=== PATIENT | female | born 1945 | race Caucasian/White ===

== ENCOUNTER → 2021-12-19 15:11 | Outpatient (BNVA) | payer MEDICARE, OTHER, SELFPAY | PROVIDERS: Referring Provider Student in an Organized Health Care Education/Training Program; Visit Provider Specialist | DX: M17.0 Bilateral primary osteoarthritis of knee (principal); M25.561 Pain in right knee; G89.29 Other chronic pain; M21.161 Varus deformity, not elsewhere classified, right knee; R22.41 Localized swelling, mass and lump, right lower limb; M21.162 Varus deformity, not elsewhere classified, left knee | CPT/HCPCS: 73560; 73565; 99204 ==

== ENCOUNTER 2022-01-08 16:22 | Outpatient (CLI) | payer MEDICARE, OTHER, SELFPAY ==
--- NOTE | 2022-01-08 16:15 | USCV_ITS ---
Kait Simmons Age: 76 Gender: F : 1945 Exam Date: 01/08/2022 16:36 Ordering Phys: Rajni Drummond MD Technologist: Miller Norton [place]am [place] [facility] [place] Indication: swelling PROCEDURES: Venous duplex imaging was performed in bilateral lower extremities. The following venous structures were evaluated: common femoral vein, profunda vein, proximal portion of the greater saphenous vein, superficial femoral vein, and the popliteal vein. In addition, the posterior tibial and peroneal trunk were evaluated. Serial compression, augmentation maneuvers, and spectral Doppler flow evaluation were performed. FINDINGS: Normal 2-D Doppler and augmentation and compressibility throughout the lower extremity venous structures. Additional imaging through the proximal calf veins also reveals no thrombus. Limited evaluation of the greater saphenous vein is patent with no thrombus.. CONCLUSIONS No evidence of right lower extremity DVT. No evidence of left lower extremity DVT. Triston Saunders MD (Electronically Signed) Final Date: 08 January 2022 17:02 S
== END 2022-01-08 16:23 | disposition home or self-care (01) ==
PROVIDERS: PCP Student in an Organized Health Care Education/Training Program; Visit Provider Specialist
DX: M79.89 Other specified soft tissue disorders (principal)
CPT/HCPCS: 93970

== ENCOUNTER 2022-01-15 16:11 | Observation (INO) | payer MEDICARE, OTHER, SELFPAY ==
[2022-01-08 13:17] VITALS: BMI 22.7
--- NOTE | 2022-01-08 14:01 | ANES.PREANE2 ---
Pre-Anesthetic Assessment Height/Weight: Height 1.57 m Weight 56.472 kg Preop Diagnosis: Degenerative osteoarthritis right knee Operation Date: 01/15/22 10:25 Proposed Procedures p RIGHT TOTAL KNEE WITH REVISION COMPONENTS 59778,M21.161,M21.162,M17.10(Right) - Rajni Drummond MD Familial anesthetic complications: Patient told she needs a glidescope size 3 - probable anterior airway Social No alcohol and No tobacco Exam alert, oriented x 3, clear to auscultation bilaterally and regular rate & rhythm Airway Submandibular: within normal limits Cervical ROM: within normal limits Mallampati: Class I Dentition: other (missing) Pulmonary None reported CV/HEM Hypertension None reported Hepatic None reported GI None reported Metabolic None reported Musc/skel None reported Neuropsych None reported Anesthetic Plan ASA status: 2 Anesthesia: MAC and Regional (specify below) Risk of > 500 ml blood loss (7ml/kg in children): Yes, adequate IV access and fluids planned Medications/Allergies Home Medications Medication Instructions Recorded Confirmed Last Taken Type lisinopril 20 mg tablet 20 mg PO DAILY 12/19/21 01/08/22 Unknown History Allergies Allergy/AdvReac Type Severity Reaction Status Date / Time prochlorperazine Allergy ALGY-Anaphy Verified 01/08/22 13:15 [From Compazine] laxis [facility] Anesthesia Social History Smoking and tobacco status: never smoked Second hand smoke exposure: No Smoking risk assessment/counseling performed?: No Alcohol intake: never Adopted: No Caregiver/support person: Yes Lives independently: No Household members: spouse Housing: House Marital status: Number of children: 0 Number of grandchildren: 0 Highest education level completed: High School Graduate service: No Current occupational status: retired Current occupational exposures/hazards: No Pets and animals: No Sexually active: Yes Current gender identity: Female Special abilio needs: No Agree to transfusion: Yes Data Anesthesia : 01/08/22 13:45 01/08/22 13:45 Cardiac Studies: No Data to Display
[2022-01-08 14:03] LABS: Basophils % 0.5 %; Eosinophils # 0.1 10^3/uL (0.0-0.8); Eosinophils % 0.9 %; Hematocrit 35.8 % (37.0-47.0); Hemoglobin 11.2 g/dL (11.5-15.3); Lymphocytes # 1.8 10^3/uL (0.8-4.8); Lymphocytes % 23.1 %; Mean Corpuscular HGB Conc 31.3 g/dL (30.0-36.0); Mean Corpuscular Hemoglobin 25.5 pg (28.0-34.0); Mean Corpuscular Volume 81.4 fl (81-99); Mean Platelet Volume 9.9 fL (7.4-10.4); Monocytes # 0.8 10^3/uL (0.2-0.9); Monocytes % 9.5 %; Neutrophils # 5.17 10^3/uL (1.8-7.7); Neutrophils % 65.6 %; Nucleated Red Blood Cells % 0 %; Platelet Count 316 10^3/cmm (130-400); Red Cell Distribution Width 18.6 % (12.1-15.1); White Blood Count 7.9 10^3/uL (4.0-10.0)
[2022-01-08 14:22] LABS: Alanine Aminotransferase 18 U/L (0-33); Albumin Level 4.3 g/dL (3.5-5.2); Alkaline Phosphatase 82 U/L (35-105); Anion Gap 11.5 (5-19); Aspartate Amino Transferase 21 U/L (0-32); Blood Urea Nitrogen 14 mg/dL (8-23); Calcium 9.7 mg/dL (8.5-10.5); Carbon Dioxide 28 mmol/L (22-29); Chloride 101 mmol/L (98-107); Globulin 3.4 g/dL (1.3-4.6); Glucose 93 mg/dL (65-115); Osmolality Calculated 282 mOsm/kg (285-295); Potassium 4.5 mmol/L (3.5-5.1); Sodium 136 mmol/L (136-145); Total Bilirubin 0.2 mg/dL (0.15-1.2); Total Protein 7.7 g/dL (6.6-8.7)
[2022-01-08 14:23] LABS: Add Urine Microscopic? YES; Bilirubin Urine Neg (Negative); Blood Urine Neg (Negative); Glucose Urine UA Norm (Normal); Ketones Urine Negative (Negative); Leukocyte Esterase Urine 2+ (Negative); Nitrate Urine Negative (Negative); Protein Urine Neg (Negative); Specific Gravity, Urine 1.005 (1.005-1.030); Urine Appearance Clear (CLEAR); Urine Color Yellow (Yellow); Urobilinogen Urine Norm (Negative); pH Urine 6 (5-7)
[2022-01-08 14:24] LABS: Add Urine Culture? No; RBC Urine 0-4 /hpf (0-2); Renal Epithelial Cells Urine 0-4 /hpf; Squamous Epithelial Cell Urine 0-4 /hpf (0-5); WBC Urine 0-4 /hpf (0-5)
[2022-01-15] VITALS (18 sets, daily range): BP systolic 149–186; BP diastolic 73–97; PULSE 80–97; RESP 14–20; TEMP 36.2–36.7; O2SAT 91–100
--- NOTE | 2022-01-15 09:07 | P.ANESUD_ITS ---
Pre-Anesthetic Update Pre-Anesthetic Assessment: Date of Surgery/Procedure: 01/15/22 Preop [place] gnosis: Degenerative osteoarthritis right knee Proposed Procedure: Operation Date: 01/15/22 10:25 Proposed Procedures p RIGHT TOTAL KNEE WITH REVISION COMPONENTS 74469,M21.161,M21.162,M17.10(Right) - Rajni Drummond MD Any changes to Pre-Anesthetic Assessment?: No Last Intake: Intake Last Liquid Date 01/14/22 Last Liquid Time 22:30 Last Solid Date 01/14/22 Last Solid Time 22:30 Vitals: Temperature 97.7 F 01/15/22 08:46 Temperature Source Temporal Artery S can 01/15/22 08:46 Pulse Rate 94 01/15/22 08:46 Pulse Rhythm 01/15/22 08:48 Pulse Strength 3+ Normal 01/15/22 08:48 Respiratory Rate 16 01/15/22 08:46 Blood Pressure 176/96 01/15/22 08:46 Blood Pressure Jessy n 122 01/15/22 08:46 Pulse Oximetry 99 01/15/22 08:46 Oxygen Delivery Me thod 01/15/22 08:48 Exam: Pre-Anes Outpt Exam: alert, oriented x 3, clear to auscultation bilaterally and regular rate & rhythm Other Pertinent Information: Other Pertinent Information: We discussed risk and benefits of general vs spinal anesthesia including DVT risk, infection, paralysis/catastrophic nerve injury, back bruising/pain, PDPH, conversion to general in case of spinal, PONV, sore throat (sometimes severe), corneal abrasion, positioning and peripheral nerve injuries, life threatening a llergic reaction, post operative ICU admission requiring prolonged intubation, stroke, heart attack, , post operative delirium and/or post operative cognitive decline, and rare incidences of recall (under general anesthesia). We discussed risk and benefits of nerve block for post op pain control including management of pain and titration of pain medications as signs/symptoms of nerve block wearing off begin to appear and/or prior bed. We discussed risk of failed nerve block, vascular injury or other vital structure injury, abscess/infection, LAST, and nerve injury. Patient re consents to spinal with adductor canal block for post op pain control. Cardiac Studies: No Data to Display
[2022-01-15] MEDS: acetaminophen 1,000 MG/100 ML PIGGYBACK 400 MG IV ×2 (09:40→17:02)
[2022-01-15] MEDS: sodium chloride 0.9% 1,000 ML 30 ML IV (09:43)
[2022-01-15] MEDS: CELEcoxib 200 mg Capsule 400 MG PO (09:45)
--- NOTE | 2022-01-15 09:48 | P.HPUD_ITS ---
Surgery/Procedure H&P Update DATE OF PROCEDURE: January 15, 2022 DATE H&P PERFORMED: 12/19/21 H&P UPDATE INFORMATION: I have reviewed H&P completed within last 30 days, I have examined patient prior to procedure, No changes to prior documentation and H&P is in [facility] [place] [facility] on date indicated PREOP DIAGNOSIS: Degenerative osteoarthritis right knee PLANNED PROCEDURE: Operation Date: 01/15/22 10:25 Proposed Procedures p RIGHT TOTAL KNEE WITH REVISION COMPONENTS 74574,M21.161,M21.162,M17.10(Right) - Rajni Drummond MD Related Problem List Diagnoses (1) Primary osteoarthritis of right knee: (2) Varus deformity, not elsewhere classified, right knee:
--- NOTE | 2022-01-15 10:26 | ANES.PROC ---
Anesthesia Procedures Procedure/Date: 01/15/22 Nerve Block ^: Nerve Block 1: Main Anesthesia: spinal anesthesia block Time Out Performed: Yes Consent: requested by attending/covering physician, from patient, risks and benefits reviewed and patient agrees to proceed Nerve block location: adductor canal Anesthesia monitors applied: pulse oximetry, EKG, BP cuff and oxygen Nerve block position: semi sitting Anesthetic Used: bupivacaine 0.5% Amount of anesthesia used (mL): 20 Ultrasound used to: recognize landmarks and visualize and ID femerol nerve Nerve Stimulator Used?: No Interscalene/Femoral BLK: 4 stimuplex 21 g needle used for position and inplane approach, visualize local anesthetic spread and no vascular puncture identified Injection: neg aspiration of heme Patient Tolerated Procedure: well Complications: none Additional Comments: After time out sterile prep, using sterile technique, and using real time US guidance for target selection needle was inserted with real time visualization of needle entry and real time visualization of needle advancement toward intended target. Negative aspiration. LA injected incrementally with negative aspiration every 5 cc and real time US visualization of LA spread throughout procedure. Tolerated well. Image(s) saved.
--- NOTE | 2022-01-15 10:28 | SUR.PHASEI ---
10:10 TIME OUT PERFORMED..NERVE BLOCK PERFORMED BY Kane. PATIENT TOLERATED WELL.
[2022-01-15] MEDS: ceFAZolin 2,000 MG in sodium chloride 0.9% (plus) 50 ML 100 MG IV ×2 (11:25→18:55)
[2022-01-15] MEDS: vancomycin 1,000 MG SDV 1000 MG XX (12:28)
[2022-01-15] MEDS: ceFAZolin 2,000 mg SDV 2000 MG IRRIGATION (12:30)
--- NOTE | 2022-01-15 14:50 | XRR_ITS ---
PROCEDURE INFORMATION: Exam: XR Right Knee Exam date and time: 01/15/2022 3:02 PM Age: 76 years old Clinical indication: Device placement; Joint replacement hardware; Prior surgery; Surgery date: Post-operative (0-2 days); Surgery type: Status post revision right knee arthroplasty TECHNIQUE: Imaging protocol: Radiologic exam of the Right knee. Views: 3 views. COMPARISON: CR XR knees AP WB w RT lmt ORTH 12/19/2021 3:16 PM FINDINGS: Bones/joints: Metallic knee replacement hardware is in place in good position showing no evidence of loosening. The [place] bones are unremarkable. Soft tissues: Postoperative soft tissue findings are seen in the anterior knee with effusions, subcutaneous emphysema, and metallic alix in place. XR/XR knee RT 3V* [id number] IMPRESSION: 1. Metallic knee replacement in good position. 2. No acute bony abnormality. 3. Postoperative soft tissue effects anterior knee
--- NOTE | 2022-01-15 14:53 | PM.OP ---
Operative Report Date of procedure: January 15, 2022 Pre-op diagnosis: Right knee severe degenerative osteoarthritis with varus deformity and significant bone loss Post-op diagnosis: Right knee severe degenerative osteoarthritis with varus deformity and significant bone loss Post-op findings: Large bone loss particularly medial femoral condyle with cystic change and complete obliteration of bone posteriorly. Severe degenerative osteoarthritis with valgus deformity and lack of range of motion. Procedure done: Revision cemented right total knee arthroplasty utilizing revision femoral and tibial components with augments Implants: [employer] total knee system with a size 2 universal cemented triathlon tibial baseplate, a triathlon total knee cemented stem size 12 mm x 50 mm, tibial augment, half blocks, size 2 x 5 mm for medial and lateral tibia, size 2 right posterior stabilized cemented triathlon femur with a size 2 x 10 mm posterior augment. The triathlon X3 total stabilizer plus tibial insert size 2 x 11 mm and an asymmetric patella size 29 x 9 mm Specimens removed/disposition: Bone, disposed of, and soft tissue cyst sent to pathology Pathology: Cyst Surgeon: Rajni Drummond Laborer Syrup Machine: [facility] operating room technicians Anesthesia: General (General intubated following failed attempt at spinal anesthesia, ASA 2, with supplemental block) Estimated blood loss (mL): 100 Tourniquet time (min): 90 (At 250 mmHg) IV fluids (mL): 1,200 Urine output (mL): 250 Complications: None Findings: Significant synovitis and joint effusion. Cystic pockets within the synovium consistent with a large joint effusion. Cystic changes within the bone consistent with a severe degenerative osteoarthritis. Large bone loss medial femoral condyle primarily posteriorly. Condition: stable Disposition: PACU (Then discharged to floor for postoperative rehabilitation and pain management) Brief History: Kait Simmons is a new 76 year old female patient who is here today due to right knee pain. Patient states that she has had pain since July of this year with no known injury.? Patient rated pain at 5/10 in clinic, but she had significant limitations in her activities of daily living. Patient has tried Aleve and ibuprofen but it did not help relieve pain.? Pain in her right knee wakes her up at night, and she is unable to go up/down stairs or walk long distances. After discussion in the office, the patient was noted to have severe deformity of the knee. There were large cystic changes within the knee. We discussed the need for total knee arthroplasty, but the patient was advised that this would essentially be a revision surgery rather than a primary as we would require wedges and stems to correct the deformity. She had significant posterior subluxation and varus deformity to the knee. Risks and complications were discussed with her. Consents were signed. Questions were answered. Procedure: The patient was brought to the operating theater, and after undergoing adequate general anesthesia, intubated, supplemented with regional block and sedation, ASA 2, the right lower extremity was prepped with Dura-Prep and draped in usual fashion following placement of a tourniquet high on the leg. The leg was then draped free. Following prepping and draping, the leg was exsanguinated, and the tourniquet was elevated to 250 mmHg for a total tourniquet time of 90 minutes.? Prior to elevation of the tourniquet, but following exposure of the site of surgery, a surgical pause was performed. At the time of the surgical pause, we confirmed the site and side of surgery. Additionally, we confirmed the appropriate and timely administration of preoperative antibiotics, Ancef 2 g. and Transexemic acid 1 g with an additional gram of Transexemic acid being given at the end of the surgical procedure. The availability of equipment was confirmed, and the patient's identity was verbalized as well. Following the surgical pause, an incision was made centering over the patella continuing proximally and distally as necessary to allow access to the knee joint. Dissection continued through skin and soft tissues using a scalpel. Hemostasis was obtained using electrocautery. The skin incision was followed by a median parapatellar arthrotomy. There was noted to be significant fluid within the joint. There was also noted to be a large cyst along the medial aspect of the suprapatellar pouch. This was resected and sent to pathology. Following this, the leg was extended and the patella was everted. The leg was then returned to flexed position.? The distal femur was exposed and a drill hole was made in this for placement of the distal femoral jig. The distal femoral jig was set at 5? of valgus. The distal femoral cutting block was then placed in appropriate position, and an monica wing was used to confirm an appropriate amount of distal femur would be resected.? The distal femoral resection was accomplished with 8 mm of bone being resected distally.? After the distal femoral resection had been accomplished, the femur was measured and it measured a size 2 anterior to posterior.? Medial lateral dimension was a size 1-2.? A size 2 femoral cutting block was placed in position, and we were then able to accomplish the anterior, posterior and chamfer cuts. This jig was then removed. There was noted to be a large cyst in the medial femoral condyle. This essentially encompassed the entire medial femoral condyle. There was deficiency of bone distally posteriorly and laterally. This was cleaned with a combination of curettes and a rongeur. Secondary to this large cyst, we placed a posterior cruciate retaining trial prosthesis, size 2, in place to allow us to retract the femur posteriorly and progressed with preparation of the proximal tibia. The posterior knee retractor was placed along with medial and lateral retractors. Further resection of the menisci was accomplished as we had better visualization. A complete meniscectomy was performed both medially and laterally with care being taken to protect the popliteus. Retractors were then placed so that the proximal tibia was well visualized. A drill hole was then made in the tibia for placement of the intramedullary guide. This guide was placed so that approximately 2 mm of bone would be resected from the deficient lateral tibial plateau, and with this, we resected approximately 9 mm from the nondeficient lateral aspect of the tibia. There was noted to be a small area on the posterior medial corner of the proximal tibia which was not resected, but we elected to leave this rather than proceed with further resection. The intramedullary guide was utilized supplemented with an extramedullary guide to assure appropriate alignment for the proximal tibial resection. The proximal tibial jig was then evaluated, pinned in position, and the proximal tibial resection was accomplished without difficulty. The jig was removed, and the proximal tibia was measured. It measured a size 2. At this point, a posterior cruciate retaining trial prosthesis was removed. We then placed the cutting guide to remove the notch for a posterior stabilized femoral component with matching tibial insert. The notch was removed uneventfully. Further evaluation of the medial femoral condyle caused me to elect to resect approximately 10 mm from the posterior aspect of the femur with plans to place a posterior femoral augment. Once we had resected for this augment, we had a contained femoral defect which was still large, but it was discharged closed posteriorly and nearly completely closed laterally. As there were no trials for the femur with posterior femoral augment, we performed a trial reduction with the actual femoral component with the augment in position. We then attempted a trial reduction with a size 2 by 13 mm insert.? Osteophytes were also removed from the tibia.? The femoral component was placed in position for the trial reduction, and the knee was placed through range of motion.? There was some laxity laterally, and therefore, we performed a slight medial release and a slight posterior release. We were then able to place a size 2 x 16 mm insert. With this, there was excellent stability with excellent varus-valgus alignment with appropriate patellar tracking.? Extension was noted to be full as well.? This was felt to be the appropriate size insert. There was full extension and flexion without lift off and the rotation of the tibia was marked.? Alignment was checked from the hip to the ankle, and this was noted to be appropriate as well. Rather than placed a 16mm insert in position, we elected to place augments on the tibia 5 mm medially and 5 mm laterally to allow us to use an 11 mm insert. A trial reduction was then accomplished with this construct, and we had the same appropriate range of motion, flexion, and extension. The wound was copiously irrigated. The surfaces were dried. Components were put together including the femur which had been previously constructed. The tibia was constructed with a medial and lateral augment as well as a short stem size 12 mm x 50 mm. Proximal tibia was prepared for the stem with a drill and a broach. This small area of posterior medial corner was drilled with a pin on power to allow cement penetration in this area. Cementing was then accomplished of the tibia and femoral components. The size 2 x 11 mm total stabilizer plus insert was placed in position. We did not use the fixation pin as we were repairing it with a posterior stabilized femoral component rather than a total stabilized femoral component. Attention was then directed to the patella. The patella was measured with a caliper.? We resected sufficient patella to leave approximately 14 mm of patella remaining.? Measurements of the patella then indicated that a size asymmetric 29 mm x 9 mm was the appropriate patellar size. We then placed the jig to drill for the 3 pegs of the cemented patella, and these drill holes were made without incident. The size 29 mm x 9 mm asymmetric patella was cemented into position without difficulty. It was held until cement had fully cured and all surfaces of the prosthetic components. Excess cement was cleared from all areas prior to cement curing. The knee was then placed through range of motion once again. All components were evaluated for any further extruded cement. The patella was noted to track nicely without evidence of subluxation.? Exparel was injected following placement of the components. The knee was irrigated with 20 mL of Betadine and 500 mL of normal saline, and this was allowed to remain in the knee for 3-4 minutes.? The knee was then copiously irrigated and suctioned dry. Attention was then directed to closure. Closure was accomplished with 0 Vicryl in the fascial tissues.? Following this, a 2-0 Monocryl was used in the subcutaneous tissues, and the skin was closed with skin alix. A sterile dressing was then placed consisting of Dermabond Prineo, Op Site, sterile soft roll, and an Justen wrap. The patient was returned the Recovery Room in a satisfactory condition. X-rays were obtained there.? The patient will be discharged to the floor for postoperative rehabilitation and pain management. Related Problem List Diagnoses (1) Primary osteoarthritis of right knee: (2) Varus deformity, not elsewhere classified, right knee:
--- NOTE | 2022-01-15 16:25 | PC.NURSE ---
Dr. Drummond contacted and notified of patients blood pressures of 182/93 and repeat of 174/83 via ADDING MACHINE OPERATOR. ADDING MACHINE OPERATOR notified RN Dr. Drummond gave orders to give daily blood pressure medication. ALBINO GOMEZ
--- NOTE | 2022-01-15 16:39 | PC.NURSE ---
Orders clarified on continuous IV infusion. Orders received to have 1/2 NS at 30 mls/hr. ALBINO GOMEZ
[2022-01-15] MEDS: chlorhexidine gluconate 0.12% Btl 473 mL 30 ML MUCOUS MEM ×2 (17:02→21:40)
[2022-01-15] MEDS: lisinopril 20 mg Tablet PO (17:02)
[2022-01-15] MEDS: sennosides-docusate Tablet 2 TAB PO (17:02)
[2022-01-15] MEDS: calcium carbonate 500 mg Chew Tablet 1000 MG PO (17:16)
[2022-01-15] MEDS: sodium chloride 0.45% 1,000 ML 30 ML IV (17:17)
[2022-01-15] MEDS: iron polysaccharide complex 150 mg Capsule PO (17:20)
[2022-01-15] MEDS: mupirocin oint 22 gm 1 APPLIC NASAL (18:23)
[2022-01-15] MEDS: CELEcoxib 200 mg Capsule PO (21:40)
[2022-01-16] VITALS: BP 150/74; PULSE 80; O2SAT 96
[2022-01-16] MEDS: acetaminophen 1,000 MG/100 ML PIGGYBACK 400 MG IV ×2 (01:25→09:54)
[2022-01-16] MEDS: ceFAZolin 2,000 MG in sodium chloride 0.9% (plus) 50 ML 100 MG IV ×2 (03:15→11:41)
[2022-01-16 04:00] VITALS: BP 159/72; PULSE 90; TEMP 36.8; O2SAT 96
[2022-01-16 04:52] LABS: Basophils % 0.2 %; Hematocrit 29.7 % (37.0-47.0); Hemoglobin 9.5 g/dL (11.5-15.3); Lymphocytes # 1.7 10^3/uL (0.8-4.8); Lymphocytes % 14.3 %; Mean Corpuscular Volume 81.1 fl (81-99); Mean Platelet Volume 10.5 fL (7.4-10.4); Monocytes # 1.1 10^3/uL (0.2-0.9); Monocytes % 9.5 %; Neutrophils # 8.88 10^3/uL (1.8-7.7); Neutrophils % 75.7 %; Nucleated Red Blood Cells % 0 %; Platelet Count 257 10^3/cmm (130-400); Red Blood Count 3.66 10^6/uL (4.1-5.3); Red Cell Distribution Width 17.7 % (12.1-15.1); White Blood Count 11.7 10^3/uL (4.0-10.0)
[2022-01-16 05:02] LABS: Blood Urea Nitrogen 9 mg/dL (8-23); Calcium 9.4 mg/dL (8.5-10.5); Carbon Dioxide 22 mmol/L (22-29); Chloride 97 mmol/L (98-107); Glucose 104 mg/dL (65-115); Osmolality Calculated 273 mOsm/kg (285-295); Sodium 132 mmol/L (136-145)
[2022-01-16] MEDS: cholecalciferol (vitamin D3) 1,000 unit Tablet 1000 UNIT PO (07:52)
[2022-01-16] MEDS: TRAMadol 50 mg Tablet PO ×2 (07:52→11:41)
[2022-01-16] MEDS: lisinopril 20 mg Tablet PO (07:52)
[2022-01-16] MEDS: sennosides-docusate Tablet 2 TAB PO (07:53)
[2022-01-16] MEDS: aspirin 325 mg EC Tablet PO (07:53)
[2022-01-16] MEDS: mupirocin oint 22 gm 1 APPLIC NASAL (07:54)
[2022-01-16] MEDS: chlorhexidine gluconate 0.12% Btl 473 mL 30 ML MUCOUS MEM (07:54)
[2022-01-16] MEDS: iron polysaccharide complex 150 mg Capsule PO (07:54)
[2022-01-16] MEDS: calcium carbonate 500 mg Chew Tablet 1000 MG PO (07:54)
--- NOTE | 2022-01-16 08:00 | PC.NURSE ---
Jonatan with PT notified of patient having pain medication and ready for therapy. ALBINO GOMEZ
--- NOTE | 2022-01-16 09:41 | PC.NURSE ---
Patient up to bathroom with standby assist with RN. Patient tolerates activity well. Patient catheter removed at this time.
[2022-01-16] MEDS: multivitamin therapeutic Tablet 1 TAB PO (09:54)
[2022-01-16] MEDS: oxyCODONE 5 mg IR Tab/Cap PO (09:54)
[2022-01-16] MEDS: CELEcoxib 200 mg Capsule PO (09:54)
--- NOTE | 2022-01-16 10:16 | PC.OT ---
OT EVALUATION COMPLETED. PATIENT DEMONSTRATES NO DEFICITS IN ADL. NO FURTHER SKILLED OT REQUIRED.
[2022-01-16 10:22] VITALS: BP 116/64; PULSE 86; TEMP 36.6; O2SAT 95
--- NOTE | 2022-01-16 13:23 | PC.NURSE ---
Dr. Drummond at bedside. Orders received for discharge. ALBINO GOMEZ
--- NOTE | 2022-01-16 14:23 | PM.DCS ---
Discharge Providers Date of Admission: 01/15/22 16:11 Date of Discharge: January 16, 2022 Attending Provider at Admission: Rajni Drummond MD Attending Provider at Discharge: Rajni Drummond MD Primary Care Provider: Saturnino Clifford Diagnoses at Discharge Discharge Diagnosis (1) History of revision of total replacement of right knee joint: Status: Acute Permanent problem details: Date of procedure: January 15, 2022 Diagnosis: Right knee severe degenerative osteoarthritis with varus deformity and significant bone loss Post-op findings: Large bone loss particularly medial femoral condyle with cystic change and complete obliteration of bone posteriorly. Severe degenerative osteoarthritis with valgus deformity and lack of range of motion. Procedure done: Revision cemented right total knee arthroplasty utilizing revision femoral and tibial components with augments Implants: The ViaCube total knee system with a size 2 universal cemented triathlon tibial baseplate, a triathlon total knee cemented stem size 12 mm x 50 mm, tibial augment, half blocks, size 2 x 5 mm for medial and lateral tibia, size 2 right posterior stabilized cemented triathlon femur with a size 2 x 10 mm posterior augment. The triathlon X3 total stabilizer plus tibial insert size 2 x 11 mm and an asymmetric patella size 29 x 9 mm (2) Primary osteoarthritis of right knee: Status: Acute (3) Varus deformity, not elsewhere classified, right knee: Status: Acute Reason for Visit Reason for Visit: unilateral primary osteoarthritis, right knee Brief History: Kait Simmons is a 76 year old female patient who initially presented to my office due to right knee pain. Patient states that she has had pain since July of this year with no known injury.? Patient rated pain at 5/10 in clinic, but she had significant limitations in her activities of daily living. Patient has tried Aleve and ibuprofen but it did not help relieve pain.? Pain in her right knee wakes her up at night, and she is unable to go up/down stairs or walk long distances.? After discussion in the office, the patient was noted to have severe deformity of the knee.? There were large cystic changes within the knee.? We discussed the need for total knee arthroplasty, but the patient was advised that this would essentially be a revision surgery rather than a primary as we would require wedges and stems to correct the deformity.? She had significant posterior subluxation and varus deformity to the knee.? Risks and complications were discussed with her.? Consents were signed.? Questions were answered. Hospital Course Hospital Course Patient was admitted to the hospital for same-day surgery in the form of total knee arthroplasty with revision components. The patient had severe deformities and bone loss within the knee requiring revision surgical intervention. Her surgery included tibial wedges and femoral wedges with cementing of the prosthetic components due to the degree of deformity. Patient tolerated the procedure well. She was admitted to the hospital under observation status postoperatively for pain management and rehabilitation. On the first postoperative day, she was doing well and wished to be discharged to home. Plans were made for outpatient rehabilitation. Physical Exam Const: COMMON NORMALS: no acute distress, average body habitus, patient oriented x3 and alert GENERAL APPEARANCE: cooperative and comfortable ORIENTATION/CONSCIOUSNESS: Yes awake HENMT: COMMON NORMALS: normocephalic and atraumatic HEAD & SCALP: normocephalic and atraumatic Eye: GENERAL EYE: appearance normal, both eyes and all related structures Chest: COMMONS NORMALS: normal inspection of the chest Resp: COMMON NORMALS: normal respiratory effort EFFORT & INSPECTION: Yes able to speak in complete sentences and Yes symmetric chest movement Extremity: RIGHT LOWER EXTREMITY: Yes knee joint (Dressing is removed to the OpSite, and the wound is benign without drainage) Right knee: Yes inspection (No ecchymosis.), Yes palpation (Minimal discomfort.) and Yes neurovascular exam (Intact distally with no evidence of DVT.) Neuro: COMMON NORMALS: patient oriented x3 SENSORIUM/ORIENTATION: Yes alert Psych: COMMON NORMALS: mental status grossly normal APPEARANCE: Yes grossly normal ATTITUDE: Yes calm and Yes engaged ATTENTION/CONCENTRATION: Yes attention grossly intact Skin: COMMON NORMALS: no rashes or lesions noted GENERAL SKIN EXAM: no rashes or lesions noted Urinary Catheter Management: Aparicio Latex: Cath Placed During This Visit: yes, but has since been removed by the nurse Reason for Continuing Indwelling Catheter: Not indwelling catheter Urinary Catheter Date of Insertion: 01/15/22 Urinary Catheter Time of Insertion: 11:45 Date Urinary Catheter Removed: 01/16/22 Time Urinary Catheter Discontinued: 09:42 Discharge Data Studies Completed and Pending Completed Studies During Hospitalization Category Date Time Status XR knee RT 3V* [id number] Urgent Exams 01/15/22 14:50 Completed Pending at discharge Category Date Time Status Pathology: Surgical [PTH] Routine Pth 01/15/22 14:11 Received Radiology Impressions Knee X-Ray 01/15/22 14:50 IMPRESSION: 1. Metallic knee replacement in good position. 2. No acute bony abnormality. 3. Postoperative soft tissue effects anterior knee Laboratory Results WBC 11.7 10^3/uL (4.0-10.0) H 01/16/22 04:04 RBC 3.66 10^6/uL (4.1-5.3) L 01/16/22 04:04 Hgb 9.5 g/dL (11.5-15.3) L 01/16/22 04:04 Hct 29.7 % (37.0-47.0) L 01/16/22 04:04 MCV 81.1 fl (81-99) 01/16/22 04:04 MCH 26.0 pg (28.0-34.0) L 01/16/22 04:04 MCHC 32.0 g/dL (30.0-36.0) 01/16/22 04:04 RDW 17.7 % (12.1-15.1) H 01/16/22 04:04 Plt Count 257 10^3/cmm (130-400) 01/16/22 04:04 MPV 10.5 fL (7.4-10.4) H 01/16/22 04:04 Neut % (Auto) 75.7 % 01/16/22 04:04 Lymph % (Auto) 14.3 % 01/16/22 04:04 [place] % (Auto) 9.5 % 01/16/22 04:04 Eos % (Auto) 0.0 % 01/16/22 04:04 Baso % (Auto) 0.2 % 01/16/22 04:04 Neut # (Auto) 8.88 10^3/uL (1.8-7.7) H 01/16/22 04:04 Lymph # (Auto) 1.7 10^3/uL (0.8-4.8) 01/16/22 04:04 [place] # (Auto) 1.1 10^3/uL (0.2-0.9) H 01/16/22 04:04 Eos # (Auto) 0.0 10^3/uL (0.0-0.8) 01/16/22 04:04 Baso # (Auto) 0.0 10^3/uL (0.0-0.1) 01/16/22 04:04 Nucleated RBC % (auto) 0 % 01/16/22 04:04 Nucleated RBCs # 0.0 /100WBC 01/16/22 04:04 Sodium 132 mmol/L (136-145) L 01/16/22 04:04 Potassium 4.0 mmol/L (3.5-5.1) 01/16/22 04:04 Chloride 97 mmol/L (98-107) L 01/16/22 04:04 Carbon Dioxide 22 mmol/L (22-29) 01/16/22 04:04 Anion Gap 17.0 (5-19) 01/16/22 04:04 BUN 9 mg/dL (8-23) 01/16/22 04:04 Creatinine 0.6 mg/dL (0.5-0.9) 01/16/22 04:04 GFR Calculation Not Reportable 01/16/22 04:04 Glucose 104 mg/dL (65-115) 01/16/22 04:04 Calculated Osmolality 273 mOsm/kg (285-295) L 01/16/22 04:04 Calcium 9.4 mg/dL (8.5-10.5) 01/16/22 04:04 Total Bilirubin 0.2 mg/dL (0.15-1.2) 01/08/22 13:45 AST 21 U/L (0-32) 01/08/22 13:45 ALT 18 U/L (0-33) 01/08/22 13:45 Alkaline Phosphatase 82 U/L (35-105) 01/08/22 13:45 Total Protein 7.7 g/dL (6.6-8.7) 01/08/22 13:45 Albumin 4.3 g/dL (3.5-5.2) 01/08/22 13:45 Globulin 3.4 g/dL (1.3-4.6) 01/08/22 13:45 Urine Color Yellow (Yellow) 01/08/22 14:00 Urine Appearance Clear (CLEAR) 01/08/22 14:00 Urine pH 6 (5-7) 01/08/22 14:00 Ur Specific [place] 1.005 (1.005-1.030) 01/08/22 14:00 Urine Protein Neg (Negative) 01/08/22 14:00 Urine Glucose (UA) Norm (Normal) 01/08/22 14:00 Urine Ketones Negative (Negative) 01/08/22 14:00 Urine Blood Neg (Negative) 01/08/22 14:00 Urine Nitrate Negative (Negative) 01/08/22 14:00 Urine Bilirubin Neg (Negative) 01/08/22 14:00 Urine Urobilinogen Norm mg/dL (Negative) 01/08/22 14:00 Ur Leukocyte Esterase 2+ (Negative) H 01/08/22 14:00 Urine RBC 0-4 /hpf (0-2) H 01/08/22 14:00 Urine WBC 0-4 /hpf (0-5) H 01/08/22 14:00 Ur Squamous Epith Cells 0-4 /hpf (0-5) H 01/08/22 14:00 Ur Renal Epithelial Cell 0-4 /hpf 01/08/22 14:00 Amorphous Sediment Not Reportable 01/08/22 14:00 Urine Bacteria None /hpf (NONE) 01/08/22 14:00 Vitals Last Vital Signs Temp 97.8 F 01/16/22 10:22 Pulse 86 01/16/22 10:22 Resp 14 01/15/22 22:00 BP 116/64 01/16/22 10:22 Pulse Ox 95 01/16/22 10:22 O2 Del Method 01/16/22 10:22 O2 Flow Rate 6 01/15/22 15:05 Discharge Plan Discharge Patient Disposition: Home Condition: Stable Prescriptions: New celecoxib 200 mg Capsule 200 mg PO DAILY 30 Days Qty: 30 0RF aspirin 325 mg Tablet,Delayed Release (Dr/Ec) 325 mg PO DAILY 30 Days Qty: 30 0RF oxycodone 5 mg Tablet 5 mg PO Q4H PRN (Reason: Moderate Pain) 7 Days Qty: 30 0RF Continued lisinopril 20 mg tablet 20 mg PO DAILY Discharge Orders: Discharge Order (Routine); Ordered 01/16/22 Ordered By: Rajni Drummond Other Ambulatory Orders: DME: Walker (Order) Location: None Selected Ordered By: Rajni Drummond Physical Therapy Eval and Treat Outpatient (Order) Timeframe: 6 Weeks Facility: [facility] - Location: Physical Therapy Ordered By: Rajni Drummond Referrals: Rajni Drummond MD [Physician] - 01/28/22 3:00 pm Discharge Diet: Advance as tolerated and Usual diet Discharge Activity: Increase activity as tolerated, Limit activity as instructed, Use walker/crutches as instructed and As per PT/OT instructions Patient Instructions: Osteoarthritis (DC), Joint Replacement Surgery (DC), Knee Replacement (DC), Opioid Safety, Post Operative Pain Activity Restrictions/Additional Instructions: Ice and elevate right lower extremity. You may weight-bear as tolerated. Range of motion and strengthening as tolerated. Discharge Attestations Time Spent in Discharge Care*: greater than 30 min Specific Discharge Activities: educating patient, discussing with window caser/social workers/dc planners, documenting/other paperwork and evaluating patient/reviewing data Quality Metrics Clinical Quality Measures [ No reported AMI, CVA or VTE this stay] Coding Level of Care Code Acute Chg FW DC note Diagnoses History of revision of total replacement of right knee joint Z96.651 Primary osteoarthritis of right knee M17.11 Varus deformity, not elsewhere classified, right knee M21.161
--- NOTE | 2022-01-16 14:59 | PC.NURSE ---
Spoke with Brittanie in case management. Orders faxed to [facility] for PT referral by CHRISTINE.
[2022-01-16 16:09] VITALS: BP 152/64; PULSE 81; RESP 16; TEMP 36.4
--- NOTE | 2022-01-16 17:03 | ANE.PACU2 ---
Inpatient post-anesthesia follow up: Airway intact: Yes Vital signs: Temperature 97.6 F Pulse Rate 81 Respiratory Rate 16 Blood Pressure 152/64 Pulse Oximetry 95 Oxygen Delivery Me thod Room Air Oxygen Flow Rate 6 Fraction of Inspir ed Oxygen Hydration adequate: Yes Nausea and vomiting: No Pain level: 1 Mental status: Baseline
== END 2022-01-16 15:15 | disposition home or self-care (01) ==
PROVIDERS: Admitting Provider Specialist; PCP Student in an Organized Health Care Education/Training Program; Visit Provider Specialist
PROC: (CPT 27447; principal; 2022-01-15 10:05)
DX: M17.11 Unilateral primary osteoarthritis, right knee (principal); M21.161 Varus deformity, not elsewhere classified, right knee; M21.162 Varus deformity, not elsewhere classified, left knee; M25.861 Other specified joint disorders, right knee; M85.861 Other specified disorders of bone density and structure, right lower leg
CPT/HCPCS: 27447; 36415; 51702; 73562; 80048; 80053; 81001; 85025; 88304; 97110; 97161; 97530; C1776; C9290; G0378; J1100; J1170; J2250; J2405; J2704; J3010; J3370; J3490; J7030

== ENCOUNTER → 2022-01-28 14:25 | Outpatient (BNVA) | payer MEDICARE, OTHER, SELFPAY | PROVIDERS: PCP Student in an Organized Health Care Education/Training Program; Visit Provider Nurse Practitioner Family | DX: Z96.651 Presence of right artificial knee joint (principal) | CPT/HCPCS: 73560; 73565; 99024 ==

== ENCOUNTER → 2022-02-25 14:42 | Outpatient (BNVA) | payer MEDICARE, OTHER, SELFPAY | PROVIDERS: PCP Student in an Organized Health Care Education/Training Program; Visit Provider Nurse Practitioner Family | DX: Z96.651 Presence of right artificial knee joint (principal) | CPT/HCPCS: 73560; 73565; 99024 ==

== ENCOUNTER → 2022-05-28 10:24 | Outpatient (BNVA) | payer MEDICARE, OTHER, SELFPAY | PROVIDERS: PCP Student in an Organized Health Care Education/Training Program; Visit Provider Nurse Practitioner Family | DX: Z96.651 Presence of right artificial knee joint (principal); M17.12 Unilateral primary osteoarthritis, left knee; M21.162 Varus deformity, not elsewhere classified, left knee; R53.83 Other fatigue; Z01.818 Encounter for other preprocedural examination; M25.561 Pain in right knee; G89.29 Other chronic pain | CPT/HCPCS: 73560; 73565; 80053; 82728; 83540; 84443; 85025; 99215 ==

== ENCOUNTER → 2022-07-10 10:29 | Outpatient (BNVA) | payer MEDICARE, OTHER, SELFPAY | PROVIDERS: PCP Family Medicine; Visit Provider Nurse Practitioner Family | DX: M21.162 Varus deformity, not elsewhere classified, left knee (principal); M17.12 Unilateral primary osteoarthritis, left knee | CPT/HCPCS: 73560; 73565; 73700; 80053; 81003; 85025; 99214 ==

== ENCOUNTER 2022-07-10 12:10 | Outpatient (CLI) | payer MEDICARE, OTHER, SELFPAY | END 2022-07-10 12:11 | disposition home or self-care (01) | LOC: RT 07-11 12:12 | PROVIDERS: PCP Family Medicine; Visit Provider Specialist | DX: Z13.6 Encounter for screening for cardiovascular disorders (principal); I49.9 Cardiac arrhythmia, unspecified | CPT/HCPCS: 93005 ==

== ENCOUNTER 2022-07-30 16:04 | Observation (INO) | payer MEDICARE, OTHER, SELFPAY ==
[2022-07-10 13:03] VITALS: BMI 22.2
--- NOTE | 2022-07-10 13:13 | ANES.PREANE2 ---
Pre-Anesthetic Assessment Height/Weight: Height 1.57 m Weight 55.111 kg Preop Diagnosis: Degenerative osteoarthritis right knee Operation Date: 07/30/22 07:00 Proposed Procedures p left total knee arthroplasty with hannah guidance 66127,m17.10(Left) - Rajni Drummond MD Familial anesthetic complications: None Social No alcohol and No tobacco Exam alert, oriented x 3, clear to auscultation bilaterally and regular rate & rhythm Airway Mallampati: Class I Dentition: other (missing) Comments: Comments: was told she needs a glidescope size 3 CV/HEM Hypertension Severe anemia - of unknown origin. Received 3 units after the blood draw of 4.6 hgb. NO Hx of kidney disease, no apparent bleeding, no dark stools or blood in stool. Was told she just needed to continue to aggressively take iron supplements. patient states she hasn't felt fatigued since the transfusion. Anesthetic Plan ASA status: 2 Anesthesia: Regional (specify below) Other: spinal and adductor Risk of > 500 ml blood loss (7ml/kg in children): Yes, adequate IV access and fluids planned Medications/Allergies Home Medications Medication Instructions Recorded Confirmed Last Taken Type lisinopril 20 mg tablet 20 mg PO DAILY 12/19/21 07/10/22 01/14/22 08:00 History Allergies Allergy/AdvReac Type Severity Reaction Status Date / Time prednisolone Allergy Unknown Verified 07/10/22 13:00 prochlorperazine Allergy ALGY-Anaphy Verified 07/10/22 11:08 [From Compazine] laxis [facility] Anesthesia Social History Smoking and tobacco status: never smoked Second hand smoke exposure: No Smoking risk assessment/counseling performed?: No Alcohol intake: never Adopted: No Caregiver/support person: Yes Lives independently: No Household members: spouse Housing: House Marital status: Number of children: 0 Number of grandchildren: 0 Highest education level completed: High School Graduate service: No Current occupational status: retired Current occupational exposures/hazards: No Pets and animals: No Sexually active: Yes Current gender identity: Female Special abilio needs: No Agree to transfusion: Yes Data Anesthesia Cardiac Studies: No Data to Display
--- NOTE | 2022-07-10 13:39 | ECG_ITS ---
[facility] Test Date: 2022-07-10 Pat Name: Kait Simmons Department: Room: Gender: Female [employer]ic: : [id number] Requested By: Mercedes López Order Number: [id number] Mikhail MD: Deblert Schulz M.D. Measurements Intervals Simon Rate: 88 P: 24 WA: 123 QRS: 43 QRSD: 85 T: 20 QT: 374 QTc: 455 Interpretive Statements SINUS RHYTHM WITH MARKED SINUS ARRHYTHMIA No previous ECG available for comparison Electronically Signed On 07-10-2022 15:09:31 NURSE RECRUITER by Delbert Schulz M.D. [id number]
[2022-07-10 14:54] LABS: Add Urine Microscopic? NO; Charge for UA Resulting for Rev
[2022-07-10 15:00] LABS: Basophils % 0.5 %; Eosinophils # 0.1 10^3/uL (0.0-0.8); Eosinophils % 0.8 %; Hematocrit 34.8 % (37.0-47.0); Hemoglobin 10.4 g/dL (11.5-15.3); Lymphocytes # 2.7 10^3/uL (0.8-4.8); Lymphocytes % 32.1 %; Mean Corpuscular HGB Conc 29.9 g/dL (30.0-36.0); Mean Corpuscular Hemoglobin 23.4 pg (28.0-34.0); Mean Corpuscular Volume 78.4 fl (81-99); Mean Platelet Volume 9.9 fL (7.4-10.4); Monocytes # 0.8 10^3/uL (0.2-0.9); Monocytes % 9.6 %; Neutrophils # 4.74 10^3/uL (1.8-7.7); Neutrophils % 56.9 %; Nucleated Red Blood Cells % 0 %; Platelet Count 318 10^3/cmm (130-400); Red Blood Count 4.44 10^6/uL (4.1-5.3); Red Cell Distribution Width 22.2 % (12.1-15.1); White Blood Count 8.3 10^3/uL (4.0-10.0)
[2022-07-10 15:25] LABS: Alanine Aminotransferase 20 U/L (0-33); Albumin Level 4.1 g/dL (3.5-5.2); Alkaline Phosphatase 91 U/L (35-105); Anion Gap 14.9 (5-19); Aspartate Amino Transferase 25 U/L (0-32); Blood Urea Nitrogen 15 mg/dL (8-23); Calcium 9.5 mg/dL (8.5-10.5); Carbon Dioxide 26 mmol/L (22-29); Chloride 99 mmol/L (98-107); Globulin 3.8 g/dL (1.3-4.6); Glucose 82 mg/dL (65-115); Osmolality Calculated 282 mOsm/kg (285-295); Potassium 3.9 mmol/L (3.5-5.1); Sodium 136 mmol/L (136-145); Total Bilirubin 0.2 mg/dL (0.15-1.2); Total Protein 7.9 g/dL (6.6-8.7)
[2022-07-10 15:39] LABS: Bilirubin Urine Neg (Negative); Blood Urine Neg (Negative); Glucose Urine UA Norm (Normal); Ketones Urine Negative (Negative); Nitrate Urine Negative (Negative); Protein Urine Neg (Negative); Urine Appearance Clear (CLEAR); Urine Color Yellow (Yellow); Urobilinogen Urine Neg (Negative); pH Urine 6 (5-7)
[2022-07-10 15:40] LABS: Leukocyte Esterase Urine Negative (Negative)
[2022-07-30] VITALS (15 sets, daily range): BP systolic 125–188; BP diastolic 64–80; PULSE 71–99; RESP 15–19; TEMP 36.2–36.6; O2SAT 93–100; BMI 22.2
[2022-07-30] MEDS: acetaminophen 1,000 MG/100 ML PIGGYBACK 400 MG IV ×2 (06:20→17:44)
[2022-07-30] MEDS: CELEcoxib 200 mg Capsule 400 MG PO (06:20)
[2022-07-30] MEDS: gabapentin 300 mg Capsule PO (06:21)
[2022-07-30] MEDS: sodium chloride 0.9% 1,000 ML 30 ML IV (06:24)
--- NOTE | 2022-07-30 06:50 | W.PM.OPSUD ---
Surgery/Procedure H&P Update DATE OF PROCEDURE: July 30, 2022 DATE H&P PERFORMED: 07/10/22 H&P UPDATE INFORMATION: I have reviewed H&P completed within last 30 days, I have examined patient prior to procedure, Changes to prior documentation as noted here and H&P is in [facility] EMR on date indicated CHANGES TO PREVIOUS DOCUMENTATION: Prior total knee arthroplasty required femoral and tibial augments. Tibial augments are available, but femoral augments are not currently in the hospital. These will be requested and the surgical procedure will be delayed until later in the day when revision augments are available. PREOP DIAGNOSIS: Primary osteoarthritis left knee PLANNED PROCEDURE: Operation Date: 07/30/22 07:00 Proposed Procedures p revision left total knee arthroplasty with revision components,m17.10(Left) - Rajni Drummond MD Related Problem List Diagnoses (1) Primary osteoarthritis of left knee: (2) Varus deformity, not elsewhere classified, left knee:
--- NOTE | 2022-07-30 06:53 | W.PM.OPSUD ---
Surgery/Procedure H&P Update DATE OF PROCEDURE: July 30, 2022 DATE H&P PERFORMED: 07/10/22 H&P UPDATE INFORMATION: I have reviewed H&P completed within last 30 days, I have examined patient prior to procedure, No changes to prior documentation and H&P is in [facility] EMR on date indicated PREOP DIAGNOSIS: Primary osteoarthritis left knee PLANNED PROCEDURE: Operation Date: 07/30/22 07:00 Proposed Procedures p left total knee arthroplasty with hannah guidance 62029,m17.10(Left) - Rajni Drummond MD Related Problem List Diagnoses (1) Osteoarthritis of left knee:
--- NOTE | 2022-07-30 07:24 | P.ANESUD_ITS ---
Pre-Anesthetic Update Pre-Anesthetic Assessment: Date of Surgery/Procedure: 07/30/22 Preop [place] gnosis: Primary osteoarthritis left knee Proposed Procedure: Operation Date: 07/30/22 07:00 Proposed Procedures p left total knee arthroplasty with hannah guidance 72780,m17.10(Left) - Rajni Drummond MD Any changes to Pre-Anesthetic Assessment?: No Last Intake: Intake Last Liquid Date 07/29/22 Last Liquid Time 19:30 Last Solid Date 07/29/22 Last Solid Time 19:30 Vitals: Temperature 97.9 F 07/30/22 06:25 Temperature Source Temporal Artery S can 07/30/22 06:25 Pulse Rate 99 07/30/22 06:25 Pulse Rhythm 07/30/22 06:08 Pulse Strength 3+ Normal 07/30/22 06:08 Respiratory Rate 17 07/30/22 06:25 Blood Pressure 177/80 07/30/22 06:25 Blood Pressure Jessy n 112 07/30/22 06:25 Pulse Oximetry 98 07/30/22 06:25 Oxygen Delivery Me thod 07/30/22 06:25 Exam: Pre-Anes Outpt Exam: alert, oriented x 3, clear to auscultation bilaterally and regular rate & rhythm Cardiac Studies: No Data to Display
[2022-07-30] MEDS: ceFAZolin 2,000 MG in sodium chloride 0.9% (plus) 50 ML 100 MG IV ×2 (13:01→20:21)
--- NOTE | 2022-07-30 13:49 | ANES.PROC ---
Anesthesia Procedures Procedure/Date: 07/30/22 Nerve Block ^: Nerve Block 1: Main Anesthesia: spinal anesthesia block Time Out Performed: Yes Consent: requested by attending/covering physician, from patient, risks and benefits reviewed and patient agrees to proceed Nerve block location: adductor canal (left) Anesthesia monitors applied: pulse oximetry, EKG, BP cuff and oxygen Nerve block position: supine Anesthetic Used: ropivicaine 0.5% Amount of anesthesia used (mL): 20 Ultrasound used to: recognize landmarks Nerve Stimulator Used?: No Interscalene/Femoral BLK: 4 stimuplex 21 g needle used for position and inplane approach Injection: neg aspiration of heme Patient Tolerated Procedure: well Complications: none
[2022-07-30] MEDS: vancomycin 1,000 MG SDV 1000 MG XX (13:53)
[2022-07-30] MEDS: ceFAZolin 1,000 mg SDV 2000 MG IRRIGATION (13:54)
[2022-07-30] MEDS: tranexamic acid 1,000 mg/10mL SDV 1000 MG IV (15:21)
--- NOTE | 2022-07-30 16:13 | XRR_ITS ---
PROCEDURE INFORMATION: Exam: XR Left Knee Exam date and time: 07/30/2022 3:22 PM Age: 77 years old Clinical indication: Device placement; Joint replacement hardware; Prior surgery; Surgery date: Post-operative (0-2 days); Surgery type: Left total knee arthroplasty; Additional info: Status post left total knee arthroplasty TECHNIQUE: Imaging protocol: Radiologic exam of the left knee. Views: 1 or 2 views. COMPARISON: CT knee LT [facility] 07/10/2022 11:59 AM FINDINGS: Tubes, catheters and devices: Surgical alix are seen anteriorly. Bones/joints: There is a new left knee prosthesis with prosthetic components in anatomic alignment without evidence fracture loosening. Soft tissues: There is soft tissue gas and intra-articular air from recent surgery. XR/XR knee LT 1-2V [id number] IMPRESSION: Left knee replacement.
--- NOTE | 2022-07-30 16:26 | ANE.PACU2 ---
Inpatient post-anesthesia follow up: Airway intact: Yes Vital signs: Temperature 97.9 F Pulse Rate 99 Respiratory Rate 17 Blood Pressure 177/80 Pulse Oximetry 98 Oxygen Delivery Me thod Room Air Oxygen Flow Rate 8 Fraction of Inspir ed Oxygen Hydration adequate: Yes Nausea and vomiting: No Pain level: 1 Mental status: Baseline
--- NOTE | 2022-07-30 16:32 | P.OP_ITS ---
Operative Report Date of procedure: July 30, 2022 Pre-op diagnosis: Left knee severe degenerative osteoarthritis with varus deformity and significant bone loss, large cystic changes Post-op diagnosis: Left knee severe degenerative osteoarthritis with varus deformity and significant bone loss, large cystic changes Post-op findings: Large bone loss with large cystic changes in the posterior medial femoral condyle with complete obliteration of bone posteriorly. Large cysts in the tibial plateau both medially and laterally. Severe degenerative osteoarthritis with varus deformity and lack of range of motion Procedure done: Revision cemented left total knee arthroplasty utilizing revision femoral and tibial components with augments and stem to the tibia Implants: The [employer] total knee system with a size 2 universal cemented triathlon tibial baseplate, a triathlon total knee cemented stem size 12 mm x 50 mm, tibial augment, half blocks, size 2 x 5 mm for medial and lateral tibia, a size 2 right posterior stabilized cemented triathlon femur with a size 2 x 10 mm posterior augment.? The triathlon X3 total stabilizer plus tibial insert size 2 x 11 mm and an asymmetric patella size 29 x 9 mm Specimens removed/disposition: Bone, disposed of Pathology: none sent Surgeon: Rajni Drummond Cleaning Staff Supervisor: [facility] operating room technicians Anesthesia: MAC (With spinal, ASA 2) Estimated blood loss (mL): 150 Tourniquet time (min): 108 (At 250 mmHg) IV fluids (mL): 1,000 Urine output (mL): 1,000 Complications: None Findings: Large knee effusion with significant synovitis. Cystic changes within the bone as described above. Requirement for revision components and resections. Condition: stable Disposition: PACU (Then to floor for postoperative rehabilitation and pain management.) Brief History: Kait Simmons is a 77-year-old woman who presents today for left total knee arthroplasty. This is a revision type of surgical procedure secondary to the patient's large bone loss, cystic bone loss, and major varus deformity and subluxation of the femur on the tibia. Therefore, this would qualify as revision rather than primary total knee arthroplasty. The patient initially presented to me with bilateral knee pain. She had a right total knee arthroplasty also requiring revision components on January 15, 2022. She had significant limitations in her activities of daily living, and conservative measures were not beneficial for her. Risk and complications were discussed including the fact that we could not use the Steve given her deformities and cystic changes. There would also be concerns for maintenance of the arrays to promote seed with this procedure. Questions were answered and the patient was brought to the operating theater. Procedure: The patient was brought to the operating theater, and after undergoing adequate spinal anesthesia with MAC and supplemental regional block, ASA 2, the left lower extremity was prepped with Dura-Prep and draped in usual fashion following placement of a tourniquet high on the leg. The leg was then draped free. Following prepping and draping, the leg was exsanguinated, and the tourniquet was elevated to 250 mmHg for a total tourniquet time of 108 minutes.? Prior to elevation of the tourniquet, but following exposure of the site of surgery, a surgical pause was performed. At the time of the surgical pause, we confirmed the site and side of surgery. Additionally, we confirmed the appropriate and timely administration of preoperative antibiotics, Ancef 2 g. and Transexemic acid 1 g with an additional gram of Transexemic acid being given at the end of the surgical procedure. The availability of equipment was confirmed, and the patient's identity was verbalized as well. Following the surgical pause, an incision was made centering over the patella continuing proximally and distally as necessary to allow access to the knee joint. Dissection continued through skin and soft tissues using a scalpel. Hemostasis was obtained using electrocautery. The skin incision was followed by a median parapatellar arthrotomy.? There was noted to be significant fluid within the joint.? There was also noted to be a large cyst along the medial aspect of the suprapatellar pouch. Tissue was not sent to pathology as this was sent at the patient's previous procedure. Following this, the leg was extended and the patella was everted. The leg was then returned to flexed position.? The distal femur was exposed and a drill hole was made in this for placement of the distal femoral jig. The distal femoral jig was set at 5? of valgus. The distal femoral cutting block was then placed in appropriate position, and an monica wing was used to confirm an appropriate amount of distal femur would be resected.? The distal femoral resection was accomplished with 10 mm of bone being resected distally secondary to her flexion contracture.? After the distal femoral resection had been accomplished, the femur was measured and it measured a size 2 anterior to posterior.? Medial lateral dimension was a size 1-2.? A size 2 femoral cutting block was placed in position, and we were then able to accomplish the anterior, posterior and chamfer cuts. This jig was then removed.? There was noted to be a large cyst in the medial femoral condyle posteriorly.? This essentially encompassed the entire medial femoral condyle extending to the medial and posterior cortices as well as distal cortex.? There was deficiency of bone distally posteriorly and medially.? This was cleaned with a combination of curettes and a rongeur. We then placed the cutting guide to remove the notch for a posterior stabilized femoral component with matching tibial insert.? The notch was removed uneventfully.? The posterior knee retractor was placed along with medial and lateral retractors. Further resection of the menisci was accomplished as we had better visualization. A complete meniscectomy was performed both medially and laterally with care being taken to protect the popliteus. Retractors were then placed so that the proximal tibia was well visualized. A drill hole was then made in the tibia for placement of the intramedullary guide. This guide was placed so that approximately 2 mm of bone would be resected from the deficient medial tibial plateau, and with this, we resected approximately 9+ mm from the nondeficient lateral aspect of the tibia.? There was noted to be a small area on the posterior medial corner of the proximal tibia which was not resected, but we elected to leave this rather than proceed with further resection. The intramedullary guide was utilized supplemented with an extramedullary guide to assure appropriate alignment for the proximal tibial resection. The proximal tibial jig was then evaluated, pinned in position, and the proximal tibial resection was accomplished without difficulty. The jig was removed, and the proximal tibia was measured. It measured a size 2.? Further evaluation of the medial femoral condyle caused me to elect to resect approximately 10 mm from the posterior aspect of the femur with plans to place a posterior femoral augment.? Once we had resected for this augment, we had a contained femoral defect which was still large, but it was contained posteriorly and nearly completely contained medially.? Attention was then directed to trial reduction. We then attempted a trial reduction with a size 2 by 13 mm insert.? Osteophytes were also removed from the tibia.? The femoral component was placed in position for the trial reduction, and the knee was placed through range of motion.? There was some laxity laterally, and therefore, we performed a medial release and a slight posterior release.? With this, there was excellent stability with excellent varus-valgus alignment with appropriate patellar tracking.? Extension was noted to be full as well.? This was felt to be the appropriate size insert. There was full extension and flexion without lift off and the rotation of the tibia was marked.? Alignment was checked from the hip to the ankle, and this was noted to be appropriate as well.? Rather than placed a 13mm insert in position, we elected to place augments on the tibia 5 mm medially and 5 mm laterally to allow us to use an 9 mm insert.? A trial reduction was then accomplished with this construct, and we had the same appropriate range of motion, flexion, and extension. The wound was copiously irrigated.? The surfaces were dried.? Components were put together including the femur which had been previously constructed.? The tibia was constructed with a medial and lateral augment as well as a short stem size 12 mm x 50 mm.? Proximal tibia was prepared for the stem with a drill and a broach.? This small area of posterior medial corner was drilled with a pin on power to allow cement penetration in this area.? Cementing was then accomplished of the tibia and femoral components.? Care was taken on the tibia to force cement into the cystic areas. Also, with cement was placed into the posterior deficit in the posterior medial femoral condyle. The size 2 x 9 mm total stabilizer plus insert was placed in position.? We did not use the fixation pin as we were constructing the knee with a posterior stabilized femoral component rather than a total stabilized femoral component. Attention was then directed to the patella. The patella was measured with a caliper.? We resected sufficient patella to leave approximately 14 mm of patella remaining.? Measurements of the patella then indicated that a size asymmetric 29 mm x 9 mm was the appropriate patellar size. We then placed the jig to drill for the 3 pegs of the cemented patella, and these drill holes were made without incident.? The size 29 mm x 9 mm asymmetric patella was cemented into position without difficulty.? It was held until cement had fully cured and all surfaces of the prosthetic components.? Excess cement was cleared from all areas prior to cement curing.? The knee was then placed through range of motion once again.? All components were evaluated for any further extruded cement. The patella was noted to track nicely without evidence of subluxation.? Exparel was injected following placement of the components. The knee was irrigated with 20 mL of Betadine and 500 mL of normal saline, and this was allowed to remain in the knee for 3-4 minutes.? The knee was then copiously irrigated and suctioned dry. Attention was then directed to closure. Closure was accomplished with 0 Vicryl in the fascial tissues.? Following this, a 2-0 Monocryl was used in the subcutaneous tissues, and the skin was closed with skin alix. A sterile dressing was then placed consisting of Dermabond Prineo, Op Site, sterile soft roll, and an Justen wrap. The patient was returned the Recovery Room in a satisfactory condition. X-rays were obtained there.? The patient will be discharged to the floor for postoperative rehabilitation and pain management. Related Problem List Diagnoses (1) History of revision of total replacement of left knee joint: (2) Osteoarthritis of left knee:
--- NOTE | 2022-07-30 16:48 | PC.NURSE ---
Report given to student nurse. [email or web address] primary nurse
[2022-07-30] MEDS: sennosides-docusate Tablet 2 TAB PO (17:34)
[2022-07-30] MEDS: chlorhexidine gluconate 0.12% Btl 473 mL 30 ML MUCOUS MEM ×2 (17:34→20:22)
[2022-07-30] MEDS: calcium carbonate 500 mg Chew Tablet 1000 MG PO (17:34)
[2022-07-30] MEDS: iron polysaccharide complex 150 mg Capsule PO (17:34)
[2022-07-30] MEDS: mupirocin oint 22 gm 1 APPLIC NASAL (17:35)
[2022-07-31] VITALS (7 sets, daily range): BP systolic 138–177; BP diastolic 64–72; PULSE 72–83; RESP 16–18; TEMP 36.3–36.9; O2SAT 94–96
[2022-07-31] MEDS: acetaminophen 1,000 MG/100 ML PIGGYBACK 400 MG IV ×2 (01:13→09:23)
[2022-07-31 04:52] LABS: Basophils % 0.4 %; Eosinophils # 0.1 10^3/uL (0.0-0.8); Eosinophils % 0.8 %; Hemoglobin 9.1 g/dL (11.5-15.3); Lymphocytes # 1.4 10^3/uL (0.8-4.8); Lymphocytes % 17.9 %; Mean Corpuscular HGB Conc 30.3 g/dL (30.0-36.0); Mean Corpuscular Hemoglobin 23.8 pg (28.0-34.0); Mean Corpuscular Volume 78.3 fl (81-99); Mean Platelet Volume 9.1 fL (7.4-10.4); Monocytes # 0.9 10^3/uL (0.2-0.9); Monocytes % 11.4 %; Neutrophils # 5.55 10^3/uL (1.8-7.7); Neutrophils % 69.2 %; Nucleated Red Blood Cells % 0 %; Platelet Count 245 10^3/cmm (130-400); Red Blood Count 3.83 10^6/uL (4.1-5.3); Red Cell Distribution Width 22.3 % (12.1-15.1)
[2022-07-31] MEDS: ceFAZolin 2,000 MG in sodium chloride 0.9% (plus) 50 ML 100 MG IV ×2 (04:54→13:14)
[2022-07-31 05:12] LABS: Anion Gap 13.5 (5-19); Blood Urea Nitrogen 14 mg/dL (8-23); Calcium 8.7 mg/dL (8.5-10.5); Carbon Dioxide 24 mmol/L (22-29); Chloride 104 mmol/L (98-107); Glucose 117 mg/dL (65-115); Osmolality Calculated 286 mOsm/kg (285-295); Potassium 4.5 mmol/L (3.5-5.1); Sodium 137 mmol/L (136-145)
[2022-07-31] MEDS: ondansetron 2 mg/ML SDV 2 mL 4 MG IVP (06:35)
[2022-07-31] MEDS: oxyCODONE 5 mg IR Tab/Cap PO ×2 (06:38→13:22)
[2022-07-31] MEDS: CELEcoxib 200 mg Capsule PO (09:17)
[2022-07-31] MEDS: lisinopril 20 mg Tablet PO (09:17)
[2022-07-31] MEDS: aspirin 325 mg EC Tablet PO (09:17)
[2022-07-31] MEDS: cholecalciferol (vitamin D3) 1,000 unit Tablet 1000 UNIT PO (09:17)
[2022-07-31] MEDS: calcium carbonate 500 mg Chew Tablet 1000 MG PO (09:18)
[2022-07-31] MEDS: multivitamin therapeutic Tablet 1 TAB PO (09:18)
[2022-07-31] MEDS: chlorhexidine gluconate 0.12% Btl 473 mL 30 ML MUCOUS MEM ×2 (09:20→13:42)
--- NOTE | 2022-07-31 09:39 | PC.CHAP ---
Pastoral Care Encounter/Spiritual Assessment Type of Contact [] Declined records management assistant visit [] Patient/Family/Request visit [] Outpatient visit [] Follow-up visit [] Physician referral [] Code/Alert [x] Routine visit [] Staff referral [] Actively dying [] Patient sleeping [] Family support [] [] Out of room [] Palliative care [] [] Receiving care in room [] Pre-surgical visit [] Trauma [] Long length of stay [] ICU visit [] Other: Relational/Emotional Strength [x] Patient feels connected with others/family/visitors/staff [] Distress [] Loneliness/isolation [] Abandonment Spirituality of Patient [x] Person of Flor [] Attends Sabianist of their Flor [] Believes in Prayer [] Reads Bible or Anabaptist materials [] There are Spiritual issues to be addressed Dispatcher Maintenance Interventions [] Prayer [x] Active listening [x] Non-anxious presence [x] Spiritual/emotional support [] Crisis/trauma care [] Spiritual counseling [] Bereavement support [] Provided bereavement packet [] Provided Bible/devotional materials [] Provided toy/stuffed animal, coloring book to patient or family member [] Provided Communion [] Anointing/Rembert [] Salvation [x] Completed spiritual assessment [] Other: Impact on Illness or Injury [] Angry [] Fearful [] Anxious [] Often cries [] Exhaustion [] Unable to work [] Unable to attend yazidi [] Unable to walk/stand [] Unable to read [] Unable to drive [] Unable to eat/drink [] Unable to sleep [] Unable to be with family [] Patient intubated [] Other: Summary Pt indicated she was a person of flor and that she has prayer and devotion daily. Dispatcher Maintenance asked if a prayer could be said and she responded her grandfather was a break off worker and had said many many prayers for her. She then thanked the records management assistant for the visit and dismissed. Time spent with patient 10m
[2022-07-31] MEDS: iron polysaccharide complex 150 mg Capsule PO (13:14)
--- NOTE | 2022-07-31 13:59 | PM.DCS ---
Discharge Providers Date of Admission: 07/30/22 16:04 Date of Discharge: July 31, 2022 Attending Provider at Admission: Rajni Drummond MD Attending Provider at Discharge: Rajni Drummond MD Primary Care Provider: Barbara Qunin MD Diagnoses at Discharge Discharge Diagnosis (1) History of revision of total replacement of left knee joint: Status: Acute Permanent problem details: Date of procedure: July 30, 2022 Diagnosis: 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 Large cysts in the tibial plateau both medially and laterally. Severe degenerative osteoarthritis with varus deformity and lack of range of motion Procedure done: Revision cemented left total knee arthroplasty utilizing revision femoral and tibial components with augments and stem to the tibia Implants: The [employer] total knee system with a size 2 universal cemented triathlon tibial baseplate, a triathlon total knee cemented stem size 12 mm x 50 mm, tibial augment, half blocks, size 2 x 5 mm for medial and lateral tibia, a size 2 right posterior stabilized cemented triathlon femur with a size 2 x 10 mm posterior augment. The triathlon X3 total stabilizer plus tibial insert size 2 x 11 mm and an asymmetric patella size 29 x 9 mm (2) Osteoarthritis of left knee: Status: Acute Reason for Visit Reason for Visit: 32136, M17.10 Brief History: Kait Simmons is a 77-year-old woman who presents today for left total knee arthroplasty.? This is a revision type of surgical procedure secondary to the patient's large bone loss, cystic bone loss, and major varus deformity and subluxation of the femur on the tibia.? Therefore, this would qualify as revision rather than primary total knee arthroplasty.? The patient initially presented to me with bilateral knee pain.? She had a right total knee arthroplasty also requiring revision components on January 15, 2022.? She had significant limitations in her activities of daily living, and conservative measures were not beneficial for her.? Risk and complications were discussed including the fact that we could not use the Steve given her deformities and cystic changes.? There would also be concerns for maintenance of the arrays to promote seed with this procedure.? Questions were answered and the patient was brought to the operating theater. Hospital Course Hospital Course This 77-year-old woman was admitted under observation status after same-day surgery in the form of revision left total knee arthroplasty. The patient had revision components as there was significant bone loss and bone defect. She spent the night in the hospital, and worked with physical therapy in the morning. They felt she was safe and ready for discharge to home. She had no issues overnight. After assessment, she was felt to be safe and will have help at home. She does not want home health or outpatient physical therapy. She states she has her previous exercise program and wishes to pursue this as she did the last time. Therefore, she is discharged home to follow-up with me in the office as scheduled. Physical Exam Const: COMMON NORMALS: no acute distress, average body habitus, patient oriented x3 and alert GENERAL APPEARANCE: cooperative and comfortable ORIENTATION/CONSCIOUSNESS: Yes awake HENMT: COMMON NORMALS: normocephalic and atraumatic HEAD & SCALP: normocephalic and atraumatic Eye: GENERAL EYE: appearance normal, both eyes and all related structures Chest: COMMONS NORMALS: normal inspection of the chest Resp: COMMON NORMALS: normal respiratory effort EFFORT & INSPECTION: Yes able to speak in complete sentences and Yes symmetric chest movement Extremity: LEFT LOWER EXTREMITY: Yes knee joint (Large outer dressing is removed. Under dressing dry and intact) Left knee: Yes inspection (Minimal to no swelling.), Yes palpation (No significant tenderness.), Yes ROM (Able to straight leg raise.), Yes neurovascular exam (Intact distally without evidence of DVT) and Yes other (Able to perform straight leg raise easily) Neuro: COMMON NORMALS: patient oriented x3 SENSORIUM/ORIENTATION: Yes alert Psych: COMMON NORMALS: mental status grossly normal APPEARANCE: Yes grossly normal ATTITUDE: Yes calm and Yes engaged ATTENTION/CONCENTRATION: Yes attention grossly intact Skin: COMMON NORMALS: no rashes or lesions noted GENERAL SKIN EXAM: no rashes or lesions noted Urinary Catheter Management: Aparicio: Cath Placed During This Visit: yes Reason for Continuing Indwelling Catheter: Acute Urinary Retention or Obstruction Urinary Catheter Date of Insertion: 07/30/22 Urinary Catheter Time of Insertion: 13:20 Discharge Data Studies Completed and Pending Completed Studies During Hospitalization Category Date Time Status XR knee LT 1-2V 30414 Urgent Exams 07/30/22 16:13 Completed Radiology Impressions Knee X-Ray 07/30/22 16:13 IMPRESSION: Left knee replacement. Laboratory Results WBC 8.0 10^3/uL (4.0-10.0) 07/31/22 04:36 RBC 3.83 10^6/uL (4.1-5.3) L 07/31/22 04:36 Hgb 9.1 g/dL (11.5-15.3) L 07/31/22 04:36 Hct 30.0 % (37.0-47.0) L 07/31/22 04:36 MCV 78.3 fl (81-99) L 07/31/22 04:36 MCH 23.8 pg (28.0-34.0) L 07/31/22 04:36 MCHC 30.3 g/dL (30.0-36.0) 07/31/22 04:36 RDW 22.3 % (12.1-15.1) H 07/31/22 04:36 Plt Count 245 10^3/cmm (130-400) 07/31/22 04:36 MPV 9.1 fL (7.4-10.4) 07/31/22 04:36 Neut % (Auto) 69.2 % 07/31/22 04:36 Lymph % (Auto) 17.9 % 07/31/22 04:36 [place] % (Auto) 11.4 % 07/31/22 04:36 Eos % (Auto) 0.8 % 07/31/22 04:36 Baso % (Auto) 0.4 % 07/31/22 04:36 Neut # (Auto) 5.55 10^3/uL (1.8-7.7) 07/31/22 04:36 Lymph # (Auto) 1.4 10^3/uL (0.8-4.8) 07/31/22 04:36 [place] # (Auto) 0.9 10^3/uL (0.2-0.9) 07/31/22 04:36 Eos # (Auto) 0.1 10^3/uL (0.0-0.8) 07/31/22 04:36 Baso # (Auto) 0.0 10^3/uL (0.0-0.1) 07/31/22 04:36 Nucleated RBC % (auto) 0 % 07/31/22 04:36 Nucleated RBCs # 0.0 /100WBC 07/31/22 04:36 Sodium 137 mmol/L (136-145) 07/31/22 04:36 Potassium 4.5 mmol/L (3.5-5.1) 07/31/22 04:36 Chloride 104 mmol/L (98-107) 07/31/22 04:36 Carbon Dioxide 24 mmol/L (22-29) 07/31/22 04:36 Anion Gap 13.5 (5-19) 07/31/22 04:36 BUN 14 mg/dL (8-23) 07/31/22 04:36 Creatinine 0.5 mg/dL (0.5-0.9) 07/31/22 04:36 GFR Calculation Not Reportable 07/31/22 04:36 Glucose 117 mg/dL (65-115) H 07/31/22 04:36 Calculated Osmolality 286 mOsm/kg (285-295) 07/31/22 04:36 Calcium 8.7 mg/dL (8.5-10.5) 07/31/22 04:36 Total Bilirubin 0.2 mg/dL (0.15-1.2) 07/10/22 13:40 AST 25 U/L (0-32) 07/10/22 13:40 ALT 20 U/L (0-33) 07/10/22 13:40 Alkaline Phosphatase 91 U/L (35-105) 07/10/22 13:40 Total Protein 7.9 g/dL (6.6-8.7) 07/10/22 13:40 Albumin 4.1 g/dL (3.5-5.2) 07/10/22 13:40 Globulin 3.8 g/dL (1.3-4.6) 07/10/22 13:40 Urine Color Yellow (Yellow) 07/10/22 14:20 Urine Appearance Clear (CLEAR) 07/10/22 14:20 Urine pH 6 (5-7) 07/10/22 14:20 Ur Specific [place] 1.010 (1.005-1.030) 07/10/22 14:20 Urine Protein Neg (Negative) 07/10/22 14:20 Urine Glucose (UA) Norm (Normal) 07/10/22 14:20 Urine Ketones Negative (Negative) 07/10/22 14:20 Urine Blood Neg (Negative) 07/10/22 14:20 Urine Nitrate Negative (Negative) 07/10/22 14:20 Urine Bilirubin Neg (Negative) 07/10/22 14:20 Urine Urobilinogen Neg mg/dL (Negative) 07/10/22 14:20 Ur Leukocyte Esterase Negative (Negative) 07/10/22 14:20 Vitals Last Vital Signs Temp 97.3 F L 07/31/22 12:00 Pulse 82 07/31/22 12:00 Resp 18 07/31/22 13:22 BP 172/68 07/31/22 12:00 Pulse Ox 95 07/31/22 13:22 O2 Del Method 07/31/22 12:00 O2 Flow Rate 8 07/30/22 16:06 Discharge Plan Discharge Patient Disposition: Home Condition: Stable Prescriptions: New celecoxib 200 mg Capsule 200 mg PO DAILY 30 Days Qty: 30 0RF acetaminophen 500 mg Tablet 1,000 mg PO Q8H 15 Days Qty: 0 0RF aspirin 325 mg Tablet,Delayed Release (Dr/Ec) 325 mg PO DAILY 30 Days Qty: 0 0RF oxycodone 5 mg Tablet 5 mg PO Q4H PRN (Reason: Moderate Pain) 7 Days Qty: 30 0RF Continued lisinopril 20 mg tablet 20 mg PO DAILY Discharge Orders: Discharge Order (Routine); Ordered 07/31/22 Ordered By: Rajni Drummond Referrals: Rajni Drummond MD [Physician] - 08/12/22 11:00 am Discharge Diet: Advance as tolerated and Usual diet Discharge Activity: Limit activity as instructed, Use walker/crutches as instructed and As per PT/OT instructions Patient Instructions: Acetaminophen (By mouth), Aspirin (By mouth), Celecoxib (By mouth), Oxycodone, Slow Release (By mouth), Knee Replacement (DC), Joint Replacement Stoplight, Opioid Safety Activity Restrictions/Additional Instructions: Ice to left knee. Elevate above the level of your heart. Range of motion, gait training, and strengthening per physical therapy. Discharge Attestations Time Spent in Discharge Care*: greater than 30 min Specific Discharge Activities: educating patient, discussing with ed case manager/social workers/dc planners and documenting/other paperwork Quality Metrics Clinical Quality Measures [ No reported AMI, CVA or VTE this stay] Coding Level of Care Code Acute Code for Chg Fwd Diagnoses History of revision of total replacement of left knee joint Z96.652 Osteoarthritis of left knee M17.12
--- NOTE | 2022-07-31 15:00 | PC.NURSE ---
Reviewed discharge instructions with patient and family at bedside. Patient verbalized understand of follow up appointment and how take pain medications. Patient is A&Ox3. Respirations even and non-labored on room air. Patient pushed to private car.
== END 2022-07-31 14:45 | disposition home or self-care (01) ==
LOC: MEDSURG 16:04
PROVIDERS: Admitting Provider Specialist; PCP Family Medicine; Visit Provider Specialist
PROC: (CPT 27447; principal; 2022-07-30 07:00)
DX: M17.12 Unilateral primary osteoarthritis, left knee (principal); M21.162 Varus deformity, not elsewhere classified, left knee; I10 Essential (primary) hypertension
CPT/HCPCS: 27447; 36415; 51702; 73560; 80048; 80053; 81003; 85025; 97110; 97116; 97161; 97165; C1776; C9290; G0378; J0131; J0690; J2250; J2370; J2405; J2704; J2795; J3010; J3370; J3490; J7030

== ENCOUNTER → 2022-08-12 10:37 | Outpatient (BNVA) | payer MEDICARE, OTHER, SELFPAY | PROVIDERS: PCP Family Medicine; Visit Provider Specialist | DX: Z96.652 Presence of left artificial knee joint (principal); M17.12 Unilateral primary osteoarthritis, left knee | CPT/HCPCS: 73560; 73565; 99024 ==

== ENCOUNTER → 2022-08-19 10:06 | Outpatient (BNVA) | payer MEDICARE, OTHER, SELFPAY | PROVIDERS: PCP Family Medicine; Visit Provider Specialist | DX: Z96.652 Presence of left artificial knee joint (principal) | CPT/HCPCS: 73560; 73565; 99024 ==

== ENCOUNTER → 2022-09-03 14:25 | Outpatient (BNVA) | payer MEDICARE, OTHER, SELFPAY | PROVIDERS: PCP Family Medicine; Visit Provider Nurse Practitioner Family | DX: Z96.652 Presence of left artificial knee joint (principal); M79.89 Other specified soft tissue disorders; M17.12 Unilateral primary osteoarthritis, left knee; Z01.818 Encounter for other preprocedural examination | CPT/HCPCS: 73560; 73565; 87070; 87075; 87077; 87186; 87205; 99213 ==

== ENCOUNTER 2022-09-11 16:35 | Inpatient (IN) | payer MEDICARE, OTHER, SELFPAY ==
[2022-09-11 16:59] VITALS: BMI 21.0
--- NOTE | 2022-09-11 17:32 | USCV_ITS ---
Kait Simmons Age: 77 Gender: F : 1945 Exam Date: 09/11/2022 17:51 Ordering Phys: Rajni Drummond MD Technologist: CT Exam [place] [facility] [place] Indication: LLE SWELLING HISTORY: Lower extremity swelling. PROCEDURES: Venous duplex imaging was performed in only the left lower extremity. The following venous structures were evaluated: common femoral vein, profunda vein, proximal portion of the greater saphenous vein, superficial femoral vein, and the popliteal vein. In addition, the posterior tibial and peroneal trunk were evaluated. Serial compression, augmentation maneuvers, and spectral Doppler flow evaluation were performed. FINDINGS: No evidence of DVT seen in any vessel visualized at this time. CONCLUSIONS No evidence of left lower extremity DVT. Triston Saunders MD (Electronically Signed) Final Date: 12 Sep 2022 10:07 S
--- NOTE | 2022-09-11 17:33 | PM.HP ---
Providers/Chief Complaint Admitting Physician: Rajni Drummond MD Primary Care Provider: Barbara Quinn MD Chief Complaint: Total Left Knee Infection History of Present Illness Kait Simmons is a 77 year old female Medications/Allergies Home Medications Medication Instructions Recorded Confirmed Last Taken Type lisinopril 20 mg tablet 20 mg PO DAILY 12/19/21 09/11/22 1 Day Ago History ~07/29/22 sulfamethoxazole 800 1 tab PO DAILY 7 days #14 tabs 09/03/22 09/11/22 Unknown Rx mg-trimethoprim 160 mg tablet (Bactrim DS) Allergies Allergy/AdvReac Type Severity Reaction Status Date / Time prednisolone Allergy Unknown Verified 09/11/22 14:33 prochlorperazine Allergy ALGY-Anaphy Verified 09/11/22 14:33 [From Compazine] laxis PFSH Acute PFSH: Social History Smoking and tobacco status: never smoked Second hand smoke exposure: No Smoking risk assessment/counseling performed?: No Alcohol intake: never Substance/Drug Use: never Adopted: No Caregiver/support person: Yes Lives independently: No Household members: spouse Housing: House Marital status: Number of children: 0 Number of grandchildren: 0 Highest education level completed: High School Graduate service: No Current occupational status: retired Current occupational exposures/hazards: No Pets and animals: No Sexually active: Yes Do you think of yourself as: Straight/Heterosexual Current gender identity: Female Special abilio needs: No Agree to transfusion: Yes Coding Level of Care Code Acute Code for Chg Fwd Diagnoses
--- NOTE | 2022-09-11 18:22 | PM.MISC ---
Miscellaneous Note Purpose of Documentation: History and physical Note: Please use office note in EMR to serve as history and physical.
[2022-09-11 19:25] VITALS: BP 136/63; PULSE 94; RESP 16; TEMP 36.6; O2SAT 100
[2022-09-11 19:54] LABS: Basophils % 0.2 %; Eosinophils # 1.1 10^3/uL (0.0-0.8); Eosinophils % 8.8 %; Hematocrit 23.4 % (37.0-47.0); Hemoglobin 7.1 g/dL (11.5-15.3); Lymphocytes # 2.3 10^3/uL (0.8-4.8); Lymphocytes % 18.9 %; Mean Corpuscular HGB Conc 30.3 g/dL (30.0-36.0); Mean Corpuscular Hemoglobin 24.1 pg (28.0-34.0); Mean Corpuscular Volume 79.3 fl (81-99); Mean Platelet Volume 8.4 fL (7.4-10.4); Monocytes # 0.9 10^3/uL (0.2-0.9); Monocytes % 7.2 %; Neutrophils % 64.3 %; Nucleated Red Blood Cells % 0 %; Platelet Count 675 10^3/cmm (130-400); Red Blood Count 2.95 10^6/uL (4.1-5.3); Red Cell Distribution Width 19.5 % (12.1-15.1)
[2022-09-11 20:05] LABS: Alanine Aminotransferase 20 U/L (0-33); Albumin Level 3.1 g/dL (3.5-5.2); Alkaline Phosphatase 105 U/L (35-105); Aspartate Amino Transferase 24 U/L (0-32); Blood Urea Nitrogen 22 mg/dL (8-23); Calcium 8.7 mg/dL (8.5-10.5); Carbon Dioxide 23 mmol/L (22-29); Chloride 99 mmol/L (98-107); Globulin 4.3 g/dL (1.3-4.6); Glucose 132 mg/dL (65-115); Osmolality Calculated 283 mOsm/kg (285-295); Sodium 134 mmol/L (136-145); Total Bilirubin 0.2 mg/dL (0.15-1.2); Total Protein 7.4 g/dL (6.6-8.7)
[2022-09-11 21:48] LABS: Hematocrit 22.1 % (37.0-47.0); Hemoglobin 6.8 g/dL (11.5-15.3)
[2022-09-11 22:32] LABS: Urine Appearance Clear (CLEAR); Urine Color Yellow (Yellow); pH Urine 6.5 (5-7)
[2022-09-11 22:33] LABS: Bilirubin Urine Neg (Negative); Blood Urine Neg (Negative); Glucose Urine UA Norm (Normal); Ketones Urine Negative (Negative); Nitrate Urine Negative (Negative); Protein Urine Neg (Negative); Urobilinogen Urine Norm (Negative)
[2022-09-11 22:43] LABS: Add Urine Microscopic? YES; Leukocyte Esterase Urine Trace (Negative)
[2022-09-11 22:44] LABS: Add Urine Culture? No; Bacteria Urine TRACE /hpf; Squamous Epithelial Cell Urine 0-4 /hpf (0-5); WBC Urine 0-4 /hpf (0-5)
[2022-09-11 23:08] VITALS: BP 139/63; PULSE 88; RESP 18; TEMP 36.7; O2SAT 98
[2022-09-12] VITALS (30 sets, daily range): BP systolic 107–166; BP diastolic 54–90; PULSE 22–92; RESP 14–18; TEMP 36.3–36.9; O2SAT 92–100
[2022-09-12] MEDS: sodium chloride 0.9% 100 mL Bag 50 ML IV ×2 (03:24→06:48)
[2022-09-12 08:28] LABS: Basophils % 0.2 %; Eosinophils % 9.9 %; Lymphocytes % 19.8 %; Mean Corpuscular HGB Conc 31.6 g/dL (30.0-36.0); Mean Corpuscular Hemoglobin 25.5 pg (28.0-34.0); Mean Corpuscular Volume 80.6 fl (81-99); Monocytes # 0.9 10^3/uL (0.2-0.9); Monocytes % 8.9 %; Neutrophils # 6.13 10^3/uL (1.8-7.7); Neutrophils % 60.9 %; Nucleated Red Blood Cells % 0 %; Platelet Count 644 10^3/cmm (130-400); Red Blood Count 3.77 10^6/uL (4.1-5.3); Red Cell Distribution Width 17.6 % (12.1-15.1); White Blood Count 10.1 10^3/uL (4.0-10.0)
[2022-09-12] MEDS: lisinopril 20 mg Tablet PO (08:29)
[2022-09-12 08:49] LABS: Alanine Aminotransferase 17 U/L (0-33); Albumin Level 2.8 g/dL (3.5-5.2); Alkaline Phosphatase 106 U/L (35-105); Anion Gap 15.7 (5-19); Blood Urea Nitrogen 14 mg/dL (8-23); Calcium 8.7 mg/dL (8.5-10.5); Carbon Dioxide 23 mmol/L (22-29); Chloride 102 mmol/L (98-107); Globulin 4.2 g/dL (1.3-4.6); Glucose 95 mg/dL (65-115); Osmolality Calculated 282 mOsm/kg (285-295); Potassium 4.7 mmol/L (3.5-5.1); Sodium 136 mmol/L (136-145); Total Bilirubin 0.4 mg/dL (0.15-1.2)
--- NOTE | 2022-09-12 09:14 | PC.PHAR ---
PT STATES SHE TAKES CARE OF HER OWN MEDICATIONS-PT STATES SHE WAS TAKING 4 81MG ASPIRIN DAILY FOR 30 DAYS STATES SHE STOP TAKING AROUND 08/30/22-
--- NOTE | 2022-09-12 09:21 | PM.CONSULT ---
Providers/Reason For Consult Consulting Physician/Specialty*: Kimberly Peralta MD/ infectious disease Reason for Consult*: concern for PJI Requesting Physician: rajni Drummond MD Attending Physician: Rajni Drummond MD Primary Care Provider: Barbara Quinn MD History of Present Illness History of Present Illness Kait Simmons is a 77 year old female with medical comorbidities as listed below who is currently admitted due to concern for possible prosthetic joint infection. Patient underwent revision of a cemented left total knee arthroplasty on July 31, 2022 this year due to left severe osteoarthritis. Postprocedure she continued to have some swelling anteriorly to the knee and about 2 weeks ago started noticing a skin defect, initially a serosanguineous discharge changing to a puslike discharge. She has some redness around the site. Does not really complain of any restriction with her mobility. She was seen by Ortho as an outpatient on September 03, 2022 at which time a superficial wound culture was taken showed coag negative staph. She was started on Bactrim DS 1 tab p.o. daily for 7 days. Since starting the Bactrim patient thinks that the superior ulcer seems to be improving however the lower 1 has not had a significant change. Review of Systems General: Reports: 10 or more systems reviewed and unremarkable except in HPI and below Const: Denies: fever(s), chills or body aches Eyes: Denies: change in vision, blurry vision or photophobia ENMT: Reports: hoarseness; Denies: throat pain, enlarged tonsils, odynophagia or nasal congestion Card: Denies: chest pain, palpitations, irregular heart rhythm, edema, swelling of feet/ankles, lightheadedness, pre-syncope, dyspnea on exertion or orthopnea Resp: Denies: dyspnea, productive cough, non-productive cough, wheezing, stridor, pain on inspiration, change in phlegm color, hemoptysis or chest congestion GI: Denies: abdominal pain, nausea, vomiting, hematemesis, coffee ground emesis, dysphagia, heartburn, diarrhea, constipation, GI cramping, change in stool character, hematochezia or melena : Denies: flank pain, difficulty voiding, dysuria, urinary frequency, urinary urgency, urinary hesitancy or hematuria Musc: Denies: neck pain, back pain, extremity pain, joint swelling, joint warmth or deformity Neuro: Denies: headache(s), numbness in extremities, weakness in extremities, sensory changes, difficulty walking, frequent falls, dizziness, vertigo, behavioral changes, Slurred speech present or seizure-like activity Psych: Denies: anxiety, depression, suicidal ideation or homicidal ideation Endo: Denies: polyuria, polydipsia, tired all the time, cold intolerance or hot flashes Norbert/Lymph: Denies: easy bruising or easy bleeding Medications/Allergies Home Medications Medication Instructions Recorded Confirmed Last Taken Type lisinopril 20 mg tablet 20 mg PO QAM 12/19/21 09/12/22 1 Day Ago History ~07/29/22 cholecalciferol (vitamin D3) 10 10 mcg PO DAILY 09/12/22 09/12/22 Unknown History mcg (400 unit) capsule (Vitamin D3) magnesium oxide 400 mg PO DAILY 09/12/22 09/12/22 Unknown History multivit with 1 tab PO QAM 09/12/22 09/12/22 Unknown History afnujasg-xmex-NT-lutein 8 mg iron-400 mcg-300 mcg tablet (Centrum Silver Women) potassium gluconate 595 mg (99 mg) 595 mg PO QAM 09/12/22 09/12/22 Unknown History tablet sulfamethoxazole 800 1 tab PO BID 09/12/22 09/12/22 09/11/22 History mg-trimethoprim 160 mg tablet HAD ONE TAB LEFT vitamin B complex 1 tab PO QAM 09/12/22 09/12/22 Unknown History vitamin E 268 mg (400 unit) capsule 1 cap PO [facility] 09/12/22 09/12/22 Unknown History Allergies Allergy/AdvReac Type Severity Reaction Status Date / Time prednisolone Allergy Unknown Verified 09/11/22 14:33 prochlorperazine Allergy ALGY-Anaphy Verified 09/11/22 14:33 [From Compazine] laxis Current Medications Generic Name Dose Route Start Last Admin Trade Name Freq PRN Reason Stop Dose Admin Lisinopril 20 mg 09/12/22 09:00 09/12/22 08:29 Lisinopril 20 Mg Tablet PO 20 mg DAILY LAUREN Administration PFSH Acute PFSH: Medical History Dehiscence of wound Hypertension Surgical History Cataracts, bilateral H/O: hysterectomy History of revision of total replacement of left knee joint Date of procedure: July 30, 2022 Diagnosis: 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 Large cysts in the tibial plateau both medially and laterally. Severe degenerative osteoarthritis with varus deformity and lack of range of motion Procedure done: Revision cemented left total knee arthroplasty utilizing revision femoral and tibial components with augments and stem to the tibia Implants: The [employer] total knee system with a size 2 universal cemented triathlon tibial baseplate, a triathlon total knee cemented stem size 12 mm x 50 mm, tibial augment, half blocks, size 2 x 5 mm for medial and lateral tibia, a size 2 right posterior stabilized cemented triathlon femur with a size 2 x 10 mm posterior augment. The triathlon X3 total stabilizer plus tibial insert size 2 x 11 mm and an asymmetric patella size 29 x 9 mm History of revision of total replacement of right knee joint Date of procedure: January 15, 2022 Diagnosis: Right knee severe degenerative osteoarthritis with varus deformity and significant bone loss Post-op findings: Large bone loss particularly medial femoral condyle with cystic change and complete obliteration of bone posteriorly. Severe degenerative osteoarthritis with valgus deformity and lack of range of motion. Procedure done: Revision cemented right total knee arthroplasty utilizing revision femoral and tibial components with augments Implants: The [employer] total knee system with a size 2 universal cemented triathlon tibial baseplate, a triathlon total knee cemented stem size 12 mm x 50 mm, tibial augment, half blocks, size 2 x 5 mm for medial and lateral tibia, size 2 right posterior stabilized cemented triathlon femur with a size 2 x 10 mm posterior augment. The triathlon X3 total stabilizer plus tibial insert size 2 x 11 mm and an asymmetric patella size 29 x 9 mm Social History Smoking and tobacco status: never smoked Second hand smoke exposure: No Smoking risk assessment/counseling performed?: No Alcohol intake: never Substance/Drug Use: never Adopted: No Caregiver/support person: Yes Lives independently: No Household members: spouse Housing: House Marital status: Number of children: 0 Number of grandchildren: 0 Highest education level completed: High School Graduate service: No Current occupational status: retired Current occupational exposures/hazards: No Pets and animals: No Sexually active: Yes Do you think of yourself as: Straight/Heterosexual Current gender identity: Female Special abilio needs: No Agree to transfusion: Yes Vitals/I&O/Wt Last Vital Signs Temp 98.1 F 09/12/22 08:00 Pulse 86 09/12/22 08:00 Resp 15 09/12/22 08:00 BP 156/64 09/12/22 08:00 Pulse Ox 99 09/12/22 08:00 O2 Del Method Room Air 09/12/22 08:00 09/11/22 09/12/22 09/12/22 22:59 06:59 14:59 Intake Total 360 / 360 700 / 1060 Balance 360 / 360 700 / 1060 Weight last 48 hrs Weight 52.191 kg Physical Exam Narrative: General: No acute distress, AO x3 HEENT: PERRLA, pupils bilaterally equal and reactive, pallors not present Chest: Normal vesicular breath sounds, no added sounds, equal good air entry bilaterally CVS: S1-S2 regular, no murmurs, no tachycardia, no gallops, no rubs Abdomen: Soft, nontender, no organomegaly, bowel sounds present Neuro: No focal deficits, no facial deformity, AO x3, power 5/5 in all limbs Extremities: Left knee with dressing in place, taken down for examination. Noted to have 2 ulcerations 1 superior to the knee and one just inferior. Lower 1 measures approximately 1 x 1 x 0.3 cm, puslike discharge. Similarly smaller sized ulcer more superiorly. Data 09/12/22 08:18 09/12/22 08:18 A&P Assessment and plan (1) Postoperative wound dehiscence: Patient underwent left knee arthroplasty on July 31, 2022 with postop course complicated by wound dehiscence. She has had puslike discharge from her wounds, without significant change on Bactrim as an outpatient. She is planned to go to the operating room today to a certain extent of infection. Should the joint capsule be involved, patient will likely need an extended 6-week course of IV antibiotic depending on cultures. Patient is anxious to return home and may want to leave the hospital over the next day after her surgery. Should cultures not be available prior to discharge and joint infection is suspected would likely pick empiric vancomycin while awaiting finalization of cultures. When antibiotics would then be adjusted as an outpatient. Ideally recommend patient to stay until cultures are available. Follow Outpatient wound cultures are showing staph intermedius, confirmed that this is a wound swab and not a joint aspirate. Unlikely to be very meaningful in this setting. will follow with OR findings Consult Attestations Medical Necessity Statement: per admitting Coding Level of Care Code Acute Code for Chg Fwd Diagnoses Postoperative wound dehiscence T81.31XA
[2022-09-12 09:22] LABS: Hemoglobin 9.6 g/dL (11.5-15.3)
[2022-09-12 09:23] LABS: Hematocrit 30.4 % (37.0-47.0)
[2022-09-12 09:34] LABS: Aspartate Amino Transferase 23 U/L (0-32)
--- NOTE | 2022-09-12 09:57 | P.CONIM_ITS ---
Providers/Reason For Consult Consulting Physician/Specialty*: Chris Mary MD, hospitalist Reason for Consult*: Anemia Requesting Physician: Dr. Drummond Attending Physician: Rajni Drummond MD Primary Care Provider: Barbara Quinn MD History of Present Illness History of Present Illness Kait Simmons is a 77 year old female admitted under the orthopedic service, directly from clinic, after dehiscence of wound from left knee revision was noted. Patient was on Bactrim prior to coming into the hospital. She states it has been giving her some difficulty over the last 2 weeks. No fever at home. Infectious disease will be seeing her regarding this condition. I have been consulted in regards to her anemia. Patient reports she was first informed she had anemia back in May. This was caught an orthopedic appointment. She ultimately got 3 units of blood transfused at [facility]. She did not have any investigation in regards to why she was anemic according to the patient. She denies any blood in her stool or black or tarry stools. She has had no issues with heartburn or dysphagia. She has had no nosebleeds and has no family history of anemias. She reports her previous hemoglobins with her primary care provider were around 12. She does report that in May she was having some stomach issues secondary to medication, presumed anti- inflammatories. She denies any shortness of breath, dizziness, or fatigue currently. On this admission she was found to have a hemoglobin of 6.8 and was transfused 2 units of packed red blood cells with subsequent hemoglobin of 9.6 Review of Systems General: Reports: 10 or more systems reviewed and unremarkable except in HPI and below Card: Denies: chest pain Resp: Denies: dyspnea GI: Denies: abdominal pain, nausea, vomiting, hematochezia or melena Medications/Allergies Home Medications Medication Instructions Recorded Confirmed Last Taken Type lisinopril 20 mg tablet 20 mg PO QAM 12/19/21 09/12/22 1 Day Ago History ~07/29/22 cholecalciferol (vitamin D3) 10 10 mcg PO DAILY 09/12/22 09/12/22 Unknown History mcg (400 unit) capsule (Vitamin D3) magnesium oxide 400 mg PO DAILY 09/12/22 09/12/22 Unknown History multivit with 1 tab PO QAM 09/12/22 09/12/22 Unknown History hnrgjtwv-nfse-UG-lutein 8 mg iron-400 mcg-300 mcg tablet (Centrum Silver Women) potassium gluconate 595 mg (99 mg) 595 mg PO QAM 09/12/22 09/12/22 Unknown History tablet sulfamethoxazole 800 1 tab PO BID 09/12/22 09/12/22 09/11/22 History mg-trimethoprim 160 mg tablet HAD ONE TAB LEFT vitamin B complex 1 tab PO QAM 09/12/22 09/12/22 Unknown History vitamin E 268 mg (400 unit) capsule 1 cap PO QAM 09/12/22 09/12/22 Unknown History Allergies Allergy/AdvReac Type Severity Reaction Status Date / Time prednisolone Allergy Unknown Verified 09/11/22 14:33 prochlorperazine Allergy ALGY-Anaphy Verified 09/11/22 14:33 [From Compazine] laxis Current Medications Generic Name Dose Route Start Last Admin Trade Name Freq PRN Reason Stop Dose Admin Lisinopril 20 mg 09/12/22 09:00 09/12/22 08:29 Lisinopril 20 Mg Tablet PO 20 mg DAILY LAUREN Administration PFSH Acute PFSH: Medical History (Updated 09/12/22 @ 10:04 by Chris Mary MD) Dehiscence of wound Hypertension Surgical History (Updated 09/12/22 @ 10:01 by Chris Mary MD) Cataracts, bilateral H/O: hysterectomy History of revision of total replacement of left knee joint Date of procedure: July 30, 2022 Diagnosis: 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 Large cysts in the tibial plateau both medially and laterally. Severe degenerative osteoarthritis with varus deformity and lack of range of motion Procedure done: Revision cemented left total knee arthroplasty utilizing revision femoral and tibial components with augments and stem to the tibia Implants: [employer] total knee system with a size 2 universal cemented triathlon tibial baseplate, a triathlon total knee cemented stem size 12 mm x 50 mm, tibial augment, half blocks, size 2 x 5 mm for medial and lateral tibia, a size 2 right posterior stabilized cemented triathlon femur with a size 2 x 10 mm posterior augment. The triathlon X3 total stabilizer plus tibial insert size 2 x 11 mm and an asymmetric patella size 29 x 9 mm History of revision of total replacement of right knee joint Date of procedure: January 15, 2022 Diagnosis: Right knee severe degenerative osteoarthritis with varus deformity and significant bone loss Post-op findings: Large bone loss particularly medial femoral condyle with cystic change and complete obliteration of bone posteriorly. Severe degenerative osteoarthritis with valgus deformity and lack of range of mo tion. Procedure done: Revision cemented right total knee arthroplasty utilizing revision femoral and tibial components with augments Implants: [employer] total knee system with a size 2 universal cemented triathlon tibial baseplate, a triathlon total knee cemented stem size 12 mm x 50 mm, tibial augment, half blocks, size 2 x 5 mm for medial and lateral tibia, size 2 right posterior stabilized cemented triathlon femur with a size 2 x 10 mm posterior augment. The triathlon X3 total stabilizer plus tibial insert size 2 x 11 mm and an asymmetric patella size 29 x 9 mm Social History Smoking and tobacco status: never smoked Second hand smoke exposure: No Smoking risk assessment/counseling performed?: No Alcohol intake: never Substance/Drug Use: never Adopted: No Caregiver/support person: Yes Lives independently: No Household members: spouse Housing: House Marital status: Number of children: 0 Number of grandchildren: 0 Highest education level completed: High School Graduate service: No Current occupational status: retired Current occupational exposures/hazards: No Pets and animals: No Sexually active: Yes Do you think of yourself as: Straight/Heterosexual Current gender identity: Female Special abilio needs: No Agree to transfusion: Yes Other PFSH information: Supplemental PFSH Information: Denies any significant family history, and no family history of colon cancer. S he reports she has never had a colonoscopy. Vitals/I&O/Wt Last Vital Signs Temp 98.1 F 09/12/22 08:00 Pulse 86 09/12/22 08:00 Resp 15 09/12/22 08:00 BP 156/64 09/12/22 08:00 Pulse Ox 99 09/12/22 08:00 O2 Del Method Room Air 09/12/22 08:00 09/11/22 09/12/22 09/12/22 22:59 06:59 14:59 Intake Total 360 / 360 700 / 1060 Balance 360 / 360 700 / 1060 Weight last 48 hrs Weight 52.191 kg Physical Exam Narrative: General exam is no distress HEENT: Atraumatic normocephalic. Oropharynx clear Neck is supple, no lymphadenopathy thyromegaly Cardiovascular regular rate and rhythm, no murmur Lungs clear no wheezing or crackles Abdomen is soft nontender positive bowel sounds. No obvious organomegaly exam is deferred Extremities some edema, erythema, and a bandage with some drainage left knee. Distal refill is intact. Skin see findings above Neuro no obvious focal deficits Data 09/12/22 08:18 09/12/22 08:18 Other Labs: LFTs are normal including AST of 23 I have ordered iron studies, stool Hemoccult, B12 and folate Venous duplex of lower extremity has been performed and pending A&P Assessment and plan (1) Anemia: Patient has significant anemia, assumed acute on chronic. This has been going on for a while, at least as far back as January 2022. I think this is most likely secondary to iron deficiency anemia. Appropriate lab has been ordered but also to include B12 and folate. Stool Hemoccult ordered I have no concerns that she has hemolysis considering her AST is normal, and the length of time she has been anemic Certainly since she has not had a screening colonoscopy, or GI evaluation GI blood loss would be the most likely cause. Protonix 40 mg IV twice daily to be converted to p.o. when she is able to take by mouth The transfusion that was given was appropriate CBC tomorrow Cofactors that could worsen anemia or ongoing infection/other systemic illness. It is highly likely she will need additional outpatient investigation with EGD and colonoscopy Avoid any anticoagulation, antiplatelets currently Plan Left knee wound dehiscence with question of infection. Defer to ID History of hypertension Other medical problems as outlined in past medical history Consult Attestations Medical Necessity Statement: As per primary Diagnoses Anemia D64.9 Time Spent (min) 42
[2022-09-12 10:11] LABS: Ferritin 95 ng/mL (15-150); Total Iron Binding Capacity 276 mcg/dl; Unsaturated Iron Binding 262 ug/dL (112-347)
[2022-09-12 10:18] LABS: C Reactive Protein 24.6 mg/L (0.0-4.9)
[2022-09-12 10:25] LABS: Vitamin B12 1160 pg/mL (232-1245)
[2022-09-12 10:33] LABS: Erythrocyte Sedimentation Rate 85 mm/hr (0-15)
[2022-09-12 10:39] LABS: Folate Level > 20.0 ng/mL (4.8-37.3); Iron 14 ug/dL (37-145)
[2022-09-12] MEDS: pantoprazole 40 mg SDV IVP ×2 (11:03→22:09)
[2022-09-12] MEDS: sodium chloride 0.9% 1,000 ML 30 ML IV (11:35)
[2022-09-12] MEDS: acetaminophen 1,000 MG/100 ML PIGGYBACK 400 MG IV (11:36)
[2022-09-12] MEDS: CELEcoxib 200 mg Capsule 400 MG PO (11:37)
[2022-09-12] MEDS: gabapentin 300 mg Capsule PO (11:37)
--- NOTE | 2022-09-12 12:08 | ANES.PREANE2 ---
Pre-Anesthetic Assessment Height/Weight: Height 1.57 m Weight 52.191 kg Temp Pulse Resp BP Pulse Ox O2 Del Method 97.8 F 89 18 158/70 98 Room Air 09/12/22 11:30 09/12/22 11:30 09/12/22 11:30 09/12/22 11:30 09/12/22 11:30 09/12/22 11:30 Operation Date: 09/12/22 12:00 Proposed Procedures p Irrigation and Debridement of the left knee with repair of wound dehiscence(Left) - Rajni Drummond MD Familial anesthetic complications: none Was Beta Juliana taken within 24 hours: N/A Was Clonidine taken within 24 hours: N/A Last intake: Intake Last Liquid Date 09/11/22 Last Solid Date 09/11/22 Social No alcohol and No tobacco Exam alert, oriented x 3, clear to auscultation bilaterally and regular rate & rhythm Airway Submandibular: within normal limits Cervical ROM: within normal limits Mallampati: Class II Dentition: chipped Comments: Comments: Missing CV/HEM Anemia (recent transfusion) and Hypertension [facility] Osteoarthritis/DJD Anesthetic Plan ASA status: 3 Anesthesia: General Medications/Allergies Home Medications Medication Instructions Recorded Confirmed Last Taken Type lisinopril 20 mg tablet 20 mg PO QAM 12/19/21 09/12/22 1 Day Ago History ~07/29/22 cholecalciferol (vitamin D3) 10 10 mcg PO DAILY 09/12/22 09/12/22 Unknown History mcg (400 unit) capsule (Vitamin D3) magnesium oxide 400 mg PO DAILY 09/12/22 09/12/22 Unknown History multivit with 1 tab PO QAM 09/12/22 09/12/22 Unknown History obwxnozo-iwnl-BV-lutein 8 mg iron-400 mcg-300 mcg tablet (Centrum Silver Women) potassium gluconate 595 mg (99 mg) 595 mg PO QAM 09/12/22 09/12/22 Unknown History tablet sulfamethoxazole 800 1 tab PO BID 09/12/22 09/12/22 09/11/22 History mg-trimethoprim 160 mg tablet HAD ONE TAB LEFT vitamin B complex 1 tab PO QAM 09/12/22 09/12/22 Unknown History vitamin E 268 mg (400 unit) capsule 1 cap PO QAM 09/12/22 09/12/22 Unknown History Allergies Allergy/AdvReac Type Severity Reaction Status Date / Time prednisolone Allergy Unknown Verified 09/11/22 14:33 prochlorperazine Allergy ALGY-Anaphy Verified 09/11/22 14:33 [From Compazine] laxis Current Medications Generic Name Dose Route Start Last Admin Trade Name Freq PRN Reason Stop Dose Admin Sodium Chloride 1,000 mls @ 30 mls/hr 09/12/22 11:30 09/12/22 11:35 Sodium Chloride 0.9% IV 09/13/22 11:29 30 mls/hr .Q24H LAUREN Administration Lisinopril 20 mg 09/12/22 09:00 09/12/22 08:29 Lisinopril 20 Mg Tablet PO 20 mg DAILY LAUREN Administration Pantoprazole Sodium 40 mg 09/12/22 09:30 09/12/22 11:03 Pantoprazole 40 Mg Sdv IVP 40 mg Q12H LAUREN Administration PFSH Anesthesia Medical History (Updated 09/12/22 @ 10:04 by Chris Mary MD) Dehiscence of wound Hypertension Surgical History (Updated 09/12/22 @ 10:01 by Chris Mary MD) Cataracts, bilateral H/O: hysterectomy History of revision of total replacement of left knee joint Date of procedure: July 30, 2022 Diagnosis: 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 Large cysts in the tibial plateau both medially and laterally. Severe degenerative osteoarthritis with varus deformity and lack of range of motion Procedure done: Revision cemented left total knee arthroplasty utilizing revision femoral and tibial components with augments and stem to the tibia Implants: The Appota total knee system with a size 2 universal cemented triathlon tibial baseplate, a triathlon total knee cemented stem size 12 mm x 50 mm, tibial augment, half blocks, size 2 x 5 mm for medial and lateral tibia, a size 2 right posterior stabilized cemented triathlon femur with a size 2 x 10 mm posterior augment. The triathlon X3 total stabilizer plus tibial insert size 2 x 11 mm and an asymmetric patella size 29 x 9 mm History of revision of total replacement of right knee joint Date of procedure: January 15, 2022 Diagnosis: Right knee severe degenerative osteoarthritis with varus deformity and significant bone loss Post-op findings: Large bone loss particularly medial femoral condyle with cystic change and complete obliteration of bone posteriorly. Severe degenerative osteoarthritis with valgus deformity and lack of range of motion. Procedure done: Revision cemented right total knee arthroplasty utilizing revision femoral and tibial components with augments Implants: The Appota total knee system with a size 2 universal cemented triathlon tibial baseplate, a triathlon total knee cemented stem size 12 mm x 50 mm, tibial augment, half blocks, size 2 x 5 mm for medial and lateral tibia, size 2 right posterior stabilized cemented triathlon femur with a size 2 x 10 mm posterior augment. The triathlon X3 total stabilizer plus tibial insert size 2 x 11 mm and an asymmetric patella size 29 x 9 mm Social History Smoking and tobacco status: never smoked Second hand smoke exposure: No Smoking risk assessment/counseling performed?: No Alcohol intake: never Substance/Drug Use: never Adopted: No Caregiver/support person: Yes Lives independently: No Household members: spouse Housing: House Marital status: Number of children: 0 Number of grandchildren: 0 Highest education level completed: High School Graduate service: No Current occupational status: retired Current occupational exposures/hazards: No Pets and animals: No Sexually active: Yes Do you think of yourself as: Straight/Heterosexual Current gender identity: Female Special abilio needs: No Agree to transfusion: Yes [facility] Denies any significant family history, and no family history of colon cancer. She reports she has never had a colonoscopy. Data Anesthesia 09/12/22 08:18 09/12/22 08:18 Short CBC 09/11/22 09/11/22 09/12/22 Range/Units 19:25 21:31 08:18 WBC 12.0 H 10.1 H (4.0-10.0) 10^3/uL Hgb 7.1 L 6.8 L 9.6 L D (11.5-15.3) g/dL Hct 23.4 L 22.1 L 30.4 L D (37.0-47.0) % MCV 79.3 L 80.6 L (81-99) fl Plt Count 675 H 644 H (130-400) 10^3/cmm Neut % (Auto) 64.3 60.9 % Neut # (Auto) 7.70 6.13 (1.8-7.7) 10^3/uL BMP 09/11/22 09/12/22 19:25 08:18 Sodium 134 L 136 Potassium 5.0 4.7 Chloride 99 102 Carbon Dioxide 23 23 BUN 22 14 Creatinine 0.9 0.9 Glucose 132 H 95 Calcium 8.7 8.7 Liver Function 09/11/22 09/12/22 Range/Units 19:25 08:18 Total Bilirubin 0.2 0.4 (0.15-1.2) mg/dL AST 24 23 (0-32) U/L ALT 20 17 (0-33) U/L Alkaline Phosphatase 105 106 H (35-105) U/L Albumin 3.1 L 2.8 L (3.5-5.2) g/dL Urine 09/11/22 Range/Units 22:24 Urine Color Yellow (Yellow) Urine Appearance Clear (CLEAR) Urine pH 6.5 (5-7) Ur Specific Perrin 1.010 (1.005-1.030) Urine Protein Neg (Negative) Urine Glucose (UA) Norm (Normal) Urine Ketones Negative (Negative) Urine Nitrate Negative (Negative) Urine Bilirubin Neg (Negative) Ur Leukocyte Esterase Trace H (Negative) Urine RBC None (0-2) /hpf Urine WBC 0-4 H (0-5) /hpf Blood Bank 09/11/22 22:19 Blood Type A Positive Rho(D) Type Positive Antibody Screen Negative Coags 09/12/22 09/12/22 08:18 08:18 ESR 85 H C-Reactive Protein 24.6 H Cardiac Studies: No Data to Display
--- NOTE | 2022-09-12 12:23 | W.PM.OPSUD ---
Surgery/Procedure H&P Update DATE OF PROCEDURE: September 12, 2022 DATE H&P PERFORMED: 09/11/22 H&P UPDATE INFORMATION: I have reviewed H&P completed within last 30 days, I have examined patient prior to procedure, No changes to prior documentation and H&P is in [facility] EMR on date indicated PLANNED PROCEDURE: Operation Date: 09/12/22 12:00 Proposed Procedures p Irrigation and Debridement of the left knee with repair of wound dehiscence(Left) - Rajni Drummond MD Related Problem List Diagnoses (1) History of revision of total replacement of left knee joint: (2) Left leg swelling: (3) Postoperative wound dehiscence: (4) Anemia:
[2022-09-12] MEDS: ceFAZolin 2,000 MG in sodium chloride 0.9% (plus) 50 ML 100 MG IV (13:15)
[2022-09-12] MEDS: vancomycin 1,000 MG in sodium chloride 0.9% 250 ML 250 MG IV (13:21)
[2022-09-12] MEDS: ceFAZolin 1,000 mg SDV 3000 MG IRRIGATION (13:23)
[2022-09-12] MEDS: vancomycin 1,000 MG SDV 1000 MG XX (13:29)
--- NOTE | 2022-09-12 16:16 | PM.OP ---
Operative Report Date of procedure: September 12, 2022 Pre-op diagnosis: Left knee wound dehiscence following total knee arthroplasty Post-op diagnosis: Left knee wound dehiscence following total knee arthroplasty with intra-articular involvement and septic joint Post-op findings: Intra-articular involvement with septic joint and infectious synovitis left knee Procedure done: Irrigation and debridement left total knee arthroplasty wound dehiscence with revision of incision, medial knee joint arthrotomy with complete synovectomy, and revision of tibial component insert with removal of polyethylene insert and replacement Implants: The Lon triathlon X3 total stabilizer + tibial insert size 2 x 9 mm Specimens removed/disposition: Joint fluid and tissue sent for aerobic and anaerobic culture and Gram stain Surgeon: Rajni Drummond General Office Worker: [facility] operating room technicians Anesthesia: General (Per LMA, ASA 3) Estimated blood loss (mL): 20 Tourniquet time (min): 90 (At 250 mmHg) IV fluids (mL): 900 Urine output (mL): 400 Complications: None Findings: Significant prepatellar infectious bursitis with infectious synovitis intra-articularly and involvement of the knee joint. Condition: stable Disposition: PACU (Then return to floor for postoperative treatment, pain management, and antibiotic therapies.) Brief History: Kait Simmons is a very pleasant 77-year-old woman who underwent left total knee arthroplasty on July 30, 2022. Earlier in the year, she had undergone right total knee arthroplasty uneventfully. Both of these surgical procedures required revision components secondary to severe deformity and bone loss. The patient presented to my clinic yesterday with a an area of dehiscence anteriorly over the patella and another area superiorly within her incision. Decision was made to admit her to the hospital for stabilization prior to surgical intervention. Risks and complications of surgery were discussed with her. She was advised that we will be doing an irrigation and debridement with possible knee arthrotomy and polyethylene exchange. Patient understood the risks and complications and agreed to proceed with the surgical intervention. The evening prior to surgery, she was found to be anemic with a hemoglobin of 6.8. This was treated with transfusion. Patient also had a duplex ultrasound to assure she did not have a DVT, and this was negative. Hospitalist consultation was obtained secondary to the anemia and infectious disease consult was obtained secondary to the patient's dehiscence. Both of these specialties saw the patient prior to surgical intervention. Procedure: The patient was brought to the operating theater, and after undergoing adequate general anesthesia per LMA, ASA 3, the left lower extremity was prepped with Betadine and draped in usual fashion following placement of a tourniquet high on the leg. The leg was then draped free. Following prepping and draping, the tourniquet was elevated to 250 mmHg for a total tourniquet time of 90 minutes.? Prior to elevation of the tourniquet, but following exposure of the site of surgery, a surgical pause was performed. At the time of the surgical pause, we confirmed the site and side of surgery. We confirmed availability of antibiotics to be given following cultures. The availability of equipment was confirmed, and the patient's identity was verbalized as well. Following the surgical pause, the patient's previous incision was entered. Skin and subcutaneous tissue debridement was accomplished in the area of the wound dehiscences. There was noted to be fluid which was somewhat cloudy within the prepatellar bursal area, and the bursal tissues were quite thickened consistent with infectious bursitis. The area was debrided with a combination of sharp debridement and use of a rongeur and curettes. Palpation along the skin incision identified an area of connection to the joint which was in the superior third of the incision. There was noted to be cloudy fluid within the knee joint consistent with septic arthritis, and therefore, a median parapatellar arthrotomy was accomplished essentially in the area of the patient's previous incision. Tissue was obtained for culture and Gram stain as well as fluid. Intraoperative antibiotics were then given including 2 g of Ancef and 1 g of vancomycin. Following this, aggressive synovectomy was accomplished. The prosthesis was noted to have no evidence of loosening. Polyethylene was removed uneventfully which allowed better access to the posterior aspect of the knee joint where further debridement was accomplished. The wound was then irrigated with 6 L of normal saline plain and an additional 3 L with 3 g of Ancef. Following this irrigation and extensive debridement, a new polyethylene insert was inserted into position. This insert was the same size, that being a size 2 x 9 mm total stabilizer insert, and was inserted uneventfully. The knee was placed through range of motion and found to be stable. Closure of the fascial tissues was then accomplished with #1 PDS along the median parapatellar incision. There was noted to be tightness to the skin with attempted closure, but the defect was not large enough to place a wound VAC. We were able to mobilize soft tissue enough to obtain closure of the soft tissue over the patella. In this manner, primary closure was accomplished with the #1 PDS in the fascial tissues and 2-0 PDS in the subcutaneous tissues. This was followed by skin alix and Silverlon dressing. This dressing was then covered with 2 ABDs and a sterile soft roll with an Justen wrap. Of note, the tourniquet was released at 90 minutes. The patient was returned to recovery room in satisfactory condition and will be discharged to the floor for further evaluation of appropriate IV antibiotic therapies. Upon the recommendation of Dr. Peralta, with her infectious disease expertise, the patient was started on vancomycin awaiting formal cultures. Patient will be discharged to the floor for postoperative rehabilitation, pain management, and appropriate antibiotic therapies. Related Problem List Diagnoses (1) Postoperative wound dehiscence: (2) History of revision of total replacement of left knee joint: (3) Osteoarthritis of left knee:
--- NOTE | 2022-09-12 16:35 | ANE.PACU2 ---
Inpatient post-anesthesia follow up: Airway intact: Yes Vital signs: Temperature 97.3 F Pulse Rate 80 Respiratory Rate 15 Blood Pressure 139/59 Pulse Oximetry 95 Oxygen Delivery Me thod Room Air Oxygen Flow Rate 6 Fraction of Inspir ed Oxygen Hydration adequate: Yes Nausea and vomiting: No Pain level: 2 Mental status: Baseline
--- NOTE | 2022-09-12 16:46 | PC.PHAR ---
Patient: Floor: Age: 77 yo Serum creatinine: 0.9 mg/dL Height: 61.8 Inches Weight (kg): 52 IBW (kg): 49.64 Dosing wt(kg): 52 Estimated Creatinine clearance (ml/min): 41.7 CRCL method: Cockcroft and Gault using ibw(default). Drug selected: Vancomycin Loading dose (mg): Vd (liters): 36.4 (factor used: 0.7 L/kg) Martin (hr-1): 0.039 Half life (hrs): 17.77 CLvanco=?? 1.420 L/hr Recommended dose: 1000 mg Interval: 24 hrs Infusion time (hrs): 1 Predicted peak (mcg/mL): 44.3 Predicted trough (mcg/mL): 18.07 Total body weight is being used for vancomycin dosing. Recommendations: Give Vancomycin 1000 mg q 24 hrs with an expected Cpeak of 44.3 mcg/ml and an expected Ctrough of 18.07 mcg/ml AUC 0-24 /JAMIE Data: JAMIE 0.5 mcg/mL:?? AUC/JAMIE:? 1408.5 JAMIE 1.0 mcg/mL:?? AUC/JAMIE:? 704.2 --------- JAMIE 1.5 mcg/mL:?? AUC/JAMIE:? 469.5 JAMIE 2.0 mcg/mL:?? AUC/JAMIE:? 352.1 Renal dosing of other antibiotics (review renal dosing of other medications and list guidelines here): Thank you for the consult, will continue to follow. Signature: Herman MartinezD
[2022-09-12] MEDS: iron sucrose 200 MG in sodium chloride 0.9% (100 ml) 100 ML 220 MG IV (17:26)
[2022-09-13 03:44] VITALS: BP 102/56; PULSE 84; RESP 17; TEMP 36.9; O2SAT 94
[2022-09-13 07:08] LABS: Basophils % 0.3 %; Eosinophils # 0.3 10^3/uL (0.0-0.8); Eosinophils % 3.1 %; Hematocrit 30.7 % (37.0-47.0); Hemoglobin 9.5 g/dL (11.5-15.3); Lymphocytes # 1.3 10^3/uL (0.8-4.8); Lymphocytes % 12.4 %; Mean Corpuscular HGB Conc 30.9 g/dL (30.0-36.0); Mean Corpuscular Hemoglobin 25.6 pg (28.0-34.0); Mean Corpuscular Volume 82.7 fl (81-99); Mean Platelet Volume 8.4 fL (7.4-10.4); Monocytes # 0.8 10^3/uL (0.2-0.9); Monocytes % 7.4 %; Neutrophils # 8.22 10^3/uL (1.8-7.7); Neutrophils % 76.3 %; Nucleated Red Blood Cells % 0 %; Platelet Count 649 10^3/cmm (130-400); Red Blood Count 3.71 10^6/uL (4.1-5.3); Red Cell Distribution Width 18.1 % (12.1-15.1); White Blood Count 10.8 10^3/uL (4.0-10.0)
[2022-09-13 07:18] LABS: Anion Gap 15.6 (5-19); Blood Urea Nitrogen 12 mg/dL (8-23); Calcium 8.2 mg/dL (8.5-10.5); Carbon Dioxide 22 mmol/L (22-29); Chloride 104 mmol/L (98-107); Glucose 136 mg/dL (65-115); Osmolality Calculated 286 mOsm/kg (285-295); Potassium 4.6 mmol/L (3.5-5.1); Sodium 137 mmol/L (136-145)
[2022-09-13 08:00] VITALS: BP 124/53; PULSE 85; RESP 16; TEMP 37.1; O2SAT 95
[2022-09-13] MEDS: aspirin 325 mg EC Tablet PO (08:33)
[2022-09-13] MEDS: lisinopril 20 mg Tablet PO (08:33)
[2022-09-13] MEDS: iron sucrose 200 MG in sodium chloride 0.9% (100 ml) 100 ML 220 MG IV (08:34)
--- NOTE | 2022-09-13 08:43 | P.PN_ITS ---
Subjective Subjective: Kait has a lot of questions. She is worried about the infection, what a PICC line is, how long she may need to be treated. I discussed all of this with her in detail. Overall her pain is under control. Medications: Reviewed: Yes Vitals/I&O/Wt Last Vital Signs Temp 98.8 F 09/13/22 08:00 Pulse 85 09/13/22 08:00 Resp 16 09/13/22 08:00 BP 124/53 09/13/22 08:00 Pulse Ox 95 09/13/22 08:00 O2 Del Method Room Air 09/13/22 03:44 O2 Flow Rate 6 09/12/22 15:26 09/12/22 09/13/22 09/13/22 22:59 06:59 14:59 Intake Total 606 / 756 Output Total 1520 / 1520 400 / 1920 Balance -914 / -764 -400 / -1164 Weight last 48 hrs Weight 52.191 kg Physical Exam Narrative: General exam is no distress HEENT: Atraumatic normocephalic. Oropharynx clear Neck is supple, no lymphadenopathy thyromegaly Cardiovascular regular rate and rhythm, no murmur Lungs clear no wheezing or crackles Abdomen is soft nontender positive bowel sounds. No obvious organomegaly exam is deferred Extremities bandage present left knee. Distal refill is intact. Urinary Catheter Management: Aparicio Latex: Cath Placed During This Visit: yes, but has since been removed by the nurse Reason for Continuing Indwelling Catheter: Decision to DC Catheter Urinary Catheter Date of Insertion: 09/12/22 Urinary Catheter Time of Insertion: 12:50 Date Urinary Catheter Removed: 09/13/22 Time Urinary Catheter Discontinued: 06:15 Data 09/13/22 06:34 09/13/22 06:45 Micro: Microbiology 09/12/22 11:05 Occult Blood (FIT) - Final Stool - Stool Aspirate 09/12/22 13:14 Gram Stain - Final Other Source 09/12/22 13:14 Gram Stain - Final Knee - #1 A&P Assessment and plan (1) Postoperative wound dehiscence: Patient underwent left knee arthroplasty on July 31, 2022 with postop course complicated by wound dehiscence. She is postoperative day #1 status post explantation. The infection did involve the joint. Infectious diseases seen the patient, and vancomycin has been initiated. Cultures are pending. Defer course of treatment to them. Note that a PICC line has been ordered. will follow with OR findings (2) Anemia: Patient has significant anemia, assumed acute on chronic. This has been going on for a while, at least as far back as January 2022. I think this is most likely secondary to iron deficiency anemia. I have confirmed this with laboratory. Stool Hemoccult is negative. I have no concerns that she has hemolysis considering her AST is normal, and the length of time she has been anemic Certainly since she has not had a screening colonoscopy, or GI evaluation GI blood loss would be the most likely cause. Protonix 40 mg twice daily Note that she was transfused 2 units during this hospitalization Continue to follow CBC daily Cofactors that could worsen anemia or ongoing infection/other systemic illness. It is highly likely she will need additional outpatient investigation with EGD and colonoscopy Avoid any anticoagulation, antiplatelets currently Iron sucrose infusion was given September 12, and I will repeat this today September 13. If still in the hospital September 14 it may be useful to give her third infusion. Plan History of hypertension Other medical problems as outlined in past medical history Attestations Medical Necessity Statement*: As per primary Diagnoses Postoperative wound dehiscence T81.31XA Anemia D64.9 Time Spent (min) 35
[2022-09-13] MEDS: pantoprazole DR 40 mg Tablet PO ×2 (10:11→17:44)
[2022-09-13 11:36] VITALS: BP 123/49; PULSE 80; RESP 16; TEMP 37; O2SAT 96
--- NOTE | 2022-09-13 12:55 | XR_ITS ---
WS: [id number] PORTABLE CHEST HISTORY: Post PICC insertion COMPARISON: None available. RIGHT PICC line insertion with tip in the distal SVC. No pneumonia. No pleural effusion or pneumothorax. Cardiac size: Normal. Mediastinum/Aorta: Mild atherosclerosis aorta. Severe degenerative changes at the glenohumeral joints. High riding humeral heads. XR/XR chest 1V portable [id number] IMPRESSION: Satisfactory positioning of RIGHT PICC line.
--- NOTE | 2022-09-13 14:00 | PC.NURSE ---
Single lumen PICC placed to right basilic vein without difficulty. Informed consent obtained from patient prior to procedure. Trimmed length 40 cm with 0 cm external length noted. Mid-arm circumference measured 10 cm from right AC 22 cm. EBL < 10 mL. Chest xray shows tip in distal SVC, ready to use. Dressing due to be changed tomorrow, 09/14/22. Report given to charge nurseAlvino.
--- NOTE | 2022-09-13 14:46 | P.PN_ITS ---
Subjective Subjective: Normal continues to be quite concerned and have significant questions about the events of the last couple of days. This has been discussed with her at length. I have also discussed this with her . At this point, they just seem overwhelmed by the idea. We will continue to educate. Medications: Reviewed: Yes Vitals/I&O/Wt Last Vital Signs Temp 98.6 F 09/13/22 11:36 Pulse 80 09/13/22 11:36 Resp 16 09/13/22 11:36 BP 123/49 09/13/22 11:36 Pulse Ox 96 09/13/22 11:36 O2 Del Method Room Air 09/13/22 03:44 O2 Flow Rate 6 09/12/22 15:26 09/12/22 09/13/22 09/13/22 22:59 06:59 14:59 Intake Total 606 / 756 350 / 350 Output Total 1520 / 1520 400 / 1920 Balance -914 / -764 -400 / -1164 350 / 350 Weight last 48 hrs Weight 115 lb 1 oz Physical Exam Const: COMMON NORMALS: no acute distress, average body habitus, patient oriented x3 and alert GENERAL APPEARANCE: cooperative and comfortable ORIENTATION/CONSCIOUSNESS: Yes awake HENMT: COMMON NORMALS: normocephalic and atraumatic HEAD & SCALP: normocephalic and atraumatic Eye: GENERAL EYE: appearance normal, both eyes and all related structures Chest: COMMONS NORMALS: normal inspection of the chest Resp: COMMON NORMALS: normal respiratory effort EFFORT & INSPECTION: Yes able to speak in complete sentences and Yes symmetric chest movement Extremity: LEFT LOWER EXTREMITY: Yes knee joint (Brace remains in place and is not removed today) Left knee: Yes neurovascular exam (Intact distally) Neuro: COMMON NORMALS: patient oriented x3 SENSORIUM/ORIENTATION: Yes alert Psych: COMMON NORMALS: mental status grossly normal APPEARANCE: Yes grossly normal ATTITUDE: Yes calm and Yes engaged ATTENTION/CONCENTRATION: Yes attention grossly intact Skin: COMMON NORMALS: no rashes or lesions noted GENERAL SKIN EXAM: no rashes or lesions noted Urinary Catheter Management: Aparicio Latex: Cath Placed During This Visit: yes, but has since been removed by the nurse Reason for Continuing Indwelling Catheter: Decision to DC Catheter Urinary Catheter Date of Insertion: 09/12/22 Urinary Catheter Time of Insertion: 12:50 Date Urinary Catheter Removed: 09/13/22 Time Urinary Catheter Discontinued: 06:15 Data 09/13/22 06:34 09/13/22 06:45 Micro: Microbiology 09/12/22 11:05 Occult Blood (FIT) - Final Stool - Stool Aspirate 09/12/22 13:14 Gram Stain - Final Other Source 09/12/22 13:14 Gram Stain - Final Knee - #1 Other data: At this point, there has been no growth from the cultures. We will continue to await appropriate data for antibiotic decisions. A&P Assessment and plan (1) Postoperative wound dehiscence: Patient underwent irrigation debridement with incision revision including resection of skin and subcutaneous tissues along with arthrotomy and polyethylene exchange secondary to wound dehiscence and 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 Today, the patient is doing well. Pain is well co ntrolled. She has received her PICC line. We will continue to await cultures for appropriate antibiotic therapies. Dr. Peralta from infectious diseases involved as is Dr. Chris Mary as hospitalist team. Additionally, the patient has chronic anemia which will require outpatient work-up. This occurred after both of her total knee arthroplasties, but in further review, it appears to been present for a longer period of time, but was exacerbated by the surgical procedures. Qualifiers: Encounter type: initial encounter Qualified Code(s): T81.31XA - Disruption of external operation (surgical) wound, not elsewhere classified, initial encounter (2) History of revision of total replacement of left knee joint: (3) Osteoarthritis of left knee: Attestations Medical Necessity Statement*: Patient is requiring IV antibiotic therapies for infected left total knee arthroplasty. Coding Level of Care Code Acute Code for Chg Fwd Diagnoses Postoperative wound dehiscence T81.31XA Encounter type: initial encounter History of revision of total replacement of left knee joint Z96.652 Osteoarthritis of left knee M17.12
[2022-09-13] MEDS: vancomycin 1,000 MG in sodium chloride 0.9% 250 ML 250 MG IV (14:56)
[2022-09-13 15:48] VITALS: BP 117/62; PULSE 83; RESP 16; TEMP 36.4; O2SAT 94
[2022-09-13 19:30] VITALS: BP 142/59; PULSE 90; RESP 18; TEMP 36.7; O2SAT 96
[2022-09-13 23:26] VITALS: BP 133/65; PULSE 84; RESP 16; TEMP 36.8; O2SAT 96
[2022-09-14] VITALS (7 sets, daily range): BP systolic 134–161; BP diastolic 58–68; PULSE 82–100; RESP 15–18; TEMP 36.6–36.9; O2SAT 94–97
[2022-09-14 06:59] LABS: Basophils # 0.1 10^3/uL (0.0-0.1); Basophils % 0.5 %; Eosinophils # 0.3 10^3/uL (0.0-0.8); Eosinophils % 2.6 %; Hematocrit 29.4 % (37.0-47.0); Hemoglobin 9.1 g/dL (11.5-15.3); Lymphocytes # 2.1 10^3/uL (0.8-4.8); Lymphocytes % 19.2 %; Mean Corpuscular Hemoglobin 25.1 pg (28.0-34.0); Mean Corpuscular Volume 81.2 fl (81-99); Mean Platelet Volume 8.2 fL (7.4-10.4); Monocytes # 1.3 10^3/uL (0.2-0.9); Monocytes % 11.9 %; Neutrophils # 7.13 10^3/uL (1.8-7.7); Neutrophils % 65.2 %; Nucleated Red Blood Cells % 0 %; Platelet Count 552 10^3/cmm (130-400); Red Blood Count 3.62 10^6/uL (4.1-5.3); Red Cell Distribution Width 18.2 % (12.1-15.1); White Blood Count 10.9 10^3/uL (4.0-10.0)
--- NOTE | 2022-09-14 07:58 | PC.SOCIAL ---
IMM update IMM updated with patient. Verbalized an understanding. Copy Pg 2 provided. Initialled, dated, timed, and placed in chart.
[2022-09-14] MEDS: aspirin 325 mg EC Tablet PO (09:05)
[2022-09-14] MEDS: pantoprazole DR 40 mg Tablet PO ×2 (09:05→17:05)
[2022-09-14] MEDS: lisinopril 20 mg Tablet PO (09:05)
[2022-09-14] MEDS: iron sucrose 200 MG in sodium chloride 0.9% (100 ml) 100 ML 220 MG IV (12:39)
[2022-09-14] MEDS: vancomycin 1,000 MG in sodium chloride 0.9% 250 ML 250 MG IV (13:30)
--- NOTE | 2022-09-14 16:24 | P.PN_ITS ---
Subjective Subjective: Patient denies any pain. She denies fevers, chills, nausea or emesis. Medications: Reviewed: Yes Vitals/I&O/Wt Last Vital Signs Temp 98.0 F 09/14/22 16:13 Pulse 82 09/14/22 16:13 Resp 15 09/14/22 16:13 BP 134/58 09/14/22 11:31 Pulse Ox 97 09/14/22 16:13 O2 Del Method Room Air 09/14/22 16:13 O2 Flow Rate 6 09/12/22 15:26 09/14/22 09/14/22 09/14/22 06:59 14:59 22:59 Intake Total 1080 / 1080 Balance 1080 / 1080 Physical Exam 2 Narrative: General: Patient is awake and alert. Head: Normocephalic. Atraumatic. EOM intact. Neck: No JVD. Cardiovascular: RRR. No gallops. No murmurs. No peripheral edema. Lungs: Clear to auscultation, no use of accessory muscles, no crackles or wheezes. Skin: No jaundice. No rashes. Abdomen: Normal bowel sounds, abdomen soft and nontender. Extremities: No cyanosis or clubbing. Musculoskeletal: Leg with QUIANA wrap and brace. Neurological: Moves all 4 extremities. No myoclonus. Urinary Catheter Management: Aparicio Latex: Cath Placed During This Visit: yes, but has since been removed by the nurse Reason for Continuing Indwelling Catheter: Decision to DC Catheter Urinary Catheter Date of Insertion: 09/12/22 Urinary Catheter Time of Insertion: 12:50 Date Urinary Catheter Removed: 09/13/22 Time Urinary Catheter Discontinued: 06:15 Data 09/14/22 06:52 09/13/22 06:45 Micro: Microbiology 09/12/22 13:14 Gram Stain - Final Knee - #1 Anaerobic Culture - Preliminary Wound Culture - Preliminary 09/12/22 13:14 Gram Stain - Final Other Source Tissue Culture - Preliminary Coag positive Staphylococcus 09/12/22 13:14 Body Fluid Culture - Preliminary Synovial Fluid Coag positive Staphylococcus A&P Assessment and plan (1) Postoperative wound dehiscence: S/P left knee arthropastly on 07/31/22 Post-op course c/b wound dehiscence Status post PICC line placement ID has evaluated, appreciate recommendations Continue vancomycin Follow up final cultures Qualifiers: Encounter type: initial encounter Qualified Code(s): T81.31XA - Disruption of external operation (surgical) wound, not elsewhere classified, initial encounter (2) Anemia: C/w BLAS, suspected GI source Status post 2 pRBC this admission Continue empiric PPI BID Will likely benefit from EGD/colonoscopy as outpt She has had several days of IV abx and appears non-septic, will order additional IV iron Continue to monitor w/ CBC (3) Hypertension: Continue lisinopril Plan Thank you for this consultation. IM will continue to follow. Attestations Medical Necessity Statement*: Pt requires ongoing hospitalization for IV iron, IV abx, and supportive care. Coding Level of Care Code Acute Code for [facility] Diagnoses Postoperative wound dehiscence T81.31XA Encounter type: initial encounter Anemia D64.9 Hypertension I10
[2022-09-15 04:00] VITALS: BP 164/54; PULSE 97; RESP 18; TEMP 36.7; O2SAT 98
[2022-09-15 05:28] LABS: Basophils % 0.4 %; Eosinophils # 0.3 10^3/uL (0.0-0.8); Eosinophils % 2.8 %; Hematocrit 27.3 % (37.0-47.0); Hemoglobin 8.3 g/dL (11.5-15.3); Lymphocytes # 2.6 10^3/uL (0.8-4.8); Lymphocytes % 23.5 %; Mean Corpuscular HGB Conc 30.4 g/dL (30.0-36.0); Mean Corpuscular Hemoglobin 24.9 pg (28.0-34.0); Mean Corpuscular Volume 81.7 fl (81-99); Mean Platelet Volume 8.5 fL (7.4-10.4); Monocytes # 1.1 10^3/uL (0.2-0.9); Monocytes % 10.2 %; Neutrophils # 6.78 10^3/uL (1.8-7.7); Neutrophils % 62.5 %; Nucleated Red Blood Cells % 0 %; Platelet Count 615 10^3/cmm (130-400); Red Blood Count 3.34 10^6/uL (4.1-5.3); Red Cell Distribution Width 18.5 % (12.1-15.1); White Blood Count 10.8 10^3/uL (4.0-10.0)
[2022-09-15 05:49] LABS: Alanine Aminotransferase 12 U/L (0-33); Albumin Level 2.3 g/dL (3.5-5.2); Alkaline Phosphatase 88 U/L (35-105); Anion Gap 13.1 (5-19); Aspartate Amino Transferase 16 U/L (0-32); Blood Urea Nitrogen 15 mg/dL (8-23); Calcium 8.2 mg/dL (8.5-10.5); Carbon Dioxide 24 mmol/L (22-29); Chloride 104 mmol/L (98-107); Glucose 118 mg/dL (65-115); Magnesium 1.8 mg/dL (1.7-2.3); Osmolality Calculated 286 mOsm/kg (285-295); Phosphorus 2.3 mg/dL (2.5-4.5); Potassium 4.1 mmol/L (3.5-5.1); Sodium 137 mmol/L (136-145); Total Bilirubin 0.2 mg/dL (0.15-1.2); Total Protein 6.3 g/dL (6.6-8.7)
[2022-09-15 07:56] VITALS: BP 169/64; PULSE 90; RESP 16; TEMP 36.7; O2SAT 97
[2022-09-15] MEDS: aspirin 325 mg EC Tablet PO (08:45)
[2022-09-15] MEDS: pantoprazole DR 40 mg Tablet PO ×2 (08:45→18:19)
[2022-09-15] MEDS: lisinopril 20 mg Tablet PO (08:45)
[2022-09-15 12:00] VITALS: BP 142/66; PULSE 92; RESP 17; TEMP 36.9; O2SAT 95
[2022-09-15] MEDS: vancomycin 1,000 MG in sodium chloride 0.9% 250 ML 250 MG IV (13:36)
--- NOTE | 2022-09-15 15:30 | PM.PN ---
Subjective Subjective: Patient is seen today in her room. She continues to express concern and fear regarding the infection in her prosthesis. She has been wearing the Stella brace, and she is questioning whether or not she could try knee immobilizer for more comfort. Medications: Reviewed: Yes Vitals/I&O/Wt Last Vital Signs Temp 98.5 F 09/15/22 12:00 Pulse 92 09/15/22 12:00 Resp 17 09/15/22 12:00 BP 142/66 09/15/22 12:00 Pulse Ox 95 09/15/22 12:00 O2 Del Method Room Air 09/15/22 12:00 O2 Flow Rate 6 09/12/22 15:26 09/15/22 09/15/22 09/15/22 06:59 14:59 22:59 Intake Total 1080 / 1080 250 / 1330 Balance 1080 / 1080 250 / 1330 Physical Exam Const: COMMON NORMALS: no acute distress, average body habitus, patient oriented x3 and alert GENERAL APPEARANCE: cooperative and comfortable ORIENTATION/CONSCIOUSNESS: Yes awake HENMT: COMMON NORMALS: normocephalic and atraumatic HEAD & SCALP: normocephalic and atraumatic Eye: GENERAL EYE: appearance normal, both eyes and all related structures Chest: COMMONS NORMALS: normal inspection of the chest Resp: COMMON NORMALS: normal respiratory effort EFFORT & INSPECTION: Yes able to speak in complete sentences and Yes symmetric chest movement Extremity: LEFT LOWER EXTREMITY: Yes knee joint (Silverlon dressing is removed as the patient flexed her knee in PACU) Left knee: Yes inspection (Incision is intact without further dehiscence.), Yes neurovascular exam (Intact distally with no evidence of DVT) and Yes other (Induration of the skin is resolving) Neuro: COMMON NORMALS: patient oriented x3 SENSORIUM/ORIENTATION: Yes alert Psych: COMMON NORMALS: mental status grossly normal APPEARANCE: Yes grossly normal ATTITUDE: Yes calm and Yes engaged ATTENTION/CONCENTRATION: Yes attention grossly intact Skin: COMMON NORMALS: no rashes or lesions noted GENERAL SKIN EXAM: no rashes or lesions noted Urinary Catheter Management: Aparicio Latex: Cath Placed During This Visit: yes, but has since been removed by the nurse Reason for Continuing Indwelling Catheter: Decision to DC Catheter Urinary Catheter Date of Insertion: 09/12/22 Urinary Catheter Time of Insertion: 12:50 Date Urinary Catheter Removed: 09/13/22 Time Urinary Catheter Discontinued: 06:15 Data 09/15/22 04:44 09/15/22 04:44 Micro: Microbiology 09/12/22 13:14 Gram Stain - Final Knee - #1 Anaerobic Culture - Preliminary Wound Culture - Final Staphylococcus aureus 09/12/22 13:14 Body Fluid Culture - Final Synovial Fluid Staphylococcus aureus 09/12/22 13:14 Gram Stain - Final Other Source Tissue Culture - Final Staphylococcus aureus A&P Assessment and plan (1) Postoperative wound dehiscence: Patient underwent irrigation debridement with incision revision including resection of skin and subcutaneous tissues along with arthrotomy and polyethylene exchange secondary to wound dehiscence and 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 Cultures demonstrated Staph aureus, and sensitivities demonstrate it is sensitive to all tested antibiotics. Today, the Silverlon dressing is removed due to concerns regarding possible opening of the wound secondary to flexion while the patient was in the recovery room. The wound looks excellent, and the area of concern directly over the patella remains intact. There is no evidence of DVT, and the patient is neurologically intact. Dr. Peralta, infectious disease, will be seeing the patient later this evening. She has received her PICC line, and appropriate antibiotic therapy will be determined. Qualifiers: Encounter type: initial encounter Qualified Code(s): T81.31XA - Disruption of external operation (surgical) wound, not elsewhere classified, initial encounter (2) History of revision of total replacement of left knee joint: (3) Osteoarthritis of left knee: Attestations Medical Necessity Statement*: Ongoing IV antibiotics following irrigation and debridement left total knee wound dehiscence Coding Level of Care Code Acute Code for [facility] Diagnoses Postoperative wound dehiscence T81.31XA Encounter type: initial encounter History of revision of total replacement of left knee joint Z96.652 Osteoarthritis of left knee M17.12
[2022-09-15 16:00] VITALS: BP 151/71; PULSE 89; RESP 17; TEMP 36.7; O2SAT 96
--- NOTE | 2022-09-15 18:46 | PM.PN ---
Subjective Subjective: chart reviewed for updates. cx updated to reveal MSSA. Abx changed to cefazolin 2g iv every 8 hrs. D/c vancomycin. OR note reviewed- infection extending into joint. Anticpiate at least 6 weeks organism directed therapy for early PJI Vitals/I&O/Wt Last Vital Signs Temp 98.0 F 09/15/22 16:00 Pulse 89 09/15/22 16:00 Resp 17 09/15/22 16:00 BP 151/71 09/15/22 16:00 Pulse Ox 96 09/15/22 16:00 O2 Del Method Room Air 09/15/22 16:00 O2 Flow Rate 6 09/12/22 15:26 09/15/22 09/15/22 09/15/22 06:59 14:59 22:59 Intake Total 1208 / 1080 595 / 1675 Balance 8843 / 1080 595 / 1675 Physical Exam Urinary Catheter Management: Aparicio Latex: Cath Placed During This Visit: yes, but has since been removed by the nurse Reason for Continuing Indwelling Catheter: Decision to DC Catheter Urinary Catheter Date of Insertion: 09/12/22 Urinary Catheter Time of Insertion: 12:50 Date Urinary Catheter Removed: 09/13/22 Time Urinary Catheter Discontinued: 06:15 Data 09/16/22 04:40 09/16/22 04:40 Micro: Microbiology 09/12/22 13:14 Gram Stain - Final Knee - #1 Anaerobic Culture - Preliminary Wound Culture - Final Staphylococcus aureus 09/12/22 13:14 Body Fluid Culture - Final Synovial Fluid Staphylococcus aureus 09/12/22 13:14 Gram Stain - Final Other Source Tissue Culture - Final Staphylococcus aureus A&P Assessment and plan (1) Postoperative wound dehiscence: as above Qualifiers: Encounter type: initial encounter Qualified Code(s): T81.31XA - Disruption of external operation (surgical) wound, not elsewhere classified, initial encounter Attestations Medical Necessity Statement*: per admitting note, iv abx Coding Level of Care Code Acute Code for Chg Fwd Diagnoses Postoperative wound dehiscence T81.31XA Encounter type: initial encounter
[2022-09-15 20:00] VITALS: BP 166/78; PULSE 89; RESP 16; TEMP 36.8; O2SAT 95
[2022-09-15] MEDS: ceFAZolin 2,000 MG in sodium chloride 0.9% (plus) 50 ML 100 MG IV (20:56)
--- NOTE | 2022-09-15 21:38 | PM.PN ---
Subjective Subjective: Discussed hemoglobin of 8.3 from this morning labs, down from 9.1, from 9.5. This seemed to cause Kait quite a bit of worsening anxiety. Discussed we would continue to trend and transfuse if needed. Also discussed some natural fluctuation in HGB day to day. She reports she is eager to go home. Discussed Cx results showing MSSA and we will likely switch abx tomorrow. Still looking for HH options for home abx as well. Patient denies fevers, chills, nausea or emesis. Denies any pain in leg. Medications: Reviewed: Yes Vitals/I&O/Wt Last Vital Signs Temp 98.2 F 09/15/22 20:00 Pulse 89 09/15/22 20:00 Resp 16 09/15/22 20:00 BP 166/78 09/15/22 20:00 Pulse Ox 95 09/15/22 20:00 O2 Del Method Room Air 09/15/22 20:00 O2 Flow Rate 6 09/12/22 15:26 09/15/22 09/15/22 09/15/22 06:59 14:59 22:59 Intake Total 1080 / 1080 645 / 1725 Balance 1080 / 1080 645 / 1725 Physical Exam Narrative: General: Patient is awake and alert. Mildly anxious. Oriented. Head: Normocephalic. Atraumatic. EOM intact. Neck: No JVD. Cardiovascular: RRR. No gallops. No murmurs. No peripheral edema. Lungs: Clear to auscultation, no use of accessory muscles, no crackles or wheezes. Skin: No jaundice. No rashes. Abdomen: Normal bowel sounds, abdomen soft and nontender. Extremities: No cyanosis or clubbing. Musculoskeletal: Leg with QUIANA wrap and brace. Neurological: Moves all 4 extremities. No myoclonus. Urinary Catheter Management: Aparicio Latex: Cath Placed During This Visit: yes, but has since been removed by the nurse Reason for Continuing Indwelling Catheter: Decision to DC Catheter Urinary Catheter Date of Insertion: 09/12/22 Urinary Catheter Time of Insertion: 12:50 Date Urinary Catheter Removed: 09/13/22 Time Urinary Catheter Discontinued: 06:15 Data 09/15/22 04:44 09/15/22 04:44 Micro: Microbiology 09/12/22 13:14 Gram Stain - Final Knee - #1 Anaerobic Culture - Preliminary Wound Culture - Final Staphylococcus aureus 09/12/22 13:14 Body Fluid Culture - Final Synovial Fluid Staphylococcus aureus 09/12/22 13:14 Gram Stain - Final Other Source Tissue Culture - Final Staphylococcus aureus A&P Assessment and plan (1) Postoperative wound dehiscence: S/P left knee arthropastly on 07/31/[address] Drummond (primary) Post-op course c/b wound dehiscence and MSSA septic joint Status post explantation w placement of stabilizer and tibial insert on 09/12 Status post PICC line placement ID has evaluated, initially planned for 6 weeks of IV abx for septic joint, continue vancomycin for today Recommend ID follow up on Friday with discontinuation vancomycin and abx narrowing to MSSA Qualifiers: Encounter type: initial encounter Qualified Code(s): T81.31XA - Disruption of external operation (surgical) wound, not elsewhere classified, initial encounter (2) Anemia: C/w BLAS, suspected GI source S/P multiple pRBC and iron sucrose infusions Continue empiric PPI BID Endoscopy as outpt w/ Dr Chen arranged by Dr Mary HGB continues to downtrend, will get repeat in AM (3) Hypertension: Continue lisinopril Plan Thank you for this consultation. IM will continue to follow. Attestations Medical Necessity Statement*: Pt requires ongoing hospitalization for serial labs, IV abx, and supportive care. Coding Level of Care Code Acute Code for Chg Fwd Diagnoses Postoperative wound dehiscence T81.31XA Encounter type: initial encounter Anemia D64.9 Hypertension I10
[2022-09-15 23:43] VITALS: BP 165/78; PULSE 87; RESP 16; TEMP 36.8; O2SAT 96
[2022-09-16 03:59] VITALS: BP 154/67; PULSE 91; RESP 16; TEMP 37.1; O2SAT 97
[2022-09-16] MEDS: ceFAZolin 2,000 MG in sodium chloride 0.9% (plus) 50 ML 100 MG IV ×3 (04:41→21:04)
[2022-09-16 05:09] LABS: Basophils # 0.1 10^3/uL (0.0-0.1); Basophils % 0.4 %; Eosinophils # 0.2 10^3/uL (0.0-0.8); Eosinophils % 1.9 %; Hematocrit 27.8 % (37.0-47.0); Hemoglobin 8.4 g/dL (11.5-15.3); Lymphocytes % 17.7 %; Mean Corpuscular HGB Conc 30.2 g/dL (30.0-36.0); Mean Corpuscular Hemoglobin 25.1 pg (28.0-34.0); Mean Corpuscular Volume 83.2 fl (81-99); Mean Platelet Volume 8.5 fL (7.4-10.4); Monocytes # 1.2 10^3/uL (0.2-0.9); Monocytes % 10.3 %; Neutrophils # 7.86 10^3/uL (1.8-7.7); Nucleated Red Blood Cells % 0 %; Platelet Count 537 10^3/cmm (130-400); Red Blood Count 3.34 10^6/uL (4.1-5.3); White Blood Count 11.4 10^3/uL (4.0-10.0)
[2022-09-16 05:31] LABS: Albumin Level 2.4 g/dL (3.5-5.2); Blood Urea Nitrogen 15 mg/dL (8-23); Calcium 8.3 mg/dL (8.5-10.5); Carbon Dioxide 24 mmol/L (22-29); Chloride 103 mmol/L (98-107); Glucose 128 mg/dL (65-115); Magnesium 1.8 mg/dL (1.7-2.3); Phosphorus 2.4 mg/dL (2.5-4.5); Sodium 135 mmol/L (136-145)
[2022-09-16 05:49] LABS: Anion Gap 12.5 (5-19); Potassium 4.5 mmol/L (3.5-5.1)
[2022-09-16 08:00] VITALS: BP 164/68; PULSE 91; RESP 16; TEMP 36.9; O2SAT 95
[2022-09-16] MEDS: lisinopril 20 mg Tablet PO (08:07)
[2022-09-16] MEDS: aspirin 325 mg EC Tablet PO (08:07)
[2022-09-16] MEDS: pantoprazole DR 40 mg Tablet PO ×2 (08:07→17:51)
--- NOTE | 2022-09-16 11:44 | PC.SOCIAL ---
IMM Update pg 2 of IMM updated and reviewed w/ patient. Copy provided and Copy in chart dated, and initialed.
[2022-09-16 12:00] VITALS: BP 133/61; PULSE 92; RESP 16; TEMP 36.8; O2SAT 96
[2022-09-16 12:06] LABS: Vitamin B12 821 pg/mL (232-1245)
--- NOTE | 2022-09-16 12:38 | PC.OT ---
ATTEMPTED TO SEE PATIENT FOR SKILLED OT TREATMENT. PATIENT HAS BEEN AMBULATING IN HER ROOM Gretchen; PERFORMING ALL OF HER ADLS WITH MOD I. PATIENT NO LONGER REQUIRES SKILLED OT SERVICES. D/C OT
--- NOTE | 2022-09-16 14:17 | PM.PN ---
Subjective Subjective: Hospital course, labs appreciated. Examination patient sitting comfortably in bed. Denies any nausea, vomiting, headache. Remains on room air. Able to work with physical therapy. Anxious to get home. Continues to complain of pain on minimal ambulation with physical therapy though states getting better. Medications: Reviewed: Yes Vitals/I&O/Wt Last Vital Signs Temp 98.2 F 09/16/22 12:00 Pulse 92 09/16/22 12:00 Resp 16 09/16/22 12:00 BP 133/61 09/16/22 12:00 Pulse Ox 96 09/16/22 12:00 O2 Del Method Room Air 09/16/22 12:00 O2 Flow Rate 6 09/12/22 15:26 09/15/22 09/16/22 09/16/22 22:59 06:59 14:59 Intake Total 1974 300 / 2275 360 / 360 Balance 1974 300 / 2275 360 / 360 Physical Exam Narrative: General: Patient is awake and alert. Mildly anxious. Oriented. Head: Normocephalic. Atraumatic. EOM intact. Neck: No JVD. Cardiovascular: RRR. No gallops. No murmurs. No peripheral edema. Lungs: Clear to auscultation, no use of accessory muscles, no crackles or wheezes. Skin: No jaundice. No rashes. Abdomen: Normal bowel sounds, abdomen soft and nontender. Extremities: No cyanosis or clubbing. Musculoskeletal: Leg with QUIANA wrap and brace. Neurological: Moves all 4 extremities. No myoclonus. Urinary Catheter Management: Aparicio Latex: Cath Placed During This Visit: yes, but has since been removed by the nurse Reason for Continuing Indwelling Catheter: Decision to DC Catheter Urinary Catheter Date of Insertion: 09/12/22 Urinary Catheter Time of Insertion: 12:50 Date Urinary Catheter Removed: 09/13/22 Time Urinary Catheter Discontinued: 06:15 Data 09/16/22 04:40 09/16/22 04:40 Micro: Microbiology 09/12/22 13:14 Gram Stain - Final Knee - #1 Anaerobic Culture - Preliminary Wound Culture - Final Staphylococcus aureus A&P Assessment and plan (1) Postoperative wound dehiscence: S/P left knee arthropastly on 07/31/[address] Drummond (primary) Post-op course c/b wound dehiscence and MSSA septic joint Status post explantation w placement of stabilizer and tibial insert on 09/12 Status post PICC line placement Appreciate ID recommendations. Continue with cefazolin 2 g IV every 8 hourly. Plan for IV antibiotics for 6 weeks with weekly CBC and CMP to be followed up with ID as an outpatient. Vancomycin stopped. Qualifiers: Encounter type: initial encounter Qualified Code(s): T81.31XA - Disruption of external operation (surgical) wound, not elsewhere classified, initial encounter (2) Anemia: C/w BLAS, suspected GI source S/P multiple pRBC and iron sucrose infusions Continue empiric PPI BID Start on oral iron supplementation. Endoscopy as outpt w/ Dr Chen arranged by Dr Mary (3) Hypertension: Goal blood pressure less than 140/90 mmHg. 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 Anticoagulation as per primary team. Protonix for PUD prophylaxis. Thank you for this consultation. IM will continue to follow. 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
[2022-09-16 16:00] VITALS: BP 156/66; PULSE 105; RESP 18; TEMP 36.9; O2SAT 97
[2022-09-16] MEDS: sennosides-docusate Tablet 1 TAB PO (17:51)
[2022-09-16] MEDS: ferrous gluconate 324 mg Tablet PO (17:51)
--- NOTE | 2022-09-16 18:25 | P.PN_ITS ---
Subjective Subjective: Patient still complains of anxiety with regards to long-term outcome. She is encouraged by the fact that this is a susceptible organism. This is once again discussed with her and her in the room. Medications: Reviewed: Yes Vitals/I&O/Wt Last Vital Signs Temp 98.5 F 09/16/22 16:00 Pulse 105 H 09/16/22 16:00 Resp 18 09/16/22 16:00 BP 156/66 09/16/22 16:00 Pulse Ox 97 09/16/22 16:00 O2 Del Method Room Air 09/16/22 16:00 O2 Flow Rate 6 09/12/22 15:26 09/16/22 09/16/22 09/16/22 06:59 14:59 22:59 Intake Total 300 / 2275 770 / 770 240 / 1010 Balance 300 / 2275 770 / 770 240 / 1010 Physical Exam Const: COMMON NORMALS: no acute distress, average body habitus, patient orien payton x3 and alert GENERAL APPEARANCE: cooperative and comfortable ORIENTATION/CONSCIOUSNESS: Yes awake HENMT: COMMON NORMALS: normocephalic and atraumatic HEAD & SCALP: normocephalic and atraumatic Eye: GENERAL EYE: appearance normal, both eyes and all related structures Chest: COMMONS NORMALS: normal inspection of the chest Resp: COMMON NORMALS: normal respiratory effort EFFORT & INSPECTION: Yes able to speak in complete sentences and Yes symmetric chest movement Extremity: NARRATIVE EXTREMITY EXAM: Knee immobilizer and dressing are left in place. Neuro: COMMON NORMALS: patient oriented x3 SENSORIUM/ORIENTATION: Yes alert Psych: COMMON NORMALS: mental status grossly normal APPEARANCE: Yes grossly normal ATTITUDE: Yes calm and Yes engaged ATTENTION/CONCENTRATION: Yes attention grossly intact Skin: COMMON NORMALS: no rashes or lesions noted GENERAL SKIN EXAM: no rashes or lesions noted Urinary Catheter Management: Aparicio Latex: Cath Placed During This Visit: yes, but has since been removed by the nurse Reason for Continuing Indwelling Catheter: Decision to DC Catheter Urinary Catheter Date of Insertion: 09/12/22 Urinary Catheter Time of Insertion: 12:50 Date Urinary Catheter Removed: 09/13/22 Time Urinary Catheter Discontinued: 06:15 Data 09/16/22 04:40 09/16/22 04:40 Micro: Microbiology 09/12/22 13:14 Gram Stain - Final Knee - #1 Anaerobic Culture - Preliminary Wound Culture - Final Staphylococcus aureus A&P Assessment and plan (1) Postoperative wound dehiscence: Patient underwent irrigation debridement with incision revision including resection of skin and subcutaneous tissues along with arthrotomy and polyethylene exchange secondary to wound dehiscence and 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 Cultures demonstrated Staph aureus, and sensitivities demonstrate it is sensitive to all tested antibiotics. Patient's wound was evaluated yesterday. She is reminded how good it looked at that time. I have advised her the current dressing will remain in place for at least 7 days. She may be weightbearing as tolerated. Qualifiers: Encounter type: initial encounter Qualified Code(s): T81.31XA - Disruption of external operation (surgical) wound, not elsewhere classified, initial encounter (2) History of revision of total replacement of left knee joint: (3) Osteoarthritis of left knee: Attestations Medical Necessity Statement*: Ongoing antibiotic therapies following irrigation debridement and polyethylene exchange to the left knee. Coding Level of Care Code Acute Code for [facility] Diagnoses Postoperative wound dehiscence T81.31XA Encounter type: initial encounter History of revision of total replacement of left knee joint Z96.652 Osteoarthritis of left knee M17.12
[2022-09-16 19:42] VITALS: BP 149/67; PULSE 93; RESP 17; TEMP 37.1; O2SAT 96
[2022-09-16 23:36] VITALS: BP 163/72; PULSE 89; RESP 17; TEMP 36.9; O2SAT 96
--- NOTE | 2022-09-17 00:07 | PM.PN ---
Subjective Subjective: Infectious disease progress note. Patient has had interval placement of PICC line. Anxious about infection and outcomes. No acute interim events. Case management working on arranging discharge antibiotics. Medications: Reviewed: Yes Vitals/I&O/Wt Last Vital Signs Temp 98.5 F 09/16/22 23:36 Pulse 89 09/16/22 23:36 Resp 17 09/16/22 23:36 BP 163/72 09/16/22 23:36 Pulse Ox 96 09/16/22 23:36 O2 Del Method Room Air 09/16/22 16:00 O2 Flow Rate 6 09/12/22 15:26 09/16/22 09/16/22 09/17/22 14:59 22:59 06:59 Intake Total 770 / 770 440 / 1210 Balance 770 / 770 440 / 1210 Physical Exam Narrative: General: No acute distress, AO x3 HEENT: PERRLA, pupils bilaterally equal and reactive, pallors not present Chest: Normal vesicular breath sounds, no added sounds, equal good air entry bilaterally CVS: S1-S2 regular, no murmurs, no tachycardia, no gallops, no rubs Abdomen: Soft, nontender, no organomegaly, bowel sounds present Neuro: No focal deficits, no facial deformity, AO x3, power 5/5 in all limbs Urinary Catheter Management: Aparicio Latex: Cath Placed During This Visit: yes, but has since been removed by the nurse Reason for Continuing Indwelling Catheter: Decision to DC Catheter Urinary Catheter Date of Insertion: 09/12/22 Urinary Catheter Time of Insertion: 12:50 Date Urinary Catheter Removed: 09/13/22 Time Urinary Catheter Discontinued: 06:15 Data 09/16/22 04:40 09/16/22 04:40 Micro: Microbiology 09/12/22 13:14 Gram Stain - Final Knee - #1 Anaerobic Culture - Preliminary Wound Culture - Final Staphylococcus aureus Launch?Grid [facility] [address] [place] [id number] GEORGI GARCIA, COMPLIANCE MANAGER NAME: Kait Simmons LOC: [facility] U #: [id number] AGE/SX: 77/F ROOM: [facility] RE09/11/[address]: Rajni Drummond MD : 1945 BED: 1 DIS: FAX #: STATUS: ADM IN TLOC: Spec #: [id number] Dinora: 09/12/22 Status: RES Req #: [id number] Recd: 09/12/[address]: Rajni Drummond MD Src: Knee SpDesc: #1 Ordered: WC and GS, Anaer Comments: Comment left knee fluid joint Procedure Result Verified Site Gram Stain Final 09/12/22 Result RARE GRAM POSITIVE COCCI IN PAIRS NO WHITE BLOOD CELLS Anaerobic Culture Preliminary 09/16/22 NO ANAEROBES ISOLATED ON DAY 4 Anaerobic Culture Preliminary (changed) 09/15/22 NO ANAEROBES ISOLATED ON DAY 3 Anaerobic Culture Preliminary (changed) 09/14/22 NO ANAEROBES ISOLATED ON DAY 2 Anaerobic Culture Preliminary (changed) 09/13/22 NO ANAEROBES ISOLATED ON DAY 1 Wound Culture Final 09/15/22 Organism 1 Staphylococcus aureus Growth MODERATE DAY 3 CRITICAL RESULT YES/NO: YES CRITICAL CALLED BY: CARLTON TO AND READ BACK BY: IVETTE DATE: 09/15/22 TIME: 1443 S aureus M.I.C. RX --------- ------ * Amoxicillin/Clavulanate <=4/2 S * Ampicillin <=2 R * Ampicillin/Sulbactam <=8/4 S * Ceftriaxone <=8 S * Ciprofloxacin <=1 S * Clindamycin <=0.5 S * Erythromycin <=0.5 S * Gentamicin <=4 S * Levofloxacin <=1 S * Linezolid 4 S * Oxacillin <=0.25 S * Penicillin <=0.03 R * Rifampin <=1 S * Tetracycline <=4 S * Trimethoprim/Sulfamethoxazole <=0.5/9.5 S Vancomycin 2 S Daptomycin <=0.5 S Wound Culture Preliminary (changed) 09/14/22 Organism 1 Coag positive Staphylococcus Growth MODERATE DAY 2, RESULTS TO FOLLOW Wound Culture Preliminary (changed) 09/13/22 DAY 1, RESULTS TO FOLLOW [facility] [address] [place] [id number] GEORGI GARCIA, COMPLIANCE MANAGER NAME: Kait Simmons LOC: [facility] U #: [id number] AGE/SX: 77/F ROOM: 263 RE09/11/[address]: Rajni Drummond MD : 1945 BED: 1 DIS: FAX #: STATUS: ADM IN TLOC: Spec #: [id number] Dinora: 09/12/22 Status: COMP Req #: [id number] Recd: 09/12/[address]: Rajni Drummond MD Src: Other Sour SpDesc: Ordered: Tissue Cult GS Comments: Comment left knee synovium Procedure Result Verified Site Gram Stain Final 09/12/22 Result NO WHITE BLOOD CELLS NO ORGANISMS SEEN * This is a corrected result. * A prior result that was reported as final has been changed. Gram Stain Final (changed) 09/12/22 Result RARE GRAM POSITIVE COCCI IN PAIRS NO WHITE BLOOD CELLS Tissue Culture Final 09/14/22-1912 Organism 1 Staphylococcus aureus Growth MODERATE DAY 2 CRITICAL RESULT YES/NO: YES CRITICAL CALLED BY: RT TO AND READ BACK BY: LORI DATE: 09/14/22 TIME: 1912 S aureus M.I.C. RX --------- ------ * Amoxicillin/Clavulanate <=4/2 S * Ampicillin/Sulbactam <=8/4 S * Ceftriaxone <=8 S * Ciprofloxacin <=1 S * Clindamycin <=0.5 S * Erythromycin <=0.5 S * Gentamicin <=4 S * Levofloxacin <=1 S * Linezolid 4 S * Oxacillin <=0.25 S * Penicillin <=0.03 S * Rifampin <=1 S * Tetracycline <=4 S * Trimethoprim/Sulfamethoxazole <=0.5/9.5 S Vancomycin 2 S Daptomycin 1 S Tissue Culture Preliminary (changed) 09/14/22-1843 Organism 1 Staphylococcus aureus Growth MODERATE DAY 2 CRITICAL RESULT YES/NO: YES CRITICAL CALLED BY: RT S aureus M.I.C. RX --------- ------ * Amoxicillin/Clavulanate <=4/2 S * Ampicillin/Sulbactam <=8/4 S * Ceftriaxone <=8 S * Ciprofloxacin <=1 S * Clindamycin <=0.5 S * Erythromycin <=0.5 S * Gentamicin <=4 S * Levofloxacin <=1 S * Linezolid 4 S * Oxacillin <=0.25 S * Penicillin <=0.03 S * Rifampin <=1 S * Tetracycline <=4 S * Trimethoprim/Sulfamethoxazole <=0.5/9.5 S Vancomycin 2 S Daptomycin 1 S Tissue Culture Preliminary (changed) 09/13/22 Organism 1 Coag positive Staphylococcus Growth MODERATE DAY 1, RESULTS TO FOLLOW [facility] [address] [place] [address] DR. GEORGI GARCIA, COMPLIANCE MANAGER NAME: Kait Simmons LOC: [facility] U #: [id number] AGE/SX: 77/F ROOM: [facility] RE09/11/[address]: Rajni Drummond MD : 1945 BED: 1 DIS: FAX #: STATUS: ADM IN TLOC: Spec #: [id number] Dinora: 09/12/224 Status: COMP Req #: [id number] Recd: 09/12/22-[address]: Rajni Drummond MD Src: Syn Fld SpDesc: Ordered: Body Fld Comments: Comment left knee synovium Procedure Result Verified Site Body Fluid Culture Final 09/14/22 Organism 1 Staphylococcus aureus Growth MODERATE DAY 2 CRITICAL RESULT YES/NO: YES CRITICAL CALLED BY: RT TO AND READ BACK BY: LORI DATE: 09/14/22 TIME: 1912 S aureus M.I.C. RX --------- ------ * Amoxicillin/Clavulanate <=4/2 S * Ampicillin/Sulbactam <=8/4 S * Ceftriaxone <=8 S * Ciprofloxacin <=1 S * Clindamycin <=0.5 S * Erythromycin <=0.5 S * Gentamicin <=4 S * Levofloxacin <=1 S * Linezolid 4 S * Oxacillin <=0.25 S * Penicillin 0.12 S * Rifampin <=1 S * Tetracycline <=4 S * Trimethoprim/Sulfamethoxazole <=0.5/9.5 S Vancomycin 2 S Daptomycin <=0.5 S Body Fluid Culture Preliminary (changed) 09/14/22-1846 Organism 1 Staphylococcus aureus Growth MODERATE DAY 2 CRITICAL RESULT YES/NO: YES CRITICAL CALLED BY: RT S aureus M.I.C. RX --------- ------ * Amoxicillin/Clavulanate <=4/2 S * Ampicillin/Sulbactam <=8/4 S * Ceftriaxone <=8 S * Ciprofloxacin <=1 S * Clindamycin <=0.5 S * Erythromycin <=0.5 S * Gentamicin <=4 S * Levofloxacin <=1 S * Linezolid 4 S * Oxacillin <=0.25 S * Penicillin 0.12 S * Rifampin <=1 S * Tetracycline <=4 S * Trimethoprim/Sulfamethoxazole <=0.5/9.5 S Vancomycin 2 S Daptomycin <=0.5 S Body Fluid Culture Preliminary (changed) 09/13/22-1827 Organism 1 Coag positive Staphylococcus Growth MODERATE DAY 1, RESULTS TO FOLLOW A&P Assessment and plan (1) Prosthetic joint infection: (2) Postoperative wound dehiscence: Qualifiers: Encounter type: initial encounter Qualified Code(s): T81.31XA - Disruption of external operation (surgical) wound, not elsewhere classified, initial encounter Plan Patient underwent left knee arthroplasty on July 31, 2022 with postop course complicated by wound dehiscence and then 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 No significant improvement with oral bactrim Now s/p Irrigation and debridement left total knee arthroplasty, medial knee joint arthrotomy with complete synovectomy, and revision of tibial component insert with removal of polyethylene insert and replacement on 09/12/22. Attempted joint salvage given early infection. OR cx now revealing MSSA. Currently on treatment with cefazolin 2 g IV every 8 hours Plan to treat with 6 weeks of MSSA directed therapy with IV cefazolin 2 g IV every 8 hours along with scientific associate rifampin. At the end of 6 weeks treatment, will plan to switch to oral combination therapy for additional 6 weeks followed by chronic suppression given retention of joint. While on the above IV antibiotic regimen recommend to obtain weekly CBC, LFT, creatinine and CRP and fax to the infectious disease clinic. Picc line has been placed to facilitate above. Follow-up with in person visit in the clinic in 6 weeks. Attestations Medical Necessity Statement*: iv abx, per admitting Coding Level of Care Code Acute Code for [facility] Fwd Diagnoses Prosthetic joint infection T84.50XA Postoperative wound dehiscence T81.31XA Encounter type: initial encounter
[2022-09-17 03:44] VITALS: BP 152/69; PULSE 83; RESP 17; TEMP 36.9; O2SAT 99
[2022-09-17] MEDS: ceFAZolin 2,000 MG in sodium chloride 0.9% (plus) 50 ML 100 MG IV (04:30)
[2022-09-17 08:00] VITALS: BP 120/68; PULSE 74; RESP 18; TEMP 36.9; O2SAT 93
[2022-09-17] MEDS: ferrous gluconate 324 mg Tablet PO (08:08)
[2022-09-17] MEDS: aspirin 325 mg EC Tablet PO (08:09)
[2022-09-17] MEDS: pantoprazole DR 40 mg Tablet PO (08:09)
[2022-09-17] MEDS: sennosides-docusate Tablet 1 TAB PO (08:09)
[2022-09-17] MEDS: lisinopril 20 mg Tablet PO (08:09)
--- NOTE | 2022-09-17 11:19 | P.DS_ITS ---
Discharge Providers Date of Admission: 09/11/22 16:35 Date of Discharge: September 17, 2022 Attending Provider at Admission: Rajni Drummond MD Attending Provider at Discharge: Rajni Drummond MD Primary Care Provider: Barbara Quinn MD Diagnoses at Discharge Discharge Diagnosis (1) Prosthetic joint infection: Status: Acute (2) Postoperative wound dehiscence: Status: Acute Qualifiers: Encounter type: initial encounter Qualified Code(s): T81.31XA - Disruption of external operation (surgical) wound, not elsewhere classified, initial encounter Reason for Visit Reason for Visit: Total Left Knee Infection Brief History: Kait Simmons is a very pleasant 77-year-old woman who underwent left total knee arthroplasty on July 30, 2022.? Earlier in the year, she had undergone right total knee arthroplasty uneventfully.? Both of these surgical procedures required revision components secondary to severe deformity and bone loss.? The patient presented to my clinic yesterday with a an area of dehiscence anteriorly over the patella and another area superiorly within her incision.? Decision was made to admit her to the hospital for stabilization prior to surgical intervention.? Risks and complications of surgery were discussed with her.? She was advised that we will be doing an irrigation and debridement with possible knee arthrotomy and polyethylene exchange.? Patient understood the risks and complications and agreed to proceed with the surgical intervention.? The evening prior to surgery, she was found to be anemic with a hemoglobin of 6.8.? This was treated with transfusion.? Patient also had a duplex ultrasound to assure she did not have a DVT, and this was negative.? Hospitalist consultation was obtained secondary to the anemia and infectious disease consult was obtained secondary to the patient's dehiscence.? Both of these specialties saw the patient prior to surgical intervention. Hospital Course Hospital Course Kait Michelle is a very pleasant 77-year-old woman who underwent left total knee arthroplasty on July 30, 2022. Earlier this week, she presented to the office with an area of wound dehiscence over the patella. It was unclear whether this entered the knee joint or was merely in the prepatellar bursa. The patient was advised that we would take her to the operating room and address the dehiscence with skin debridement as well as debridement of the prepatellar bursa. She was also advised at that time, we would evaluate for entry into the knee joint. This was what was accomplished in OR, and it became apparent that the infection did not involve the joint. There was copious synovitis. There was no evidence of loosening or other issue with the prosthesis. Due to this, the patient underwent total synovectomy of the left knee as well as removal of the polyethylene and exchange with a new tibial insert. This was accomplished uneventfully. The patient was evaluated by Dr. Peralta of infectious disease while in hospital, and she was followed by the hospitalist team. Cultures taken at the time of surgery were evaluated, and appropriate antibiotic therapies were prescribed for the patient. She will receive Ancef 2 g 3 times daily at home as well as rifampin orally. This was upon the recommendation of Dr. Peralta. Prior to discharge, the patient's Silverlon dressing was removed as she had significantly flexed her knee while in the recovery room prior to being placed in a Stella brace. The wound looked good while she was hospitalized. There was minimal to no drainage. Following placement of a PICC line as well as arranging for home IV antibiotics, the patient was discharged home and will follow-up with me at the office. Physical Exam Const: COMMON NORMALS: no acute distress, average body habitus, patient oriented x3 and alert GENERAL APPEARANCE: cooperative and comfortable ORIENTATION/CONSCIOUSNESS: Yes awake HENMT: COMMON NORMALS: normocephalic and atraumatic HEAD & SCALP: normocephalic and atraumatic Eye: GENERAL EYE: appearance normal, both eyes and all related structures Chest: COMMONS NORMALS: normal inspection of the chest Resp: COMMON NORMALS: normal respiratory effort EFFORT & INSPECTION: Yes able to speak in complete sentences and Yes symmetric chest movement Extremity: LEFT LOWER EXTREMITY: Yes knee joint (Dressing was removed earlier in the week, wound was benign) Left knee: Yes inspection (Today, there is no significant swelling or erythema), Yes ROM (Patient is to wear the knee immobilizer) and Yes other (No evidence of DVT) Neuro: COMMON NORMALS: patient oriented x3 SENSORIUM/ORIENTATION: Yes alert Psych: COMMON NORMALS: mental status grossly normal APPEARANCE: Yes grossly normal ATTITUDE: Yes calm and Yes engaged ATTENTION/CONCENTRATION: Yes attention grossly intact Skin: COMMON NORMALS: no rashes or lesions noted GENERAL SKIN EXAM: no rashes or lesions noted Urinary Catheter Management: Aparicio Latex: Cath Placed During This Visit: yes, but has since been removed by the nurse Reason for Continuing Indwelling Catheter: Decision to DC Catheter Urinary Catheter Date of Insertion: 09/12/22 Urinary Catheter Time of Insertion: 12:50 Date Urinary Catheter Removed: 09/13/22 Time Urinary Catheter Discontinued: 06:15 Discharge Data Studies Completed and Pending Completed Studies During Hospitalization Category Date Time Status CXRP [XR chest 1V portable 49893] Routine Exams 09/13/22 12:55 Completed US venous duplex lower extremity LT [CV venous duplex Ultrasound 09/11/22 17:32 [place] [address]] Routine Pending at discharge Category Date Time Status Anaerobic Culture Routine Lab 09/12/22 13:14 Results Wound Culture and Gram Stain Routine Lab 09/12/22 13:14 Results Radiology Impressions Chest X-Ray 09/13/22 12:55 IMPRESSION: Satisfactory positioning of RIGHT PICC line. Laboratory Results WBC 11.4 10^3/uL (4.0-10.0) H 09/16/22 04:40 Corrected WBC Cancelled 09/14/22 05:27 RBC 3.34 10^6/uL (4.1-5.3) L 09/16/22 04:40 Hgb 8.4 g/dL (11.5-15.3) L 09/16/22 04:40 Hct 27.8 % (37.0-47.0) L 09/16/22 04:40 MCV 83.2 fl (81-99) 09/16/22 04:40 MCH 25.1 pg (28.0-34.0) L 09/16/22 04:40 MCHC 30.2 g/dL (30.0-36.0) 09/16/22 04:40 RDW 19.0 % (12.1-15.1) H 09/16/22 04:40 Plt Count 537 10^3/cmm (130-400) H 09/16/22 04:40 MPV 8.5 fL (7.4-10.4) 09/16/22 04:40 Gran % Cancelled 09/14/22 05:27 Neut % (Auto) 69.0 % 09/16/22 04:40 Lymph % (Auto) 17.7 % 09/16/22 04:40 [place] % (Auto) 10.3 % 09/16/22 04:40 Eos % (Auto) 1.9 % 09/16/22 04:40 Baso % (Auto) 0.4 % 09/16/22 04:40 Neut # (Auto) 7.86 10^3/uL (1.8-7.7) H 09/16/22 04:40 Lymph # (Auto) 2.0 10^3/uL (0.8-4.8) 09/16/22 04:40 [place] # (Auto) 1.2 10^3/uL (0.2-0.9) H 09/16/22 04:40 Eos # (Auto) 0.2 10^3/uL (0.0-0.8) 09/16/22 04:40 Baso # (Auto) 0.1 10^3/uL (0.0-0.1) 09/16/22 04:40 Absolute Gran (auto) Cancelled 09/14/22 05:27 Nucleated RBC % (auto) 0 % 09/16/22 04:40 Nucleated RBCs # 0.0 /100WBC 09/16/22 04:40 ESR 85 mm/hr (0-15) H 09/12/22 08:18 Sodium 135 mmol/L (136-145) L 09/16/22 04:40 Potassium 4.5 mmol/L (3.5-5.1) 09/16/22 04:40 Chloride 103 mmol/L (98-107) 09/16/22 04:40 Carbon Dioxide 24 mmol/L (22-29) 09/16/22 04:40 Anion Gap 12.5 (5-19) 09/16/22 04:40 BUN 15 mg/dL (8-23) 09/16/22 04:40 Creatinine 0.5 mg/dL (0.5-0.9) 09/16/22 04:40 GFR Calculation Not Reportable 09/16/22 04:40 Glucose 128 mg/dL (65-115) H 09/16/22 04:40 Calculated Osmolality 286 mOsm/kg (285-295) 09/15/22 04:44 Calcium 8.3 mg/dL (8.5-10.5) L 09/16/22 04:40 Phosphorus 2.4 mg/dL (2.5-4.5) L 09/16/22 04:40 Magnesium 1.8 mg/dL (1.7-2.3) 09/16/22 04:40 Iron 14 ug/dL (37-145) L 09/11/22 19:25 TIBC 276 mcg/dl 09/11/22 19:25 % Saturation 5.0 % (20-50) L 09/11/22 19:25 Unsat Iron Binding 262 ug/dL (112-347) 09/11/22 19:25 Ferritin 95 ng/mL (15-150) 09/11/22 19:25 Total Bilirubin 0.2 mg/dL (0.15-1.2) 09/15/22 04:44 AST 16 U/L (0-32) 09/15/22 04:44 ALT 12 U/L (0-33) 09/15/22 04:44 Alkaline Phosphatase 88 U/L (35-105) 09/15/22 04:44 C-Reactive Protein 24.6 mg/L (0.0-4.9) H 09/12/22 08:18 Total Protein 6.3 g/dL (6.6-8.7) L 09/15/22 04:44 Albumin 2.4 g/dL (3.5-5.2) L 09/16/22 04:40 Globulin 4.0 g/dL (1.3-4.6) 09/15/22 04:44 Vitamin B12 821 pg/mL (232-1245) 09/16/22 04:40 Folate 13.0 ng/mL (4.8-37.3) 09/17/22 04:33 Urine Color Yellow (Yellow) 09/11/22 22:24 Urine Appearance Clear (CLEAR) 09/11/22 22:24 Urine pH 6.5 (5-7) 09/11/22 22:24 Ur Specific [place] 1.010 (1.005-1.030) 09/11/22 22:24 Urine Protein Neg (Negative) 09/11/22 22:24 Urine Glucose (UA) Norm (Normal) 09/11/22 22:24 Urine Ketones Negative (Negative) 09/11/22 22:24 Urine Blood Neg (Negative) 09/11/22 22:24 Urine Nitrate Negative (Negative) 09/11/22 22:24 Urine Bilirubin Neg (Negative) 09/11/22 22:24 Urine Urobilinogen Norm mg/dL (Negative) 09/11/22 22:24 Ur Leukocyte Esterase Trace (Negative) H 09/11/22 22:24 Urine RBC None /hpf (0-2) 09/11/22 22:24 Urine WBC 0-4 /hpf (0-5) H 09/11/22 22:24 Ur Squamous Epith Cells 0-4 /hpf (0-5) H 09/11/22 22:24 Amorphous Sediment Not Reportable 09/11/22 22:24 Urine Bacteria Trace /hpf (NONE) 09/11/22 22:24 Blood Type A Positive 09/11/22 22:19 Rho(D) Type Positive 09/11/22 22:19 Antibody Screen Negative 09/11/22 22:19 Crossmatch See Detail 09/11/22 22:19 Vitals Last Vital Signs Temp 98.4 F 09/17/22 08:00 Pulse 74 09/17/22 08:00 Resp 18 09/17/22 08:00 BP 120/68 09/17/22 08:00 Pulse Ox 93 09/17/22 08:00 O2 Del Method Room Air 09/17/22 08:00 O2 Flow Rate 6 09/12/22 15:26 Discharge Plan Discharge Patient Disposition: Home Health Service Condition: Stable Prescriptions: New rifampin 300 mg capsule 300 mg PO Q12H 90 Days Qty: 180 0RF ferrous gluconate 324 mg (37.5 mg iron) tablet 324 mg PO BID Qty: 60 0RF aspirin 325 mg Tablet,Delayed Release (Dr/Ec) 325 mg PO DAILY 30 Days Qty: 30 0RF Continued lisinopril 20 mg tablet 20 mg PO QAM vitamin B complex Tablet 1 tab PO QAM vitamin E 268 mg (400 unit) Capsule 1 cap PO QAM Vitamin D3 10 mcg (400 unit) Capsule 10 mcg PO DAILY potassium gluconate 595 mg (99 mg) Tablet 595 mg PO QAM magnesium oxide 400 mg magnesium Tablet 400 mg PO DAILY Centrum Silver Women 8 mg iron-400 mcg-300 mcg Tablet 1 tab PO QAM Discontinued sulfamethoxazole-trimethoprim 800-160 mg tablet 1 tab PO BID Rx Instructions: FOR 7 DAYS (RX FILLED 09/03/22) Discharge Orders: Discharge Order (Routine); Ordered 09/17/22 Ordered By: Rajni Calera Referrals: [facility] [Provider Group] - 10/24/22 10:00 am [facility] [Outside] Erasto Chen DO [Physician] - 2 weeks (Dr. Chen's office should call you with an appointment. recurrent anemia, EGD and colonoscopy ) Rajni Drummond MD [Physician] - 09/24/22 8:15 am Barbara Quinn MD [Primary Care Provider] - 10/01/22 11:45 am Discharge Diet: Usual diet Discharge Activity: Limit activity as instructed, Use walker/crutches as instructed and As per PT/OT instructions Patient Instructions: Anemia, Iron Supplements (By mouth), Aspirin (By mouth), Rifampin (By mouth), Joint Incision and Drainage (IP), Knee Immobilizer (GEN), How to Care for Your PICC (Peripherally Inserted Central Catheter) (GEN), How to Flush Your PICC (Peripherally Inserted Central Catheter) (ED), Opioid Safety Activity Restrictions/Additional Instructions: Wear knee immobilizer. Do not remove your dressing. You may be weightbearing as tolerated. You may come out of your knee immobilizer to change close, but do not bend your knee. Bring your hinged knee brace to office visits. Antibiotic treatments as per recommendations of infectious disease. Discharge Attestations Time Spent in Discharge Care*: greater than 30 min Specific Discharge Activities: educating patient, discussing with pcp/other providers, discussing with machine adjuster leader case trim/social workers/dc planners, documenting/other paperwork and evaluating patient/reviewing data Quality Metrics Clinical Quality Measures [ No reported AMI, CVA or VTE this stay] Coding Level of Care Code Acute Code for [facility] Fwd Diagnoses Prosthetic joint infection T84.50XA Postoperative wound dehiscence T81.31XA Encounter type: initial encounter
[2022-09-17 12:00] VITALS: BP 139/73; PULSE 91; RESP 16; TEMP 37; O2SAT 92
[2022-09-17 12:01] VITALS: BP 120/68; PULSE 74; RESP 18; TEMP 36.9; O2SAT 93
== END 2022-09-17 12:02 | disposition home health service (06) | DRG 486 ==
PROVIDERS: Internal Medicine; Student in an Organized Health Care Education/Training Program; Admitting Provider Specialist; PCP Family Medicine; Visit Provider Specialist
PROC: 0SPD09Z Removal of Liner from Left Knee Joint, Open Approach (ICD-10-PCS; principal; 2022-09-12 12:00)
PROC: 0SPD09Z Removal of Liner from Left Knee Joint, Open Approach (ICD-10-PCS; 2022-09-12 12:00)
DX: T84.54XA Infection and inflammatory reaction due to internal left knee prosthesis, initial encounter (principal); T81.31XA Disruption of external operation (surgical) wound, not elsewhere classified, initial encounter; Y83.1 Surgical operation with implant of artificial internal device as the cause of abnormal reaction of the patient, or of later complication, without mention of misadventure at the time of the procedure; Y92.9 Unspecified place or not applicable; D50.9 Iron deficiency anemia, unspecified; M17.12 Unilateral primary osteoarthritis, left knee; B95.61 Methicillin susceptible Staphylococcus aureus infection as the cause of diseases classified elsewhere; I10 Essential (primary) hypertension; M71.162 Other infective bursitis, left knee; M65.162 Other infective (teno)synovitis, left knee
CPT/HCPCS: 36415; 36430; 36569; 36592; 51702; 71045; 80048; 80053; 80069; 81001; 82274; 82607; 82728; 82746; 83540; 83550; 83735; 84100; 85014; 85018; 85025; 85651; 86140; 86850; 86900; 86920; 87070; 87075; 87077; 87176; 87186; 87205; 93971; 97110; 97116; 97161; 97165; 97530; 97535; 97760; 99214; A9281; C1776; C9113; J0131; J0690; J1756; J2370; J2405; J2704; J3010; J3370; J7030; J7050; P9016

== ENCOUNTER 2022-09-18 03:15 | Emergency (ER) | payer MEDICARE, OTHER, SELFPAY ==
[2022-09-18 03:16] VITALS: BP 159/79; PULSE 94; RESP 18; TEMP 36.4; O2SAT 99; BMI 21.0
--- NOTE | 2022-09-18 03:22 | W.ED.GENADLT ---
HPI - General Adult General: Chief complaint: Extremity Problem,Nontraumatic Stated complaint: fluid leaking from surgical site Time Seen by Provider: 09/18/22 03:20 Source: patient and EMS Mode of arrival: EMS Limitations: no limitations History of Present Illness: 77-year-old female who had a knee replacement on July 31 she had had a staph infection had a repeat surgery on September 12 had some hardware removed she has been on antibiotics through a PICC line she was discharged yesterday she states that tonight when she went to bed she noticed some drainage on her sock and made her concerned she denies any increased pain denies any fevers Associated symptoms: Deny chest pain, dyspnea, headache(s), nausea, rash or vomiting Review of Systems Const: Denies: fever(s), chills, body aches or change in appetite ENMT: Denies: throat pain or dental pain Card: Denies: chest pain Resp: Denies: dyspnea GI: Denies: abdominal pain, nausea, vomiting or diarrhea Musc: Denies: neck pain or back pain Skin/Breast: Denies: rash Neuro: Denies: headache(s) PFSH ED PFSH: Medical History Dehiscence of wound Hypertension Prosthetic joint infection Surgical History Cataracts, bilateral H/O: hysterectomy History of revision of total replacement of left knee joint Date of procedure: July 30, 2022 Diagnosis: 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 Large cysts in the tibial plateau both medially and laterally. Severe degenerative osteoarthritis with varus deformity and lack of range of motion Procedure done: Revision cemented left total knee arthroplasty utilizing revision femoral and tibial components with augments and stem to the tibia Implants: The [employer]ope[employer] total knee system with a size 2 universal cemented triathlon tibial baseplate, a triathlon total knee cemented stem size 12 mm x 50 mm, tibial augment, half blocks, size 2 x 5 mm for medial and lateral tibia, a size 2 right posterior stabilized cemented triathlon femur with a size 2 x 10 mm posterior augment. The triathlon X3 total stabilizer plus tibial insert size 2 x 11 mm and an asymmetric patella size 29 x 9 mm History of revision of total replacement of right knee joint Date of procedure: January 15, 2022 Diagnosis: Right knee severe degenerative osteoarthritis with varus deformity and significant bone loss Post-op findings: Large bone loss particularly medial femoral condyle with cystic change and complete obliteration of bone posteriorly. Severe degenerative osteoarthritis with valgus deformity and lack of range of motion. Procedure done: Revision cemented right total knee arthroplasty utilizing revision femoral and tibial components with augments Implants: The [employer] total knee system with a size 2 universal cemented triathlon tibial baseplate, a triathlon total knee cemented stem size 12 mm x 50 mm, tibial augment, half blocks, size 2 x 5 mm for medial and lateral tibia, size 2 right posterior stabilized cemented triathlon femur with a size 2 x 10 mm posterior augment. The triathlon X3 total stabilizer plus tibial insert size 2 x 11 mm and an asymmetric patella size 29 x 9 mm Social History Smoking and tobacco status: never smoked Second hand smoke exposure: No Smoking risk assessment/counseling performed?: No Alcohol intake: never Substance/Drug Use: never Adopted: No Caregiver/support person: Yes Lives independently: No Household members: spouse Housing: House Marital status: Number of children: 0 Number of grandchildren: 0 Highest education level completed: High School Graduate service: No Current occupational status: retired Current occupational exposures/hazards: No Pets and animals: No Sexually active: Yes Do you think of yourself as: Straight/Heterosexual Current gender identity: Female Special abilio needs: No Agree to transfusion: Yes Physical Exam Const: COMMON NORMALS: no acute distress and patient oriented x3 HENMT: COMMON NORMALS: normocephalic and atraumatic HEAD & SCALP: normocephalic and atraumatic Eye: COMMON NORMALS: conjunctivae normal CONJUNCTIVA: Yes conjunctivae normal Neck/C-Spine: COMMON NORMALS: supple Chest: COMMONS NORMALS: normal inspection of the chest Resp: COMMON NORMALS: normal respiratory effort Cardio: COMMON NORMALS: regular rate RATE: regular rate GI: INSPECTION: Yes normal to inspection Extremity: OTHER: Patient's incision is clean dry and intact I do not see any drainage at this time minimal erythema Neuro: COMMON NORMALS: patient oriented x3 Course Vital Signs: Vital signs: Vital Signs Temperature 97.5 F L 09/18/22 03:16 Pulse Rate 86 09/18/22 03:38 Respiratory Rate 16 09/18/22 03:38 Blood Pressure 130/80 09/18/22 03:38 Pulse Oximetry 100 09/18/22 03:38 Oxygen Delivery Me thod Room Air 09/18/22 03:16 MDM - General Adult Medical Decision Making Patient presents here with a wound check she left the hospital today she is on IV antibiotics I did send images to orthopedic surgery states that wound is a same appearance with no acute abnormalities she agrees with me she has no signs of infection she stable for discharge she is to wear her immobilizer follow-up with orthopedic as scheduled Lab Data 09/18/22 03:40 09/18/22 03:40 Laboratory Results WBC 12.5 10^3/uL (4.0-10.0) H 09/18/22 03:40 RBC 3.80 10^6/uL (4.1-5.3) L 09/18/22 03:40 Hgb 9.7 g/dL (11.5-15.3) L 09/18/22 03:40 Hct 32.2 % (37.0-47.0) L 09/18/22 03:40 MCV 84.7 fl (81-99) 09/18/22 03:40 MCH 25.5 pg (28.0-34.0) L 09/18/22 03:40 MCHC 30.1 g/dL (30.0-36.0) 09/18/22 03:40 RDW 19.2 % (12.1-15.1) H 09/18/22 03:40 Plt Count 605 10^3/cmm (130-400) H 09/18/22 03:40 MPV 8.6 fL (7.4-10.4) 09/18/22 03:40 Neut % (Auto) 72.1 % 09/18/22 03:40 Lymph % (Auto) 16.2 % 09/18/22 03:40 Rhea % (Auto) 9.9 % 09/18/22 03:40 Eos % (Auto) 0.6 % 09/18/22 03:40 Baso % (Auto) 0.6 % 09/18/22 03:40 Neut # (Auto) 8.96 10^3/uL (1.8-7.7) H 09/18/22 03:40 Lymph # (Auto) 2.0 10^3/uL (0.8-4.8) 09/18/22 03:40 Rhea # (Auto) 1.2 10^3/uL (0.2-0.9) H 09/18/22 03:40 Eos # (Auto) 0.1 10^3/uL (0.0-0.8) 09/18/22 03:40 Baso # (Auto) 0.1 10^3/uL (0.0-0.1) 09/18/22 03:40 Nucleated RBC % (auto) 0 % 09/18/22 03:40 Nucleated RBCs # 0.0 /100WBC 09/18/22 03:40 Sodium 136 mmol/L (136-145) 09/18/22 03:40 Chloride 99 mmol/L (98-107) 09/18/22 03:40 Carbon Dioxide 26 mmol/L (22-29) 09/18/22 03:40 BUN 18 mg/dL (8-23) 09/18/22 03:40 Creatinine 0.6 mg/dL (0.5-0.9) 09/18/22 03:40 GFR Calculation Not Reportable 09/18/22 03:40 Calculated Osmolality 285 mOsm/kg (285-295) 09/18/22 03:40 Calcium 9.3 mg/dL (8.5-10.5) 09/18/22 03:40 Total Bilirubin 0.2 mg/dL (0.15-1.2) 09/18/22 03:40 ALT 10 U/L (0-33) 09/18/22 03:40 Total Protein 8.5 g/dL (6.6-8.7) 09/18/22 03:40 Discharge Plan Discharge Patient Disposition: Home Clinical Impression: History of revision of total replacement of left knee joint, Encounter for postoperative wound check Condition: Stable Prescriptions: No Action lisinopril 20 mg tablet 20 mg PO QAM vitamin B complex Tablet 1 tab PO QAM vitamin E 268 mg (400 unit) Capsule 1 cap PO QAM Vitamin D3 10 mcg (400 unit) Capsule 10 mcg PO DAILY potassium gluconate 595 mg (99 mg) Tablet 595 mg PO QAM magnesium oxide 400 mg magnesium Tablet 400 mg PO DAILY Centrum Silver Women 8 mg iron-400 mcg-300 mcg Tablet 1 tab PO QAM rifampin 300 mg capsule 300 mg PO Q12H 90 Days Qty: 180 0RF ferrous gluconate 324 mg (37.5 mg iron) tablet 324 mg PO BID Qty: 60 0RF aspirin 325 mg Tablet,Delayed Release (Dr/Ec) 325 mg PO DAILY 30 Days Qty: 30 0RF Discharge Orders: Discharge ED (Routine); Ordered 09/18/22 Ordered By: Liu Paz Referrals: Rajni Drummond MD [Physician] - 1-3 days Barbara Quinn MD [Primary Care Provider] - Discharge Diet: Advance as tolerated Discharge Activity: Resume usual activity Patient Instructions: Knee Replacement (DC) Coding Level of Care Code ED Computer Hardware Technician for Maggie Ochoa
[2022-09-18 03:38] VITALS: BP 130/80; PULSE 86; RESP 16; O2SAT 100
[2022-09-18 03:47] LABS: Basophils # 0.1 10^3/uL (0.0-0.1); Basophils % 0.6 %; Eosinophils # 0.1 10^3/uL (0.0-0.8); Eosinophils % 0.6 %; Hematocrit 32.2 % (37.0-47.0); Hemoglobin 9.7 g/dL (11.5-15.3); Lymphocytes % 16.2 %; Mean Corpuscular HGB Conc 30.1 g/dL (30.0-36.0); Mean Corpuscular Hemoglobin 25.5 pg (28.0-34.0); Mean Corpuscular Volume 84.7 fl (81-99); Mean Platelet Volume 8.6 fL (7.4-10.4); Monocytes # 1.2 10^3/uL (0.2-0.9); Monocytes % 9.9 %; Neutrophils # 8.96 10^3/uL (1.8-7.7); Neutrophils % 72.1 %; Nucleated Red Blood Cells % 0 %; Platelet Count 605 10^3/cmm (130-400); Red Cell Distribution Width 19.2 % (12.1-15.1); White Blood Count 12.5 10^3/uL (4.0-10.0)
[2022-09-18 04:17] LABS: Alanine Aminotransferase 10 U/L (0-33); Albumin Level 3.2 g/dL (3.5-5.2); Alkaline Phosphatase 112 U/L (35-105); Blood Urea Nitrogen 18 mg/dL (8-23); Calcium 9.3 mg/dL (8.5-10.5); Carbon Dioxide 26 mmol/L (22-29); Chloride 99 mmol/L (98-107); Globulin 5.3 g/dL (1.3-4.6); Glucose 119 mg/dL (65-115); Osmolality Calculated 285 mOsm/kg (285-295); Sodium 136 mmol/L (136-145); Total Bilirubin 0.2 mg/dL (0.15-1.2); Total Protein 8.5 g/dL (6.6-8.7)
[2022-09-18 04:23] VITALS: BP 140/116; PULSE 94; RESP 16; O2SAT 100
[2022-09-18 04:23] LABS: Anion Gap 15.3 (5-19); Aspartate Amino Transferase 24 U/L (0-32); Potassium 4.3 mmol/L (3.5-5.1)
== END 2022-09-18 04:39 | disposition home or self-care (01) ==
PROVIDERS: Emergency Provider Emergency Medicine; PCP Family Medicine
DX: Z48.01 Encounter for change or removal of surgical wound dressing (principal); Z96.652 Presence of left artificial knee joint
CPT/HCPCS: 80053; 85025; 86140; 99283

== ENCOUNTER 2022-09-23 15:02 | Outpatient (CLI) | payer MEDICARE, OTHER, SELFPAY | END 2022-09-23 15:03 | disposition home or self-care (01) | LOC: SPT 15:03 | PROVIDERS: PCP Family Medicine; Visit Provider Specialist | DX: Z46.89 Encounter for fitting and adjustment of other specified devices (principal); T84.50XD Infection and inflammatory reaction due to unspecified internal joint prosthesis, subsequent encounter; Y83.9 Surgical procedure, unspecified as the cause of abnormal reaction of the patient, or of later complication, without mention of misadventure at the time of the procedure | CPT/HCPCS: 97760; 99024; L1830 ==

== ENCOUNTER → 2022-10-02 13:53 | Outpatient (BNVA) | payer MEDICARE, OTHER, SELFPAY | PROVIDERS: PCP Family Medicine; Visit Provider Specialist | DX: T84.53XA Infection and inflammatory reaction due to internal right knee prosthesis, initial encounter (principal); Y79.2 Prosthetic and other implants, materials and accessory orthopedic devices associated with adverse incidents; Z96.652 Presence of left artificial knee joint | CPT/HCPCS: 73560; 73565; 99024 ==

== ENCOUNTER → 2022-10-14 12:19 | Outpatient (BNVA) | payer MEDICARE, OTHER, SELFPAY | PROVIDERS: PCP Family Medicine; Visit Provider Specialist | DX: T84.50XA Infection and inflammatory reaction due to unspecified internal joint prosthesis, initial encounter (principal); T81.31XA Disruption of external operation (surgical) wound, not elsewhere classified, initial encounter; Z96.652 Presence of left artificial knee joint; Y99.9 Unspecified external cause status | CPT/HCPCS: 99024 ==

== ENCOUNTER → 2022-10-24 09:50 | Outpatient (BNVA) | payer MEDICARE, OTHER, SELFPAY | PROVIDERS: PCP Family Medicine; Visit Provider Student in an Organized Health Care Education/Training Program | DX: T81.31XD Disruption of external operation (surgical) wound, not elsewhere classified, subsequent encounter (principal); Y83.8 Other surgical procedures as the cause of abnormal reaction of the patient, or of later complication, without mention of misadventure at the time of the procedure; Y79.2 Prosthetic and other implants, materials and accessory orthopedic devices associated with adverse incidents; Z96.652 Presence of left artificial knee joint; T84.54XA Infection and inflammatory reaction due to internal left knee prosthesis, initial encounter; D64.9 Anemia, unspecified | CPT/HCPCS: 99024; 99205 ==

== ENCOUNTER → 2022-11-11 13:49 | Outpatient (BNVA) | payer MEDICARE, OTHER, SELFPAY | PROVIDERS: PCP Family Medicine; Visit Provider Specialist | DX: Z96.652 Presence of left artificial knee joint (principal); T81.31XD Disruption of external operation (surgical) wound, not elsewhere classified, subsequent encounter; Y83.8 Other surgical procedures as the cause of abnormal reaction of the patient, or of later complication, without mention of misadventure at the time of the procedure | CPT/HCPCS: 73560; 73565; 99024 ==

== ENCOUNTER → 2022-12-05 10:42 | Outpatient (BNVA) | payer MEDICARE, OTHER, SELFPAY | PROVIDERS: PCP Family Medicine; Visit Provider Student in an Organized Health Care Education/Training Program | DX: T84.50XA Infection and inflammatory reaction due to unspecified internal joint prosthesis, initial encounter (principal); I10 Essential (primary) hypertension; X58.XXXA Exposure to other specified factors, initial encounter | CPT/HCPCS: 99215 ==

== ENCOUNTER → 2022-12-16 12:44 | Outpatient (BNVA) | payer MEDICARE, OTHER, SELFPAY | PROVIDERS: PCP Family Medicine; Visit Provider Specialist | DX: Z96.653 Presence of artificial knee joint, bilateral (principal) | CPT/HCPCS: 73560; 73565; 99213 ==

== ENCOUNTER → 2023-01-15 10:09 | Outpatient (BNVA) | payer MEDICARE, OTHER, SELFPAY | PROVIDERS: PCP Family Medicine; Visit Provider Specialist | DX: Z96.652 Presence of left artificial knee joint; T81.31XA Disruption of external operation (surgical) wound, not elsewhere classified, initial encounter; Y83.8 Other surgical procedures as the cause of abnormal reaction of the patient, or of later complication, without mention of misadventure at the time of the procedure | CPT/HCPCS: 99213 ==

== ENCOUNTER → 2023-02-10 11:57 | Outpatient (BNVA) | payer MEDICARE, OTHER, SELFPAY | PROVIDERS: PCP Family Medicine; Visit Provider Specialist | DX: T81.31XS Disruption of external operation (surgical) wound, not elsewhere classified, sequela (principal); Z96.652 Presence of left artificial knee joint; Y83.8 Other surgical procedures as the cause of abnormal reaction of the patient, or of later complication, without mention of misadventure at the time of the procedure | CPT/HCPCS: 99213 ==

== ENCOUNTER → 2023-03-17 13:15 | Outpatient (BNVA) | payer MEDICARE, OTHER, SELFPAY | PROVIDERS: PCP Family Medicine; Visit Provider Specialist | DX: T81.31XD Disruption of external operation (surgical) wound, not elsewhere classified, subsequent encounter; Y83.8 Other surgical procedures as the cause of abnormal reaction of the patient, or of later complication, without mention of misadventure at the time of the procedure; Z96.653 Presence of artificial knee joint, bilateral | CPT/HCPCS: 73560; 73565; 99213 ==

== ENCOUNTER → 2023-10-07 13:39 | Outpatient (BNVA) | payer MEDICARE, OTHER, SELFPAY | PROVIDERS: PCP Family Medicine; Visit Provider Student in an Organized Health Care Education/Training Program | DX: T84.50XA Infection and inflammatory reaction due to unspecified internal joint prosthesis, initial encounter (principal); Z79.2 Long term (current) use of antibiotics; X58.XXXA Exposure to other specified factors, initial encounter | CPT/HCPCS: 99215 ==

== ENCOUNTER → 2023-10-20 11:49 | Outpatient (BNVA) | payer MEDICARE, OTHER, SELFPAY | PROVIDERS: PCP Family Medicine; Visit Provider Specialist | DX: Z96.653 Presence of artificial knee joint, bilateral (principal); M17.0 Bilateral primary osteoarthritis of knee | CPT/HCPCS: 73560; 73565; 99214 ==